=== PATIENT | male | born 1945 | race Caucasian/White ===

== ENCOUNTER → 2016-07-26 | Outpatient (CLI) | payer OTHER ==
[~2016-07-26] MED LIST: ASPIRIN81 M1 PO; AVPAK AZITHROM250 M1 PO; BUMETANIDE2 MG PO; CATAPRES-TTS 10.1 MG PO; CLONIDINE HCL0.1 MG PO; CLONIDINE0.1 MG PO; K-DUR 1010 MEQ PO; K-TAB20 MEQ PO; LANTUS100 U/ML SC; LASIX40 MG PO; LIPITOR40 MG PO; LIPITOR80 MG PO; METOPROLOL SR100 MG PO; Metformin Hydr500 MG PO; OMEPRAZOLE20 M2 PO; PRILOSEC20 M1 PO; TERAZOSIN HCL10 M1 PO; VITAMIN D2000 IU PO; XARE15TA PO; ZESTRIL20 MG PO; ZESTRIL40 MG PO; Zestril,Prinivi40 MG PO
== END | disposition home or self-care (01) ==
LOC: LAB 09:30
PROVIDERS: Internal Medicine
DX: I10 Essential (primary) hypertension (principal)

== ENCOUNTER 2016-08-05 10:17 | Inpatient (IN) | payer OTHER ==
[~2016-08-05] VITALS: Ht 177.8 cm; Wt 110.8 kg
[2016-08-05] VITALS (9 sets, daily range): BP systolic 133–239; BP diastolic 52–94
[2016-08-05] MEDS ORDERED: XARELTO20 M1 PO (10:38)
[2016-08-05] MEDS ORDERED: TRAMADOL HCL50 MG PO (10:42)
[2016-08-05] MEDS ORDERED: SINGULAIR10 M1 PO (10:45)
[2016-08-05 10:47] LABS: HEMATOCRIT 38.8 % (42.0-52.0); HEMOGLOBIN 12.8 g/dl (14.0-18.0); MEAN CELL VOLUME 92.2 fl (80.0-94.0); MEAN CORPUSCULAR HGB 30.4 pg (27.0-31.0); MEAN PLATELET VOLUME 9.8 fl (9.6-12.3); PLATELET COUNT AUTOMATED 145 10*3/uL (130-400); RED BLOOD COUNT 4.21 10*6/uL (4.50-5.90)
[2016-08-05] MEDS ORDERED: LANTUS100 U/ML SC (10:47)
[2016-08-05] MEDS ORDERED: CRESTOR20 M1 PO (10:48)
[2016-08-05] MEDS ORDERED: TRAZODONE50 MG PO (10:51)
[2016-08-05] MEDS ORDERED: MIRALAX17 GM PO (10:51)
[2016-08-05] MEDS ORDERED: KLOR-CON 1010 ME1 PO (10:52)
[2016-08-05] MEDS ORDERED: NASONEX0.05 MG/AC NAS (10:52)
[2016-08-05] MEDS ORDERED: ALLOPURINOL100 MG PO (10:52)
[2016-08-05] MEDS ORDERED: Zaroxolyn,Diul2.5 MG PO (10:53)
[2016-08-05 10:55] LABS: INTERNATIONAL NORM RATIO 1.2 (2.0-3.5); PROTHROMBIN TIME 12.6 SECONDS (9.0-12.4)
[2016-08-05 11:04] LABS: ALBUMIN 3.4 gm/dl (3.1-4.5); BILIRUBIN, TOTAL 1.6 mg/dl (0.2-1.0); POTASSIUM 3.2 mmol/L (3.5-5.1); TOTAL PROTEIN 7.9 gm/dL (6.4-8.2)
[2016-08-05 11:08] LABS: LYMPHOCYTE # 0.2 10*3/uL (1.3-4.4); MONOCYTE # 0.1 10*3/uL (0.1-1.0); NEUTROPHIL # 6.7 10*3/uL (2.3-7.9); NEUTROPHILS 95 % (47-73); PLATELET SUFFICIENCY NORMAL (NORMAL); TOTAL CELLS COUNTED 100 #CELLS
[2016-08-05 11:44] LABS: BILIRUBIN NEGATIVE (NEGATIVE); BLOOD 2+ (NEGATIVE); CLARITY CLEAR (CLEAR); COLOR YELLOW (YELLOW); GLUCOSE 2+ (NEGATIVE); KETONE NEGATIVE (NEGATIVE); LEUKO ESTERASE NEGATIVE (NEGATIVE); NITRITE NEGATIVE (NEGATIVE); PROTEIN 3+ (NEGATIVE); UROBILINOGEN 0.2 E.U./dl (0.2-1.0)
[2016-08-05 11:56] LABS: MUCOUS TRACE; URINE REFLEX COMMENT YES (NO)
[2016-08-06] VITALS: BP 140/66
[2016-08-06 06:09] LABS: BASO % 0.1 % (0.0-1.0); EOS % 0.1 % (1.0-4.0); HEMATOCRIT 36.2 % (42.0-52.0); HEMOGLOBIN 11.9 g/dl (14.0-18.0); LYMPH # 0.8 10*3/uL (1.3-4.4); LYMPH % 11.1 % (27.0-41.0); MEAN CELL VOLUME 92.1 fl (80.0-94.0); MEAN CORPUSCULAR HGB 30.3 pg (27.0-31.0); MEAN CORPUSCULAR HGB CONC 32.9 g/dl (33.0-37.0); MEAN PLATELET VOLUME 10.4 fl (9.6-12.3); MONO # 0.5 10*3/uL (0.1-1.0); MONO % 6.7 % (3.0-9.0); NEUT # 6.1 10*3/uL (2.3-7.9); NEUT % 81.7 % (47.0-73.0); PLATELET COUNT AUTOMATED 158 10*3/uL (130-400); RED BLOOD COUNT 3.93 10*6/uL (4.50-5.90); RED CELL DISTRI WIDTH 13.9 % (0-14.5); WHITE BLOOD COUNT 7.5 10*3/uL (4.8-10.8)
[2016-08-06 06:41] LABS: ALBUMIN 2.8 gm/dl (3.1-4.5); BILIRUBIN, TOTAL 0.9 mg/dl (0.2-1.0); FREE T4 1.18 ng/dl (0.76-1.46); INTERNATIONAL NORM RATIO 1.2 (2.0-3.5); MAGNESIUM 1.4 mg/dL (1.5-2.1); PHOSPHOROUS 2.4 mg/dL (2.5-4.9); POTASSIUM 3.3 mmol/L (3.5-5.1); PROTHROMBIN TIME 12.7 SECONDS (9.0-12.4); TOTAL PROTEIN 6.7 gm/dL (6.4-8.2)
[2016-08-06 06:45] LABS: THYROID STIM HORMONE (HS) 1.16 uIU/ml (0.358-4.75)
[2016-08-06 08:00] VITALS: BP 184/80
[2016-08-06 09:19] LABS: VITAMIN D, 25-HYDROXY 38.1 ng/mL (30-100)
[2016-08-06 09:20] LABS: FOLIC ACID 11.09 ng/mL (>5.38)
[2016-08-06] MEDS ORDERED: LISINOPRIL40 MG PO (09:31)
[2016-08-06 12:00] VITALS: BP 154/68
[2016-08-06 16:00] VITALS: BP 176/84
[2016-08-06] MEDS ORDERED: CLONIDINE0.2 MG PO (16:58)
[2016-08-06 20:00] VITALS: BP 172/78
[2016-08-07] VITALS: BP 150/86
[2016-08-07 08:15] VITALS: BP 166/80
[2016-08-07 12:00] VITALS: BP 134/64
[2016-08-07 16:00] VITALS: BP 120/84
[2016-08-07] MEDS ORDERED: OMEPRAZOLE40 MG PO (16:33)
== END 2016-08-07 17:32 | disposition home or self-care (01) | DRG 305 ==
LOC: ED 10:17 → EDHOLD 13:02 → 4E 13:02
PROVIDERS: Internal Medicine; Nurse Practitioner Family
DX: I16.0 Hypertensive urgency (principal); E11.22 Type 2 diabetes mellitus with diabetic chronic kidney disease; I50.32 Chronic diastolic (congestive) heart failure; I82.621 Acute embolism and thrombosis of deep veins of right upper extremity; I13.0 Hypertensive heart and chronic kidney disease with heart failure and stage 1 through stage 4 chronic kidney disease, or unspecified chronic kidney disease; E11.51 Type 2 diabetes mellitus with diabetic peripheral angiopathy without gangrene; N18.3 Chronic kidney disease, stage 3 (moderate); I44.0 Atrioventricular block, first degree; E78.5 Hyperlipidemia, unspecified; N40.0 Benign prostatic hyperplasia without lower urinary tract symptoms; Z87.891 Personal history of nicotine dependence; Z87.01 Personal history of pneumonia (recurrent); Z82.49 Family history of ischemic heart disease and other diseases of the circulatory system; Z83.6 Family history of other diseases of the respiratory system; Z79.82 Long term (current) use of aspirin; Z79.4 Long term (current) use of insulin; Z79.899 Other long term (current) drug therapy

== ENCOUNTER 2016-08-23 12:00 | Inpatient (IN) | payer OTHER ==
[~2016-08-23] VITALS: Ht 177.8 cm; Wt 117.2 kg
[2016-08-23] VITALS (10 sets, daily range): BP systolic 132–224; BP diastolic 52–106
--- NOTE | ~2016-08-23 | EKG ---
[place], [place] ELECTROCARDIOGRAM REPORT NAME: ALIE CARUSO UNIT #: [id number] ROOM: [facility] DOCTOR: CHAVA RUEDA MD BIRTHDATE: [birth year] DOS: 08/24/2016 TIME: 13:22 p.m. FINDINGS: Normal sinus rhythm at rate 68. Leftward axis. Nonspecific T-wave abnormality. First degree AV block. Abnormal electrocardiogram. CHAVA RUEDA MD CM:EKGRPT:ELECTROCARDIOGRAM REPORT [id number] CHAVA RUEDA MD
--- NOTE | ~2016-08-23 | CON ---
[place], [place] REPORT OF CONSULTATION NAME: ALIE CARUSO UNIT #: [id number] ROOM: 505 DOCTOR: LIS CANORENATO BIRTHDATE: [birth year] DOS: 08/25/2016 GASTROENDOSCOPIC REPORT HISTORY OF PRESENT ILLNESS: A 71-year-old patient who presented with chief complaint of abdominal pain, epigastric distress, pelvic pain, left lower quadrant pain and nausea. The patient was found to have VRE UTI. PAST MEDICAL HISTORY: VRE UTI, diabetes mellitus, congestive heart failure, BPH, hyperlipidemia, hypertension, peripheral vascular disease. PAST SURGICAL HISTORY: Prostate, tonsillectomy, adenoidectomy. SOCIAL HISTORY: Alcohol consumption with toxic levels at the time of admission, smoker. FAMILY HISTORY: Noncontributory. ALLERGIES: No known. MEDICATIONS: List has been reviewed including omeprazole. MEDICATIONS: List has been reviewed. REVIEW OF SYSTEMS: HEENT: Denies double vision or blurred vision. RESPIRATORY: Denies shortness of breath. CARDIOVASCULAR: Denies acute chest pain. DIGESTIVE SYSTEM: Nausea, vomiting. GENITOURINARY: UTI VRE positive. PHYSICAL EXAMINATION: VITAL SIGNS: Stable. HEENT: Head normocephalic, nontraumatic. Mouth buccal mucosa benign. NECK: Supple, no thyromegaly. CHEST: Symmetric anatomy, equal expansion. Decreased air entry, bibasilar, more so on the left base. HEART: Normal sinus rhythm, no gallop, no murmur. ABDOMEN: Protruding, large, not tender. Bowel sounds present. No hepato-organomegaly can be assessed. EXTREMITIES: Trace pedal edema bilaterally, stasis dermatitis of mild degree. NEUROLOGIC: Alert, oriented to time, place, person. Sensory, motor intact. Cranial nerves 2-12 intact. IMPRESSION: Nausea, vomiting, UTI. Nausea could be somewhat reactive secondary to his VRE sepsis of greater than 100,000 population of bacteria. His labs and records have been reviewed. His latest white blood cells 5.6, H and H of 10 and 32. Basic metabolic panel, CBC and CT scan of the abdomen and sonographic have been reviewed. [place], [place] REPORT OF CONSULTATION NAME: ALIE CARUSO UNIT #: [id number] ROOM: 505 DOCTOR: LIS CANO,RENATO BIRTHDATE: [birth year] PLAN AND DISCUSSION: Will have standing by antibiotic therapy. Case discussed with Dr. Garcia workup in progress. RENATO HAYS MD CM:CONSTR:REPORT OF CONSULTATION 1318 08/26/16 0505 interface
[~2016-08-23 12:00] MED LIST changes: +ALLOPURINOL100 MG PO; +CLONIDINE0.2 MG PO; +CRESTOR20 M1 PO; +KLOR-CON 1010 ME1 PO; +LISINOPRIL40 MG PO; +MIRALAX17 GM PO; +NASONEX0.05 MG/AC NAS; +OMEPRAZOLE40 MG PO; +SINGULAIR10 M1 PO; +TRAMADOL HCL50 MG PO; +TRAZODONE50 MG PO; +XARELTO20 M1 PO; +Zaroxolyn,Diul2.5 MG PO
[2016-08-23 13:16] LABS: BASO % 0.2 % (0.0-1.0); HEMATOCRIT 37.4 % (42.0-52.0); HEMOGLOBIN 12.6 g/dl (14.0-18.0); LYMPH # 0.7 10*3/uL (1.3-4.4); LYMPH % 11.9 % (27.0-41.0); MEAN CELL VOLUME 91.4 fl (80.0-94.0); MEAN CORPUSCULAR HGB 30.8 pg (27.0-31.0); MEAN CORPUSCULAR HGB CONC 33.7 g/dl (33.0-37.0); MEAN PLATELET VOLUME 9.7 fl (9.6-12.3); MONO # 0.2 10*3/uL (0.1-1.0); MONO % 3.9 % (3.0-9.0); NEUT # 4.7 10*3/uL (2.3-7.9); NEUT % 83.6 % (47.0-73.0); PLATELET COUNT AUTOMATED 186 10*3/uL (130-400); RED BLOOD COUNT 4.09 10*6/uL (4.50-5.90); RED CELL DISTRI WIDTH 13.2 % (0-14.5); WHITE BLOOD COUNT 5.6 10*3/uL (4.8-10.8)
[2016-08-23 13:34] LABS: ALBUMIN 2.8 gm/dl (3.1-4.5); BILIRUBIN, TOTAL 0.6 mg/dl (0.2-1.0); MAGNESIUM 1.3 mg/dL (1.5-2.1); POTASSIUM 3.7 mmol/L (3.5-5.1); TOTAL PROTEIN 7.2 gm/dL (6.4-8.2)
[2016-08-23 13:36] LABS: TROPONIN I 0.02 ng/ml (<0.045)
[2016-08-23 13:41] LABS: THYROID STIM HORMONE (HS) 1.27 uIU/ml (0.358-4.75)
[2016-08-23 14:51] LABS: BILIRUBIN NEGATIVE (NEGATIVE); BLOOD 2+ (NEGATIVE); CLARITY CLEAR (CLEAR); COLOR YELLOW (YELLOW); GLUCOSE NEGATIVE (NEGATIVE); KETONE NEGATIVE (NEGATIVE); LEUKO ESTERASE TRACE (NEGATIVE); NITRITE NEGATIVE (NEGATIVE); PROTEIN 3+ (NEGATIVE); SPECIFIC GRAVITY 1.015 (1.005-1.030); UROBILINOGEN 0.2 E.U./dl (0.2-1.0)
[2016-08-23 14:59] LABS: BACTERIA 3+; RBC 21-30 rbc/hpf (0-2); URINE AMPHETAMINES < 1000 (1000ng/ml); URINE BARBITURATES < 200 (200ng/ml); URINE COCAINE < 300 (300ng/ml); URINE REFLEX COMMENT YES (NO)
[2016-08-23 15:13] LABS: LA>2 REFLEX 2 HR DRAW NOW
[2016-08-23 15:37] LABS: LA>2 RFLX FOLLOW UP AT 2 HRS 5.4 mmol/L (0.4-2.0)
[2016-08-23 17:30] LABS: LA>2 REFLEX 4 HR DRAW NOW
[2016-08-24] VITALS (7 sets, daily range): BP systolic 130–170; BP diastolic 54–82
[2016-08-24 00:54] LABS: CKMB 1.1 ng/ml (0.5-3.6)
[2016-08-24 00:55] LABS: CKMB 1.2 ng/ml (0.5-3.6)
[2016-08-24 00:59] LABS: TROPONIN I 0.103 ng/ml (<0.045); TROPONIN I 0.107 ng/ml (<0.045)
[2016-08-24 06:15] LABS: BASO % 0.4 % (0.0-1.0); EOS % 0.2 % (1.0-4.0); HEMOGLOBIN 10.7 g/dl (14.0-18.0); LYMPH # 1.1 10*3/uL (1.3-4.4); LYMPH % 19.5 % (27.0-41.0); MEAN CELL VOLUME 91.7 fl (80.0-94.0); MEAN CORPUSCULAR HGB 30.7 pg (27.0-31.0); MEAN CORPUSCULAR HGB CONC 33.4 g/dl (33.0-37.0); MEAN PLATELET VOLUME 9.9 fl (9.6-12.3); MONO # 0.6 10*3/uL (0.1-1.0); MONO % 11.4 % (3.0-9.0); NEUT # 3.8 10*3/uL (2.3-7.9); NEUT % 68.1 % (47.0-73.0); PLATELET COUNT AUTOMATED 148 10*3/uL (130-400); RED BLOOD COUNT 3.49 10*6/uL (4.50-5.90); RED CELL DISTRI WIDTH 13.4 % (0-14.5); WHITE BLOOD COUNT 5.6 10*3/uL (4.8-10.8)
[2016-08-24 06:28] LABS: CKMB 1.1 ng/ml (0.5-3.6)
[2016-08-24 06:36] LABS: TROPONIN I 0.071 ng/ml (<0.045)
[2016-08-24 06:47] LABS: ALBUMIN 2.5 gm/dl (3.1-4.5); POTASSIUM 3.4 mmol/L (3.5-5.1)
[2016-08-24 06:49] LABS: BILIRUBIN, TOTAL 0.7 mg/dl (0.2-1.0); TOTAL PROTEIN 6.2 gm/dL (6.4-8.2)
[2016-08-25 00:19] VITALS: BP 172/88
[2016-08-25 07:38] LABS: ALBUMIN 2.4 gm/dl (3.1-4.5); MAGNESIUM 1.7 mg/dL (1.5-2.1); PHOSPHOROUS 3.4 mg/dL (2.5-4.9); POTASSIUM 3.6 mmol/L (3.5-5.1)
[2016-08-25 08:00] VITALS: BP 158/70
[2016-08-25 12:00] VITALS: BP 161/69
[2016-08-25 16:00] VITALS: BP 152/70
[2016-08-25 20:00] VITALS: BP 175/79
[2016-08-26] VITALS: BP 175/74
[2016-08-26 08:00] VITALS: BP 140/82
[2016-08-26] MEDS ORDERED: AUGMENTIN 875875 MG PO (10:46)
[2016-08-26] MEDS ORDERED: D-1000 185 MG-11 TAB PO (10:46)
[2016-08-26 12:00] VITALS: BP 128/76
== END 2016-08-26 13:28 | disposition home or self-care (01) | DRG 871 ==
LOC: ED 12:00 → EDHOLD 15:20 → 5E 15:20
PROVIDERS: Emergency Medicine; Hospitalist; Internal Medicine
DX: A41.9 Sepsis, unspecified organism (principal); N17.0 Acute kidney failure with tubular necrosis; E43 Unspecified severe protein-calorie malnutrition; I50.33 Acute on chronic diastolic (congestive) heart failure; I13.0 Hypertensive heart and chronic kidney disease with heart failure and stage 1 through stage 4 chronic kidney disease, or unspecified chronic kidney disease; N30.01 Acute cystitis with hematuria; R65.20 Severe sepsis without septic shock; N18.3 Chronic kidney disease, stage 3 (moderate); E78.5 Hyperlipidemia, unspecified; N40.0 Benign prostatic hyperplasia without lower urinary tract symptoms; E11.22 Type 2 diabetes mellitus with diabetic chronic kidney disease; Z86.718 Personal history of other venous thrombosis and embolism; Z68.36 Body mass index [BMI] 36.0-36.9, adult; D64.9 Anemia, unspecified; F10.10 Alcohol abuse, uncomplicated; E87.6 Hypokalemia; E11.65 Type 2 diabetes mellitus with hyperglycemia; E11.51 Type 2 diabetes mellitus with diabetic peripheral angiopathy without gangrene; Z87.01 Personal history of pneumonia (recurrent); Z87.891 Personal history of nicotine dependence; Z84.2 Family history of other diseases of the genitourinary system; Z83.3 Family history of diabetes mellitus; Z82.49 Family history of ischemic heart disease and other diseases of the circulatory system; Z79.899 Other long term (current) drug therapy

== ENCOUNTER → 2016-09-04 | Outpatient (CLI) | payer OTHER ==
[~2016-09-04] MED LIST changes: +AUGMENTIN 875875 MG PO; +D-1000 185 MG-11 TAB PO
[2016-09-04 11:56] LABS: URINE TOTAL PROTEIN CONC 181.7 mg/dL (<11.9)
== END | disposition home or self-care (01) ==
LOC: LAB 10:49
PROVIDERS: Internal Medicine
DX: R80.9 Proteinuria, unspecified (principal)

== ENCOUNTER → 2016-09-27 | Outpatient (CLI) | payer OTHER ==
[2016-09-27 14:57] LABS: HEMOGLOBIN A1c 7.6 % (4.8-5.6)
== END | disposition home or self-care (01) ==
LOC: LAB 13:58
PROVIDERS: Internal Medicine
DX: E11.43 Type 2 diabetes mellitus with diabetic autonomic (poly)neuropathy (principal)

== ENCOUNTER → 2016-09-29 | Outpatient (CLI) | payer OTHER | END | disposition home or self-care (01) | LOC: RAD 13:38 | DX: M25.461 Effusion, right knee (principal) ==

== ENCOUNTER → 2016-10-13 | Outpatient (CLI) | payer OTHER ==
[2016-10-13 13:17] LABS: BASO % 0.4 % (0.0-1.0); EOS # 0.1 10*3/uL (0.0-0.4); EOS % 1.4 % (1.0-4.0); HEMATOCRIT 34.3 % (42.0-52.0); LYMPH # 0.8 10*3/uL (1.3-4.4); LYMPH % 13.6 % (27.0-41.0); MEAN CELL VOLUME 95.8 fl (80.0-94.0); MEAN CORPUSCULAR HGB 30.7 pg (27.0-31.0); MEAN CORPUSCULAR HGB CONC 32.1 g/dl (33.0-37.0); MONO # 0.4 10*3/uL (0.1-1.0); NEUT # 4.4 10*3/uL (2.3-7.9); NEUT % 77.4 % (47.0-73.0); PLATELET COUNT AUTOMATED 169 10*3/uL (130-400); RED BLOOD COUNT 3.58 10*6/uL (4.50-5.90); RED CELL DISTRI WIDTH 14.4 % (0-14.5); WHITE BLOOD COUNT 5.7 10*3/uL (4.8-10.8)
[2016-10-13 13:25] LABS: BILIRUBIN NEGATIVE (NEGATIVE); BLOOD 2+ (NEGATIVE); CLARITY SL CLOUDY (CLEAR); COLOR YELLOW (YELLOW); GLUCOSE NEGATIVE (NEGATIVE); KETONE NEGATIVE (NEGATIVE); LEUKO ESTERASE NEGATIVE (NEGATIVE); NITRITE NEGATIVE (NEGATIVE); PROTEIN 3+ (NEGATIVE)
[2016-10-13 13:28] LABS: URINE TP/CRE RATIO 3.9 (<0.21)
[2016-10-13 13:41] LABS: ALBUMIN 2.8 gm/dl (3.1-4.5); MAGNESIUM 1.7 mg/dL (1.5-2.1); PHOSPHOROUS 3.4 mg/dL (2.5-4.9); POTASSIUM 3.9 mmol/L (3.5-5.1)
[2016-10-13 13:43] LABS: BACTERIA TRACE; EPITHELIAL CELLS 0-2; MUCOUS TRACE; RBC 0-2 rbc/hpf (0-2); URINE REFLEX COMMENT YES (NO)
[2016-10-13 14:25] LABS: FERRITIN 73.9 ng/mL (22.0-322.0); VITAMIN D, 25-HYDROXY 33.2 ng/mL (30-100)
== END | disposition home or self-care (01) ==
LOC: LAB 12:37
PROVIDERS: Internal Medicine Nephrology
DX: N18.3 Chronic kidney disease, stage 3 (moderate) (principal); N25.81 Secondary hyperparathyroidism of renal origin; E83.42 Hypomagnesemia; D63.1 Anemia in chronic kidney disease; Z79.899 Other long term (current) drug therapy

== ENCOUNTER → 2016-10-15 | Outpatient (CLI) | payer OTHER ==
[2016-10-15 12:17] LABS: URINE TOTAL PROTEIN CONC 248.5 mg/dL (<11.9)
[2016-10-15 12:20] LABS: PATIENT HEIGHT 70.5 Inches
== END | disposition home or self-care (01) ==
LOC: LAB 11:16
PROVIDERS: Internal Medicine Nephrology
DX: N18.3 Chronic kidney disease, stage 3 (moderate) (principal); E83.42 Hypomagnesemia; D63.1 Anemia in chronic kidney disease; Z79.899 Other long term (current) drug therapy

== ENCOUNTER 2016-11-09 15:09 | Inpatient (IN) | payer OTHER ==
[~2016-11-09] VITALS: Ht 177.8 cm; Wt 121.1 kg
[2016-11-09 15:30] VITALS: BP 172/92
[2016-11-09 17:16] LABS: BASO % 0.1 % (0.0-1.0); EOS % 0.1 % (1.0-4.0); HEMOGLOBIN 12.1 g/dl (14.0-18.0); LYMPH # 0.5 10*3/uL (1.3-4.4); LYMPH % 8.1 % (27.0-41.0); MEAN CELL VOLUME 96.1 fl (80.0-94.0); MEAN CORPUSCULAR HGB 31.4 pg (27.0-31.0); MEAN CORPUSCULAR HGB CONC 32.7 g/dl (33.0-37.0); MEAN PLATELET VOLUME 11.2 fl (9.6-12.3); MONO # 0.5 10*3/uL (0.1-1.0); MONO % 6.7 % (3.0-9.0); NEUT # 5.7 10*3/uL (2.3-7.9); NEUT % 84.7 % (47.0-73.0); PLATELET COUNT AUTOMATED 123 10*3/uL (130-400); RED BLOOD COUNT 3.85 10*6/uL (4.50-5.90); RED CELL DISTRI WIDTH 13.9 % (0-14.5); WHITE BLOOD COUNT 6.7 10*3/uL (4.8-10.8)
[2016-11-09 17:33] LABS: ALBUMIN 2.7 gm/dl (3.1-4.5); BILIRUBIN, TOTAL 1.1 mg/dl (0.2-1.0); FREE T4 1.17 ng/dl (0.76-1.46); POTASSIUM 3.7 mmol/L (3.5-5.1); TOTAL PROTEIN 6.5 gm/dL (6.4-8.2)
[2016-11-09 17:37] LABS: TROPONIN I 0.072 ng/ml (<0.045)
[2016-11-09] MEDS ORDERED: Lasix80 MG PO (17:38)
[2016-11-09 17:49] LABS: THYROID STIM HORMONE (HS) 1.06 uIU/ml (0.358-4.75)
[2016-11-09 20:00] VITALS: BP 170/80
[2016-11-10] VITALS: BP 170/82
[2016-11-10 06:46] LABS: PHOSPHOROUS 2.3 mg/dL (2.5-4.9)
[2016-11-10 06:52] LABS: HEMOGLOBIN A1c 6.5 % (4.8-5.6)
[2016-11-10 07:47] LABS: VITAMIN D, 25-HYDROXY 35.9 ng/mL (30-100)
[2016-11-10 07:48] LABS: FOLIC ACID 7.8 ng/mL (>5.38)
[2016-11-10 08:00] VITALS: BP 166/82; BP 184/82
[2016-11-10 16:00] VITALS: BP 152/72
[2016-11-11] VITALS: BP 115/86
[2016-11-11 07:37] LABS: PHOSPHOROUS 3.4 mg/dL (2.5-4.9); POTASSIUM 3.6 mmol/L (3.5-5.1)
[2016-11-11 08:00] VITALS: BP 160/82
[2016-11-11 12:00] VITALS: BP 156/80
[2016-11-11 16:26] VITALS: BP 140/90
[2016-11-12] VITALS: BP 140/66
[2016-11-12 08:00] VITALS: BP 166/94
[2016-11-12 16:00] VITALS: BP 140/86
[2016-11-13] VITALS: BP 140/90
[2016-11-13 08:00] VITALS: BP 160/80
[2016-11-13] MEDS ORDERED: BUMETANIDE2 MG PO (09:25)
== END 2016-11-13 10:05 | disposition home or self-care (01) | DRG 291 ==
LOC: 5E 15:09
PROVIDERS: Internal Medicine
DX: I13.0 Hypertensive heart and chronic kidney disease with heart failure and stage 1 through stage 4 chronic kidney disease, or unspecified chronic kidney disease (principal); I50.33 Acute on chronic diastolic (congestive) heart failure; E43 Unspecified severe protein-calorie malnutrition; E11.42 Type 2 diabetes mellitus with diabetic polyneuropathy; E11.22 Type 2 diabetes mellitus with diabetic chronic kidney disease; D69.6 Thrombocytopenia, unspecified; E11.43 Type 2 diabetes mellitus with diabetic autonomic (poly)neuropathy; E11.51 Type 2 diabetes mellitus with diabetic peripheral angiopathy without gangrene; K31.84 Gastroparesis; N40.0 Benign prostatic hyperplasia without lower urinary tract symptoms; N18.3 Chronic kidney disease, stage 3 (moderate); Z86.718 Personal history of other venous thrombosis and embolism; K21.9 Gastro-esophageal reflux disease without esophagitis; E78.5 Hyperlipidemia, unspecified; Z87.442 Personal history of urinary calculi; Z87.891 Personal history of nicotine dependence; Z79.4 Long term (current) use of insulin; E55.9 Vitamin D deficiency, unspecified; F10.10 Alcohol abuse, uncomplicated; E66.09 Other obesity due to excess calories; Z68.37 Body mass index [BMI] 37.0-37.9, adult; M1A.9XX0 Chronic gout, unspecified, without tophus (tophi); G47.00 Insomnia, unspecified; D53.9 Nutritional anemia, unspecified; D72.825 Bandemia; E83.39 Other disorders of phosphorus metabolism; E80.6 Other disorders of bilirubin metabolism

== ENCOUNTER → 2017-02-16 | Outpatient (CLI) | payer OTHER ==
[~2017-02-16] MED LIST changes: +Lasix80 MG PO
[2017-02-16 10:01] LABS: ALBUMIN 2.4 gm/dl (3.1-4.5); CREATININE 2.28 mg/dL (0.70-1.30); MAGNESIUM 1.7 mg/dL (1.5-2.1); PHOSPHOROUS 2.7 mg/dL (2.5-4.9); POTASSIUM 3.1 mmol/L (3.5-5.1)
[2017-02-16 10:10] LABS: BASO % 0.3 % (0.0-1.0); EOS # 0.1 10*3/uL (0.0-0.4); EOS % 1.5 % (1.0-4.0); HEMOGLOBIN 12.7 g/dl (14.0-18.0); LYMPH # 1.1 10*3/uL (1.3-4.4); LYMPH % 18.5 % (27.0-41.0); MEAN CORPUSCULAR HGB 31.8 pg (27.0-31.0); MEAN CORPUSCULAR HGB CONC 33.4 g/dl (33.0-37.0); MEAN PLATELET VOLUME 10.3 fl (9.6-12.3); MONO # 0.5 10*3/uL (0.1-1.0); MONO % 7.8 % (3.0-9.0); NEUT # 4.4 10*3/uL (2.3-7.9); NEUT % 71.6 % (47.0-73.0); PLATELET COUNT AUTOMATED 158 10*3/uL (130-400); RED CELL DISTRI WIDTH 13.3 % (0-14.5); WHITE BLOOD COUNT 6.2 10*3/uL (4.8-10.8)
[2017-02-16 10:57] LABS: FERRITIN 187.9 ng/mL (22.0-322.0); PTH INTACT 51.7 pg/mL (14.0-72.0); VITAMIN D, 25-HYDROXY 33.8 ng/mL (30-100)
[2017-02-16 14:40] LABS: BILIRUBIN NEGATIVE (NEGATIVE); BLOOD TRACE-INTACT (NEGATIVE); CLARITY SL CLOUDY (CLEAR); COLOR YELLOW (YELLOW); GLUCOSE NEGATIVE (NEGATIVE); KETONE NEGATIVE (NEGATIVE); LEUKO ESTERASE NEGATIVE (NEGATIVE); NITRITE NEGATIVE (NEGATIVE)
[2017-02-16 14:50] LABS: URINE CREATININE RANDOM 92.3 mg/dL
[2017-02-16 14:55] LABS: BACTERIA 4+
== END | disposition home or self-care (01) ==
LOC: LAB 09:18
PROVIDERS: Internal Medicine Nephrology
DX: N18.3 Chronic kidney disease, stage 3 (moderate) (principal); D63.1 Anemia in chronic kidney disease; N25.81 Secondary hyperparathyroidism of renal origin; E83.42 Hypomagnesemia; Z79.899 Other long term (current) drug therapy

== ENCOUNTER 2017-02-21 10:37 | Inpatient (IN) | payer OTHER ==
[~2017-02-21] VITALS: Ht 177.8 cm; Wt 121.1 kg
--- NOTE | ~2017-02-21 | PR ---
[place], [place] PROGRESS NOTE NAME: ALIE CARUSO [facility] #: [id number] UNIT #: [id number] ROOM: 427 DOCTOR: ELVA JENSEN MD BIRTHDATE: [birth year] DOS: 02/24/2017 SUBJECTIVE: He was seen by Dr. Keita yesterday and the day before. He apparently had come in because of increasing shortness of breath and swelling in the legs. He has essential hypertension and has had diastolic heart failure previously. PHYSICAL EXAMINATION: GENERAL: His breathing appeared to be better. He is not in any distress, very comfortable. Complexion is fine. VITAL SIGNS: Pulse is 66. Blood pressure is 130/52. NECK: JVP appears to be normal. LUNGS: He has moderately diminished breath sounds with lot of crackles in both lungs. EXTREMITIES: He has 2+ edema in the lower extremities and has pressure stockings on. He had a right thoracentesis done today and chest x-ray had shown no pneumothorax and a small right pleural effusion. BUN is 24, creatinine 2.98, potassium 3.6. An echocardiogram demonstrated normal LV systolic function. IMPRESSION: 1. This patient has diastolic heart failure that seemed to be better. 2. Significant renal insufficiency is present and diuretics have to be used cautiously for fear of making this worse. ELVA JENSEN MD CM:PNTRANS [phone] ELVA JENSEN MD 02/24/17 2337 interface
--- NOTE | ~2017-02-21 | PR ---
[place], [place] [facility]GRESS [id number] UNIT #: [id number] ROOM: 427 DOCTOR: CARLOZ ARGUETA MD BIRTHDATE: [birth year] DOS: 02/28/2017 SUBJECTIVE: He has been noted comfortable at this time, sitting on the chair. Denies symptoms of acute shortness of breath, coughing, chest pain or hemoptysis. OBJECTIVE: VITAL SIGNS: Recorded shows a normal temperature, respiratory rate 20, heart rate 61, blood pressure 138/59. Pulse oxygen saturation on room air 94% saturation. HEENT: Examination shows no acute change. NECK: Supple. CARDIOVASCULAR: S1, S2 audible. LUNGS: Mild decreased breath sounds in the left lower lung. ABDOMEN: Soft, nontender. LABORATORY DATA: CMP, 02/28/2017, BUN 34, creatinine 3.23. Glucose 122. Albumin is 1.8. CBC: Hemoglobin 9.5, hematocrit 29.7, platelet count normal and WBC count was normal. Urine for Legionella antigen and streptococcal antigen was noted all negative. Culture of the pleural fluid was noted no bacterial growth. IMPRESSION: 1. The patient with transudative recurrent pleural fluid, lymphadenopathy in the left hilar area, significance unknown. 2. The patient with superimposed chronic kidney disease which has been noted essentially stable. PLAN OF MANAGEMENT: No changes in the plan of treatment at this time, continue the patient on current therapy, plan of care as previously in progress. Discharge planning per primary care physician. Outpatient assessment was suggested post-discharge for further assessment of the abnormal CT scan of the chest findings. [place], [place] PROGRESS NOTE NAME: ALIE CARUSO UNIT #: [id number] ROOM: [facility] DOCTOR: CAROLZ ARGUETA MD BIRTHDATE: [birth year] CARLOZ KIDD MD CM:PNTRANS [phone] CARLOZ SANDHU MD 02/28/17 2242 interface
--- NOTE | ~2017-02-21 | PR ---
[place], [place] PROGRESS NOTE NAME: ALIE CARUSO [facility] #: [id number] UNIT #: [id number] ROOM: 427 DOCTOR: BERNABE SANDHU MD,CARLOZ BIRTHDATE: [birth year] DOS: 02/25/2017 SUBJECTIVE: He had been noted quite comfortable at this time. Thoracentesis done yesterday about 1200 mL. Pleural fluids were removed. The patient has been noted improvement in the respiratory status. After that, he denies any symptoms of chest pain at this time. Coughing has been noted not resolved completely as per patient. OBJECTIVE: VITAL SIGNS: For the patient which were recorded were normal temperature, respiratory rate 18, heart rate 66, blood pressure 138/59-112/76. The pulse oxygen saturation noted as 92%. HEENT: Shows no acute change. NECK: Supple. CARDIOVASCULAR: S1, S2 is audible. LUNGS: The patient was noted without any wheezing or crackles. ABDOMEN: Soft, nontender. EXTREMITIES: Shows no edema. LABORATORY DATA: Workup, connective tissue disorder and others was available. All the workup were tested. Labs were noted negative. The CBC was noted with hemoglobin of 10, hematocrit 30.6, WBC count normal, platelet count was normal. Analysis of the pleural fluid from yesterday, the left pleural space was noted. WBCs of 181 with a various differential including 39% macrophages, 55% neutrophils. Glucose noted 97, total protein of 2.3, cholesterol less than 50, LDH of 118. Triglycerides were normal, albumin 1.8. All noted consistent with findings of transudative effusion. IMPRESSION: 1. Recurrent transudative effusion was noted most likely related to underlying cardiac abnormalities or current acute kidney disease with acute kidney injury would be considered most likely reason of fluid reaccumulation. Creatinine has been noted gradually increased and today was noted as 3.04. 2. Lymph node abnormality. The patient noted left hemithorax, which will be assessed further as an outpatient. 3. Chronic obesity. PLAN OF TREATMENT: No changes from the pulmonary standpoint. Monitor results of the culture and the cytology of the pleural fluid. Continue the close monitoring of the acute kidney injury and management per Nephrology services. Supportive care, repeat plan of management and care plan. Usual treatment. Addition of treatment changes will be made for the patient based on the progression of the illness. [place], [place] PROGRESS NOTE NAME: ALIE CARUSO UNIT #: [id number] ROOM: 427 DOCTOR: CARLOZ ARGUETA MD BIRTHDATE: [birth year] CARLOZ KIDD MD CM:SAHNICE [id number] [id number] CARLOZ SANDHU MD 02/26/17 0020 interface
--- NOTE | ~2017-02-21 | PR ---
[place], [place] PROGRESS NOTE NAME: ALIE CARUSO UNIT #: [id number] ROOM: 427 DOCTOR: EVELIA NUNEZ MD BIRTHDATE: [birth year] DOS: 02/23/2017 24-hour events. I am covering on behalf of Dr. Li. SUBJECTIVE: The patient is positive 100 mL for the last 24 hours. Still complains of significant cough. His ejection fraction was reported to be normal. Dr. Li is to repeat the echocardiogram. Denies any chest discomfort. Does have dyspnea on exertion and productive cough, also has abdominal distention. OBJECTIVE: VITAL SIGNS: Blood pressure is 150/70. He is in sinus rhythm. HEENT: Elevated JVD. LUNGS: Diminished air entry. HEART: Sounds are regular. ABDOMEN: Distended, positive bowel sounds. EXTREMITIES: About 2+ edema. NEUROLOGIC: Stable. LABORATORY DATA: Sodium 138, potassium 3.6, GFR is significantly low at 23, creatinine is 2.7. IMPRESSION: Exacerbation of diastolic heart failure, chronic renal failure, left-sided pleural effusion with multifocal pneumonia, leukocytosis, hypokalemia, hyperlipidemia. RECOMMENDATIONS: Continue the present care. Monitor the renal function very closely. The patient should have very strict I's and O's. Continue with hydralazine, Bumex, Lopressor and clonidine. Consideration should to be given to hold the lisinopril at this point as the creatinine is going up, but continue the hydralazine for unloading along with the Bumex to diminish the preload also with strict I's and O's. Continue antibiotics and we will follow up. [place], [place] PROGRESS NOTE NAME: ALIE CARUSO UNIT #: [id number] ROOM: 427 DOCTOR: EVELIA NUNEZ MD BIRTHDATE: [birth year] EVELIA NUNEZ MD CM:PNTRANS [id number] EVELIA NUNEZ MD 02/23/17 2355 interface
--- NOTE | ~2017-02-21 | PR ---
[place], [place] PROGRESS NOTE NAME: ALIE CARUSO UNIT #: [id number] ROOM: 427 DOCTOR: KYMBERLY CLARK MD BIRTHDATE: [birth year] DOS: SUBJECTIVE: The patient was seen and examined. He appears well. States he is feeling better. No shortness of breath, nausea or vomiting. He is sitting in a chair on room air. PHYSICAL EXAMINATION: VITAL SIGNS: Temperature 98.5, pulse 65, respiratory rate 20, blood pressure 130/56. GENERAL: He is awake and alert, in no acute distress. HEENT: Shows no JVD. LUNGS: Had normal work of breathing. HEART: Normal S1, S2. ABDOMEN: Soft, nontender. EXTREMITIES: Have 1+ edema. SKIN: Showed no rash. LABORATORY DATA: Hemoglobin 9.6, white count is 7.2, platelets 171. Sodium 139, potassium 4.1, CO2 29, BUN 33, creatinine 3.15, calcium 7.6, albumin of 1.8. Blood cultures showed no growth to date. ASSESSMENT AND PLAN: 1. Stage 4 chronic kidney disease. The patient has fluctuating creatinine levels, however, stable today. Diuretics and his CHUY inhibitor, continue. Continue to follow trends while in the hospital. 2. Hypertension. Continue current medications. 3. Anemia. Consideration can be made for erythropoietin stimulating agents at some point. 4. Pleural effusion. He is status post thoracentesis and being followed by pulmonary. 5. History of diabetes. The patient appears to have nephrotic syndrome. Continue supportive care. Again, I did note the patient is on Xarelto. Consideration should be made to discontinue this medication with his fairly advanced renal dysfunction and change to another anticoagulant of choice such as Eliquis or Coumadin. [place], [place] PROGRESS NOTE NAME: ALIE CARUSO UNIT #: [id number] ROOM: 427 DOCTOR: KYMBERLY CLARK MD BIRTHDATE: [birth year] KYMBERLY CLARK MD CM:PNTRANS [id number] KYMBERLY CLARK MD 02/27/17 1728 interface
--- NOTE | ~2017-02-21 | PR ---
[place], [place] PROGRESS NOTE NAME: ALIE CARUSO UNIT #: [id number] ROOM: 427 DOCTOR: KYMBERLY CLARK MD BIRTHDATE: [birth year] DOS: 02/26/2017 SUBJECTIVE: The patient was seen and examined. He is awake and alert. He is on room air, sitting in a chair. Family was visiting. He states he is feeling a little bit better. Denied nausea, vomiting, chest pain or shortness of breath. PHYSICAL EXAMINATION: VITAL SIGNS: Temperature 98.2, pulse 59, respiratory rate 18, blood pressure 151/73. HEENT: Shows no JVD. LUNGS: Diminished breath sounds. No wheeze. HEART: Normal S1, S2. No rub, thrill or gallop. ABDOMEN: Soft, nontender. There is no organomegaly. EXTREMITIES: Have 1-2+ edema. SKIN: Showed no rash. LABORATORY DATA: Hemoglobin 9.7, white count of 8.2, platelets of 171. Sodium 138, potassium 3.8, CO2 of 30, BUN 31, creatinine 3.2, glucose 117, calcium 8.2, albumin 1.8. ASSESSMENT AND PLAN: 1. Stage 4 chronic kidney disease. The patient has had slow rise in his creatinine levels over the past few days. Overall, however, fairly stable for the most part. He remains on diuretics and an CHUY inhibitor. We will continue to follow his creatinine trends while in the hospital. 2. Hypertension. Continue current medications. His CHUY inhibitor can continue, however, if his creatinine continues to rise, this may need to be held for a short period of time. 3. Anemia. The patient has a fairly stable hemoglobin. Consideration can be made to give erythropoietin stimulating agent at some point. 4. Pleural effusion. He is status post thoracentesis. 5. History of diabetes. It appears that the patient has nephrotic syndrome. 6. I also did note the patient was on Xarelto. Would not recommend this medication with his current renal situation. Would consider switching to Eliquis. [place], [place] PROGRESS NOTE NAME: ALIE CARUSO UNIT #: [id number] ROOM: 427 DOCTOR: KYMBERLY CLARK MD BIRTHDATE: [birth year] KYMBERLY CLARK MD CM:PNTRANS [id number] KYMBERLY CLARK MD 02/26/17 1423 interface
--- NOTE | ~2017-02-21 | EKG ---
[place], [place] ELECTROCARDIOGRAM REPORT NAME: ALIE CARUSO UNIT #: [id number] ROOM: 427 DOCTOR: NGHIA MALLORY MD BIRTHDATE: [birth year] DOS: 02/21/2017 EKG REPORT TIME: 12:23:08. RATE AND RHYTHM: Normal sinus rhythm at 90 beats per minute. DC interval 192 milliseconds, QRS duration 83 milliseconds, corrected QT interval is 491 milliseconds, QRS axis is 14. IMPRESSION: 1. Normal sinus rhythm. 2. Nonspecific T-wave abnormalities, lateral leads. 3. Basically it is abnormal EKG. NGHIA MALLORY MD CM:EKGRPT:ELECTROCARDIOGRAM REPORT 1129 1153 NGHIA MALLORY MD
--- NOTE | ~2017-02-21 | PR ---
[place], [place] PROGRESS NOTE [id number] UN[facility] #: [id number] ROOM: 427 DOCTOR: EVELIA NUNEZ MD BIRTHDATE: [birth year] DOS: 02/25/2017 SUBJECTIVE: The patient was seen and evaluated, awake, alert, responsive, does have shortness of breath, has shown improvement. No chest discomfort. The patient was seen by Dr. Li who was covering me yesterday. OBJECTIVE: VITAL SIGNS: Blood pressure is 157/60. HEENT: Elevated JVD. LUNGS: Diminished breath sounds. No wheezing. HEART: Both heart sounds are regular. EXTREMITIES: Leg edema, slightly improving both 1-2+. NEUROLOGIC: Stable. LABORATORY DATA: Sodium 137, potassium 3.7, BUN 29, creatinine 3, hemoglobin 10, hematocrit 30.6. IMPRESSION: Exacerbation of diastolic heart failure, chronic renal failure, pleural effusion. RECOMMENDATIONS: Continue diuretics as ordered. Monitor the renal function very closely. Creatinine is up on p.o. Bumex 2 mg daily. Nephrology is following. The patient is a diabetic with probable glomerular sclerosis. Continue the metoprolol and hydralazine as ordered and atorvastatin. We will follow up. EVELIA NUNEZ MD CM:PNTRANS [phone] EVELIA NUNEZ MD 02/26/17 0355 interface
--- NOTE | ~2017-02-21 | CON ---
[place], [place] REPORT OF CONSULTATION NAME: ALIE CARUSO [facility] #: [id number] UNIT #: [id number] ROOM: 427 DOCTOR: BERNABE SANDHU MDCARLOZ BIRTHDATE: [birth year] DOS: 02/22/2017 CONSULTATION REQUESTED BY: Dr. Devan Garcia. REASON FOR CONSULTATION: To assess the patient for current respiratory symptoms and pleural effusion. HISTORY OF PRESENT ILLNESS: A 72-year-old white male who has been admitted after seen by Dr. De Souza. The patient noted to have severely uncontrolled hypertension. The patient's blood pressure systolic noted more than 200. He has been hospitalized for further medical management. The patient admitted to having symptoms of shortness breath, which has been ongoing for the past couple of days and noted gradually worsening. He has been noted with coughing with cough that has been noted productive sputum, sometime, but other time noted nonproductive as well. He denies any symptoms of chest pain or anginal pain. The patient denies symptoms of hemoptysis. He denies symptoms of wheezing. REVIEW OF SYSTEMS: CONSTITUTIONAL: He was noted with progressive fatigue and tiredness. Denies symptoms of fever or chills. EYES: Denies any burning, redness, or tenderness. ENT: Denies any epistaxis. CARDIOVASCULAR: Intermittent edema of lower extremity has been reported by the patient. Denies symptoms of palpitations. Denies any anginal pain. GASTROINTESTINAL: Dysphagia, nausea, vomiting, diarrhea, abdominal pain, hematemesis, melena, or hematochezia. GENITOURINARY: Denies dysuria, suprapubic pain, or hematuria. The patient has a known history of chronic kidney disease stage III, which has been monitored by the Nephrology services. SKIN: Denies any lesions, rashes or ulcers. CENTRAL NERVOUS SYSTEM: No dizziness, headache, diplopia, syncopal episodes. MUSCULOSKELETAL: Denies any symptoms of any acute joint pain, redness, or tenderness. Remaining systems were reviewed with the patient, they were noted all negative. PAST MEDICAL HISTORY: 1. History of chronic kidney disease stage IV. 2. History of congestive heart failure, diastolic dysfunction reported. 3. History reported for COPD. 4. Deep venous thrombosis. 5. History of esophageal ulceration in the past. 6. Essential hypertension. 7. First-degree AV block. 8. Gastroparesis related to longstanding diabetes mellitus. 9. Type 2 diabetes mellitus. 10. Gastroesophageal reflux. 11. History of gout. 12. Hypercoagulable status with patient noted, but the details were unknown. 13. History of peripheral vascular disease. [place], [place] REPORT OF CONSULTATION NAME: ALIE CARUSO UNIT #: [id number] ROOM: 427 DOCTOR: CARLOZ ARGUETA MD BIRTHDATE: [birth year] 14. History of seasonal allergic rhinitis. 15. Vitamin D deficiency. PAST SURGICAL HISTORY: 1. Prostate biopsy. 2. Tonsillectomy. 3. Colonoscopy and EGD. SOCIAL HISTORY: The patient lives at home. She is . Does not have any children. He has worked in the [employer] and [employer] for 36 years. He has been noted with tobacco use as a teenager 1 to 1-1/2 pack of cigarettes per day for 31 years. The tobacco cessation was done in 1993. History of alcohol use in the form of vodka 4 glasses daily was noted. FAMILY HISTORY: Father at 88 years old, complications of pneumonia, mother for this patient with history of coronary artery disease, age was not known. One of the brother and sister has been also noted , from complications of acute myocardial infarction. HOME MEDICATIONS: Noted use of vitamin D, Bumex, lisinopril, Xarelto, clonidine, metoprolol tartrate, Lantus insulin, trazodone, allopurinol, terazosin, omeprazole, Singulair, Crestor, Nasonex, aspirin, potassium chloride, and other p.r.n. medications administration. DRUG ALLERGIES: No known drug allergies. PHYSICAL EXAMINATION: GENERAL: This is a 72-year-old -[place] male patient who has been currently sitting on the side of the bed without any distress at the time of the assessment. VITAL SIGNS: Height of 5 feet 10 inches, weight 267 pounds and BMI 38.3 recorded by the nursing staff. Normal temperature was recorded, respiratory rate recorded between 20-18, heart rate of 100-69, blood pressure 122/74 noted this morning, the high blood pressure in the hospital noted 180/100. Pulse oxygen saturation of the patient recorded on room air 92% saturation, on 2 liters 97% saturation. HEENT: Chronic obesity. Head was atraumatic. Eyes nonicterus. Severe reduced posterior pharyngeal space. CARDIOVASCULAR: S1, S2 audible. LUNGS: The patient was noted with decreased breaths in the lower portion of the lungs and generalized reduction noted. There were no wheezing or crackles heard. ABDOMEN: Soft, obese, nontender. EXTREMITIES: Shows 1-2+ pitting edema. LABORATORY DATA: Urine culture, which were done as an outpatient for this patient on 02/16/[address] De Souza was noted with heavy growth of gram-positive cocci for the patient isolated with the urine cultures as an outpatient on 02/16/2017, organisms isolated with Enterococcus faecalis, which are noted penicillin sensitive species. The BUN and creatinine of the patient on [place], [place] REPORT OF CONSULTATION NAME: ALIE CARUSO UNIT #: [id number] ROOM: [facility] DOCTOR[facility] BIR[facility]: [birth year] 02/16/2017, outpatient noted BUN 15, creatinine 2.28. The CMP of the patient that was done yesterday shows BUN 18, creatinine 2.29, glucose 235, potassium 3.4. ProBNP was noted elevated at 16,442. CBC of 02/21/2017; WBC count 12.6, hemoglobin 12.9, hematocrit 38.8, platelet count 189,000. Lactic acid 1.5 noted yesterday. CK-MB, troponin of patient on admission CPK 374. CK-MB was normal. Troponin minimally elevated at 0.89. PT/PTT yesterday was noted as normal. Hemoglobin A1c level noted as 6.6 yesterday as well. CBC this morning, normal WBC count and remaining CBC normal, except chronic anemia. BMP this morning, BUN 20, creatinine 2.46. Glucose 228. The repeat urine culture of the patient was still growing heavy growth of gram-positive cocci. The chest x-ray of the patient two-view, which was done in the Emergency Room, was personally reviewed from fax images shows cardiomegaly with evidence of pleural fluid with area of atelectasis in the lower lungs was suspected. Fluid appeared to be larger on the left than the right side. CT scan of the thorax, which was completed without contrast on 02/21/2017, was reviewed shows evidence of moderated-size left pleural fluid noted with area of compression atelectasis or infiltration. Multiple nodular opacities was noted in the lungs bilaterally falling the bronchovascular bundles of different sizes. Review of the past study was also done. There was a CT scan, which was done for this patient on 06/25/2016 did track down the pleural fluid were noted at that time as well, mostly on the left side process, but the nodular densities were not present on the CT scan of the chest. The CT scan was done without contrast for this patient, which does limit the mediastinal structures, however, lymphadenopathy was suspected in the left hilar area for this patient. A very small right pleural fluid was seen. IMPRESSION: 1. The patient who has been currently admitted to the hospital with increased respiratory symptoms of shortness breath, currently noted with chronic pleural fluid on the left side and current nodular density with lymphadenopathy, possible suggestion of malignancy would be considered. This will be followed by additional causes of the current pulmonary nodule pleural fluid as connective tissue disorder, vasculitis, fungal infections and certainly acute bacterial pneumonia, remains in consideration. History of chronic nicotine use for this patient was noted until 1993 with a past diagnosis of COPD. The patient has also known past history of allergic rhinitis. 2. Progressive acute kidney injury the patient related to current acute abnormal process going in the thorax would be considered with intravascular volume depletion or acute tubular necrosis. 3. Urinary tract infection was also suspected for this patient with recurrent enterococcus infection with isolation of the infection, penicillin sensitive species. 4. Chronic obesity. 5. Clinical suspicion of obstructive sleep apnea disorder as well. 6. History of deep venous thrombosis and hypercoagulable status is also described for this patient, which has been treated with the Xarelto. PLAN OF TREATMENT: The sampling of the left pleural fluid will be necessary for the patient for further reassessment. Empirical treatment for the acute infection. The patient has been started on the Zyvox for the enterococcus infection in the urine as well. Monitor platelets closely with that. [place], [place] REPORT OF CONSULTATION NAME: ALIE CARUSO UNIT #: [id number] ROOM: [facility] DOCTOR: CARLOZ ARGUETA MD BIRTHDATE: [birth year] Nephrology services consultation has been already obtained for the assessment of the acute kidney injury, chronic kidney disease stage IV as well. A workup with the patient will be ordered for the vasculitis as well as connective tissue disorders and others with preliminary testing. Watch for the alcohol withdrawal because of history of chronic alcohol dependence as well. Supportive care therapy, plan of management and other care plan. Additional treatment changes will be done based on the progression of the illness. Also, obtain the sputum for Gram stain and culture as well. Thank you for allowing me to participate in the care of this patient. CARLOZ KIDD MD CM:CONSTR:REPORT OF CONSULTATION 1213 02/23/17 0158 interface
--- NOTE | ~2017-02-21 | PROC NOTE ---
[place], [place] PROCEDURE NOTE NAME: ALIE CARUSO UNIT #: [id number] ROOM: 427 DOCTOR: BERNABE SANDHU MD,CARLOZ BIRTHDATE: [birth year] DOS: 02/24/2017 PROCEDURE: Left-sided thoracentesis. PREOPERATIVE DIAGNOSIS: Left pleural fluid of unclear etiology. POSTOPERATIVE DIAGNOSIS: Removal of 1200 mL of pleural fluid from the left pleural space without any difficulty with ultrasound guidance. COMPLICATIONS: None. PROCEDURE DESCRIPTION: Informed consent obtained for the patient. The patient was placed in sitting position. The area was marked for thoracentesis, left posterior space prior to thoracentesis. After that the skin was cleaned with chlorhexidine solution, 1% lidocaine was administered in the skin and intercostal space. During administration of local anesthetic, the left pleural space was entered. A small amount of clear yellow fluid was aspirated. After that small incision given in the skin. [place] thoracentesis catheter was introduced through the incision into the left pleural space without any difficulty. A 1200 mL of pleural fluid was aspirated patient without difficulty into the vacuum bottles. The specimens was taken, sent to the lab where the pH was also sent to the laboratory as well on ice. Chest x-ray was done after the completion of the thoracentesis was then reviewed as portable chest x-ray. Chest x-ray post-thoracentesis completion was noted with complete reexpansion of the lungs without any visible area of pneumothorax. The patient was personally reviewed. The radiologist's report was pending at this time. CARLOZ KIDD MD CM:PROCNOTE:PROCEDURE NOTE 1030 [id number] CARLOZ SANDHU MD
--- NOTE | ~2017-02-21 | PR ---
[place], [place] PROGRESS NOTE [facility] [id number] UNIT #: [id number] ROOM: 427 DOCTOR: MAU PENNY MD BIRTHDATE: [birth year] DOS: SUBJECTIVE: The patient has been admitted to hospital with ____ hypertension, congestive heart failure and with difficulty in breathing due to pleural effusion. The patient is feeling much better today and he had about 1500 mL of fluid removed from his pleural cavity yesterday, which helped him to breathe much better and he is conscious, alert and oriented and sitting in the chair. OBJECTIVE: VITAL SIGNS: His blood pressure is 132/54, pulse 69, respirations 18, temperature 98.2. NECK: Veins are not distended. HEART: Regular. LUNGS: ____ crepitation. ABDOMEN: Soft. Liver and spleen not palpable. EXTREMITIES: The patient has 2+ edema of leg. The patient has some constipation and cough for which I have ordered Robitussin-DM and milk of magnesia. His fluid from the pleural cavity showed moderate white blood cells. No microorganism. No bacterial growth. His CBC today showed hypochromic anemia with hemoglobin 9.7, hematocrit 30, other values are fairly normal. Comprehensive metabolic profile showed glucose 117, BUN 31, creatinine 3.21, GFR 19, indicated the patient has chronic renal disease and the patient is being followed by topographical drafter for that. MAU PENNY MD CM:PNTRANS 1222 [id number] MAU PENNY MD 02/26/17 1316 interface
--- NOTE | ~2017-02-21 | PR ---
[place], [place] PROGRESS NOTE NAME: ALIE CARUSO [facility] #: [id number] UNIT #: [id number] ROOM: 427 DOCTOR: BERNABE SANDHU MD,CARLOZ BIRTHDATE: [birth year] DOS: 02/27/2017 SUBJECTIVE: He has been noted comfortable sitting on the chair. The patient denies symptoms of chest pain or hemoptysis. Shortness of breath continued to resolve. He was still noted with mild edema of the lower extremity. The patient has been managed by the print room worker for acute kidney injury. OBJECTIVE: VITAL SIGNS: Which were recorded for the patient shows the temperature was recorded as normal. The respiratory rate of the patient recorded as 18 this morning, heart rate 61, blood pressure 120/59. Intake for the patient was noted as 1620/1550 mL. Pulse oxygen saturation on room air was 96% saturation. HEENT: Chronic obesity. NECK: Supple, short and obese. CARDIOVASCULAR: S1, S2 audible. LUNGS: The patient noted moderate decreased breath sounds in the lungs bilaterally. There were no crackles. ABDOMEN: Soft and obese. EXTREMITIES: Mild edema. LABORATORY DATA: The patient's CMP today, BUN 32, creatinine 3.15. CBC: Mild anemia, otherwise normal. IMPRESSION: Stable respiratory status with acute kidney injury superimposed on chronic kidney disease. Noted partial improvement in kidney function yesterday. Left-sided thoracentesis. Pleural fluid removal. Transudative effusion as well as lymphadenopathy noted in the left chest and will require further assessment. PLAN OF MANAGEMENT: No changes in the plan for this patient. Continue current therapy as previously in progress. Continue to monitor kidney function. Respiratory symptoms will be continued to monitored. CARLOZ KIDD MD CM:PNTRANS 1342 0455 CARLOZ SANDHU MD 02/28/17 0453 interface
--- NOTE | ~2017-02-21 | PR ---
[place], [place] PROGRESS NOTE NAME: ALIE CARUSO [facility] #: [id number] UNIT #: [id number] ROOM: 427 DOCTOR: MAU PENNY MD BIRTHDATE: [birth year] DOS: SUBJECTIVE: The patient has been admitted to hospital with his pneumonia and with ASHD, hypertension, congestive heart failure and diabetes mellitus. The patient is gradually feeling better. He denies any chest pain, no difficulty in breathing, no nausea, no vomiting. LABORATORY DATA: His CBC today showed hypochromic anemia with hemoglobin 9.6, hematocrit 29.9 and his comprehensive metabolic profile showed glucose 168, BUN 33, creatinine 3.15. GFR 20 and also having calcium 7.6 which is low and low protein and albumin also. OBJECTIVE: VITAL SIGNS: His blood pressure today 130/56, pulse 65, respirations 20, temperature is 98.5. HEART: Regular. CHEST: Having few rhonchi. No crepitation. ABDOMEN: Soft, having some edema of leg. The patient is gradually improving. MAU PENNY MD CM:PNTRANS [id number] MAU PENNY MD 02/27/17 1611 interface
--- NOTE | ~2017-02-21 | CON ---
[place], [place] REPORT OF CONSULTATION NAME: ALIE CARUSO UNIT #: [id number] ROOM: 427 DOCTOR: ELANA ACE MD BIRTHDATE: [birth year] DOS: 02/22/2017 HISTORY OF PRESENT ILLNESS: The patient is a 72-year-old gentleman presently admitted to [facility] under care of Dr. Delbert Garcia for acute over chronic diastolic type congestive heart failure and left pleural effusion with suspicion for multifocal pneumonia with sepsis. The patient also has diabetic nephropathy and chronic kidney disease and some worsening of kidney function and being followed by Dr. De Souza, the cigarette examiner. The patient with severe protein calorie malnutrition and advanced adult failure to thrive. Multiple admissions to [facility], about 5 times within the last 1 year since last January 2016. Uncontrolled type 2 diabetes mellitus. The patient with poor insight into medical problems and diabetic gastroparesis with complains of stomach pains and nausea, which is recurrent and chronic. The patient with advanced COPD and history of nicotine smoke dependence. I had a detailed discussion with the patient regarding patient being maximized on medical treatment and being followed by multiple specialists for his problems including Cardiology, Pulmonary, Nephrology and his primary care physician. The patient thinks that his condition can be fixed by adjusting his medications. Persistent shortness of breath, stomach pain, nausea, generalized weakness and adult failure to thrive. REVIEW OF SYSTEMS: LUNGS: Increasing shortness of breath. GASTROINTESTINAL: Chronic nausea and vomiting. CARDIOVASCULAR: No chest pains or palpitations. FAMILY HISTORY: Noncontributory. SOCIAL HISTORY: History of nicotine smoke dependent. Denies any alcohol or drug abuse, but he has been reported to drink 4 glasses of vodka daily and he is a former smoker for more than 31 years, 1 to 1-1/2 pack of cigarettes a day. He stopped in 1993. MEDICATIONS: The patient is presently on IV Bumex, Xarelto, allopurinol, aspirin, omeprazole, clonidine, metoprolol, terazosin, hydralazine, potassium, Lipitor, Singulair, lisinopril, trazodone, linezolid, Zofran, Travatan. ALLERGIES: No known drug allergies. PHYSICAL EXAMINATION: GENERAL: Alert, oriented x 3, poor historian, obese, in no visible distress. VITAL SIGNS: Blood pressure 129/70, heart rate of 63 beats per minute, [place], [place] REPORT OF CONSULTATION NAME: ALIE CARUSO UNIT #: [id number] ROOM: 427 DOCTOR: ELANA ACE MD BIRTHDATE: [birth year] breathing 20 times per minute, temperature 98 degrees Fahrenheit. HEENT AND NECK: Extraocular movements are intact. Sclerae are anicteric. Oral mucosa is moist and clean. No obvious facial weakness. Neck is supple without any lymphadenopathy. No thyromegaly. No JVD. No carotid arterial bruits. LUNGS: Show decreased breath sounds at lung bases and lungs show expiratory wheezing all over, scattered. CARDIOVASCULAR SYSTEM: Heart rate is regular in rate and rhythm. S1 and S2 normally audible. No significant murmur or any other abnormal cardiac sounds. ABDOMEN: Soft, nontender. No obvious organomegaly. Bowel sounds are present. No obvious herniation. EXTREMITIES: The patient with 1-2+ leg and pedal edema bilaterally. CENTRAL NERVOUS SYSTEM: Alert and oriented x 3. Cranial nerves II-XII are intact. Speech is normal. The patient is able to move all extremities. Normal muscle strength. Deep tendon reflexes are equal on both sides. Plantars were downgoing. IMPRESSION: 1. The patient with generalized weakness, adult failure to thrive and 5 admissions during last 1 year, now presents with diastolic type congestive heart failure and left-sided pleural effusion with acute over chronic kidney disease and diabetic nephropathy. 2. Urinary tract infection with vancomycin-resistant Enterococcus. 3. Uncontrolled diabetes mellitus. 4. Exacerbation of chronic obstructive pulmonary disease and acute over chronic respiratory failure. 5. The patient is maximized on treatment for congestive heart failure and his kidney function has slightly worsened with diuresis with IV Bumex. 6. Generalized adult failure to thrive and chronic long-term uncontrolled type 2 diabetes mellitus, with poor compliance with treatment. 7. I had detailed discussion with the patient regarding code status and his other options to treatment including staying home with hospice and avoiding recurrent admissions to the hospital for similar issues including congestive heart failure and kidney failure. The patient has been of an opinion that his medications have not been adjusted enough and that his heart failure and all his medical issues can be controlled with medication adjustment and better treatment. I had a detailed discussion with the patient regarding that his medication and treatment has been maximized not only by Dr. Garcia, but also consultants like firer diesel locomotive, cigarette examiner and tractor drill operator and the treatment has been unsuccessful in stabilizing his condition. The patient completely understands that he has an option to decide on staying on comfort care only and palliative and hospice care can help him with this. 8. Advanced severe protein calorie malnutrition related to his multiple medical issues and patient has a poor long-term prognosis despite of maximal medical treatment. I will suggest that the subject should be comfort care only should be approached with the patient with caution on different occasions and then he may realize that he has been adequately treated medically and that he does have options of refusing acute care at the hospital and he does have other options of being just kept comfortable. 9. Poor compliance with treatment, uncontrolled diabetes for long-term, which has resulted in diabetic nephropathy and other issues and diabetic [place], [place] REPORT OF CONSULTATION NAME: ALIE CARUSO UNIT #: [id number] ROOM: 427 DOCTOR: ELANA ACE MD BIRTHDATE: [birth year] gastroparesis. 10. I recommend that present acute care to be continued until the patient decides otherwise and all the consultants and primary care physician to bring up the issue of him being maximized on medical treatment at this time and to discuss treatment options with him including his option to opt for hospice care. Dr. Patrick Garcia, thank you for asking me to see this patient. I will follow along with you on as needed basis. ELANA ACE MD CM:CONSTR:REPORT OF CONSULTATION 16 02/22/17 2322 interface
--- NOTE | ~2017-02-21 | PR ---
[place], [place] PROGRESS NOTE NAME: ALIE CARUSO UNIT #: [id number] ROOM: 427 DOCTOR: BERNABE SANDHU MD,CARLOZ BIRTHDATE: [birth year] DOS: 02/26/2017 SUBJECTIVE: The patient has been noted comfortable at this time, resting comfortably on his bed. ____ noted symptoms of acute shortness of breath, chest pain. OBJECTIVE: VITAL SIGNS: Normal temperature, respiratory rate 18, heart rate 69, blood pressure 161/73 this morning recorded, pulse oxygen saturation on room air 93% saturation recorded. HEENT: No acute change. NECK: Supple. CARDIOVASCULAR: S1, S2 is audible. LUNGS: Noted decreased breath sounds in the lower portion of the lungs bilaterally. ABDOMEN: Soft, obese. EXTREMITIES: Mild edema. LABORATORY DATA: Mild anemia, otherwise normal. BMP of the patient, BUN 31, creatinine 3.1. IMPRESSION: Progressive and gradual increase in acute kidney injury of the patient noted history of chronic kidney disease, left pleural fluid transudative, status post thoracentesis with lymphadenopathy in the left mediastinum as well. PLAN AND MANAGEMENT: No changes in the plan of therapy at this time. Continuation of the current plan of therapy from the pulmonary point. Continue to monitor and manage the acute kidney injury superimposed chronic kidney disease per Nephrology services. CARLOZ KIDD MD CM:PNTRANS 1114 42 CARLOZ SANDHU MD 02/26/171940 interface
--- NOTE | ~2017-02-21 | PR ---
[place], [place] PROGRESS NOTE NAME: ALIE CARUSO UNIT #: [id number] ROOM: 427 DOCTOR: BERNABE SANDHU MD,CARLOZ BIRTHDATE: [birth year] DOS: 02/24/2017 SUBJECTIVE: He has been noted comfortable at this time. Remains off Xarelto. The patient was planned for thoracentesis to be done today. He has not been noted any symptoms of chest pain, coughing or any sputum expectoration. OBJECTIVE: VITAL SIGNS: Recorded and showed the temperature noted as normal. The respiratory rate recorded as as 20. Heart rate 66, blood pressure 130/52. The pulse oxygen saturation recorded on room air 95% saturation. Other 92% saturation. HEENT: Chronic obesity. NECK: Supple. CARDIOVASCULAR: S1, S2 audible. LUNGS: The patient noted decreased breath sounds in the left lung base. There is no wheezing or crackles. ABDOMEN: Soft, nontender. LABORATORY DATA: CMP: BUN 24, creatinine 2.98, CO2 33. CBC this morning anemia noted mild, otherwise, normal WBC and platelet count. Anti-Kary-A antibody was noted negative. IMPRESSION: Recurrent left pleural fluid at this time. The etiology is unclear. The previous pleural fluid, which was removed from the left pleural space in 06/2016 was noted as a transudative effusion. Culture of the sputum noted as normal milton. IMPRESSION: 1. Nodular density in the lungs were noted with increased and recurrence of the left pleural fluid previously noted transudative effusion in 06/2016. 2. Progressive acute kidney injury and chronic kidney disease as well. 3. Metabolic alkalosis, most likely related to diuretic therapy. 4. Possibility of malignancy left thorax. The patient has been considered to require further assessment in future. PLAN OF TREATMENT: The ultrasound of the chest was performed. There was significant enough fluid noted in the left pleural space which would be amenable for safe thoracentesis. Thoracentesis will be done today. The patient was kept off the anticoagulation, Xarelto in the last 24 hours. No changes in the major treatment at this time. Continue the patient's current therapy as in progress. Thoracentesis would be done today. Any changes and modification treatment necessary after thoracentesis would be ordered accordingly. [place], [place] PROGRESS NOTE NAME: ALIE CARUSO UNIT #: [id number] ROOM: [facility] DOCTOR: CARLOZ ARGUETA MD BIRTHDATE: [birth year] CARLOZ KIDD MD CM:PNSORAIDA [id number] CARLOZ SANDHU MD 02/25/17 0028 interface
--- NOTE | ~2017-02-21 | PR ---
[place], [place] PROGRESS NOTE NAME: ALIE CARUSO [facility] #: [id number] UNIT #: [id number] ROOM: 427 DOCTOR: BERNABE SANDHU MD,CARLOZ BIRTHDATE: [birth year] DOS: 02/23/2017 SUBJECTIVE: He has been noted comfortable at this time. The patient was still noted to have symptoms of shortness of breath. The shortness of breath has been noted without any worsening, partially decreased from yesterday. The cough has been noted intermittent without any sputum expectoration. Denies symptoms of hemoptysis. OBJECTIVE: VITAL SIGNS: Low-grade fever noted as 99.4 degree Fahrenheit to normal temperature, respiratory rate 20, heart rate 73, blood pressure 152/74-160/72. Intake for the patient 1200 and output 1100 mL. Pulse oxygen saturation on room air 93% saturation. HEENT: Chronic obesity. NECK: Supple. CARDIOVASCULAR: S1, S2 is audible. LUNGS: Noted without any wheeze or crackles at the present time. The breaths are noted decreased in the left lung base. ABDOMEN: Soft and obese. LABORATORY DATA: CMP of the patient that were done 02/23/2017 shows BUN 22, creatinine 2.77, glucose 63. Albumin 1.9. CBC: WBC count was noted normal, hemoglobin 10.3, hematocrit 31.8 and platelet count 172,000. Culture of the sputum for this patient was noted as normal milton; preliminary findings culture results were pending. Echocardiogram was completed yesterday, which has been assessed by Dr. Li and reported as findings of normal left ventricular ejection fraction without any major abnormality described. LVH was reported. IMPRESSION: The patient who has been currently noted with acute respiratory symptoms, shortness of breath, left-sided pleural fluid, progressive acute kidney injury and possible malignancy on the left side cannot be completely excluded. The patient was also suspected with possibility of acute pneumonia, which has been treated. PLAN OF MANAGEMENT: Discontinuation of Xarelto for this patient for today. Thoracentesis assessment with ultrasound tomorrow morning. In the meantime, continue patient's current therapy, plan and management and care. The patient is already being assessed and managed by the Nephrology services for acute kidney injury with history of chronic kidney disease. Creatinine was noted gradually to increase. Oxygen supplementation to maintain a saturation of 92% or greater. Other supportive therapy, plan of management and care. [place], [place] PROGRESS NOTE NAME: ALIE CARUSO UNIT #: [id number] ROOM: 427 DOCTOR: BERNABE SANDHU MD,CARLOZ BIRTHDATE: [birth year] CARLOZ KIDD MD CM:SHANICE [phone] CARLOZ SANDHU MD 02/24/17 0140 interface
--- NOTE | ~2017-02-21 | CON ---
[place], [place] REPORT OF CONSULTATION NAME: [facility]IE [id number] UNIT #: [id number] ROOM: 427 DOCTOR: MAYRA CANOEVELIA BIRTHDATE: [birth year] DOS: 02/22/2017 I am seeing this patient on behalf of Dr. Li. The patient with a known history of diastolic heart failure, hypertension, diabetes mellitus. The patient was having significant shortness of breath for quite sometime, recently got worse and came to the Emergency Room. He was sent to the hospital as a direct admission by Dr. De Souza, the company laundry worker. Blood pressure was severely elevated in 200s-230s, also patient had a thoracentesis on 06/28/2016, which was basically normal at that time. Right now, he is given 1 dose of IV Bumex and he is breathing somewhat better. He denies any chest discomfort. He had a stress test done by Dr. Li a year ago and was reported normal. PAST MEDICAL HISTORY: Significant for COPD, ____, DVT, hypertension, diastolic heart failure, last ejection fraction of 55%, morbid obesity, type 2 diabetes. SURGICAL HISTORY: Prostate surgery, tonsillectomy, adenoidectomy, colonoscopy. SOCIAL HISTORY: Alcohol abuse, 4 glasses of vodka daily, former smoker. Denies any drug abuse. FAMILY HISTORY: Positive for coronary artery disease. ALLERGIES: None. HOME MEDICATIONS: He is on Bumex 2 mg p.o. b.i.d., clonidine, insulin, lisinopril, metoprolol, omeprazole, rivaroxaban. REVIEW OF SYSTEMS: CONSTITUTIONAL: No fever, no chills. HEENT: No visual disturbances or hearing problems. CARDIOVASCULAR: As described in HPI. RESPIRATORY: As per HPI. ABDOMEN: Distention is present. EXTREMITIES: Swelling is present. ENDOCRINE: Intact. PHYSICAL EXAMINATION: VITAL SIGNS: Blood pressure is 180/100, he is in sinus rhythm to sinus tachycardia. HEENT: Elevated JVD. LUNGS: Diminished air entry bilaterally. Few bilateral rales. HEART: Sounds are regular with an S4. ABDOMEN: Obese. EXTREMITIES: 2+ edema. NEUROLOGIC: Stable. LABORATORY DATA: Sodium 140, potassium 3.4, creatinine is 2.2. CPK-MB and troponin is negative. Troponin is 0.089. White count of 12.6, hemoglobin and hematocrit within normal limits. Chest x-ray showed pleural effusion with atelectasis, large left pleural effusion. [place], [place] REPORT OF CONSULTATION NAME: ALIE CARUSO UNIT #: [id number] ROOM: 427 DOCTOR: EVELIA NUNEZ MD BIRTHDATE: [birth year] IMPRESSION: Acute diastolic heart failure, pleural effusion of the left, significantly elevated BNP secondary to diastolic heart failure, renal insufficiency, lymphopenia, hypokalemia, severe hypertension. RECOMMENDATIONS: Continue beta blockers, CHUY inhibitors, lipid lowering agents. Monitor the creatinine very closely because the patient is on lisinopril, strict I's and O's change to IV diuretics. We will review the echocardiogram, probably 1500 mL fluid restriction. Nephrology consultation and I will follow up with you. EVELIA NUNEZ MD CM:CONSTR:REPORT OF CONSULTATION 7 02/22/17901 interface
[2017-02-21 10:50] VITALS: BP 162/97
--- NOTE | 2017-02-21 10:50 | NUR ---
A 72, admitted to , under the services of NGHIA Ford MD with a diagnosis of PNEUMONIA, HTN, SOB. Chief complaint is DIRECT ADMIT. Patient arrived via ambulatory from [place]. Monitor applied. Initial assessment completed. Vital signs taken and recorded. NGHIA FORD MD notified of admission to the unit. Orders received. See assessment for past medical history, medications and allergies. Patient and/or family oriented to unit. [facility] visitation policy reviewed. Clothing/patient valuable form completed. MANAV SMITH
--- NOTE | 2017-02-21 11:28 | NUR ---
SPOKE TO DR MALLORY FOR ADMIT ORDERS. PLEASE SEE NEW ORDERS.
[2017-02-21] MEDS ORDERED: Lac-Hydrin 12%340 GM T (11:37)
[2017-02-21] MEDS ORDERED: METOPROLOL TAR100 M1 PO (11:39)
[2017-02-21] MEDS ORDERED: FLONASE ALLERG9.9 ML NAS (11:40)
[2017-02-21] MEDS ORDERED: GENERLAC10 GM/15 M PO (11:43)
[2017-02-21] MEDS ORDERED: BUMETANIDE2 MG PO (11:44)
--- NOTE | 2017-02-21 11:47 | NUR ---
MED REC UPDATED BY LIST FAXED FROM CHRIS AT [facility]CTORS OFFICE.
[2017-02-21 12:00] VITALS: BP 187/82
[2017-02-21 12:25] LABS: HEMATOCRIT 38.8 % (42.0-52.0); HEMOGLOBIN 12.9 g/dl (14.0-18.0); MEAN CELL VOLUME 95.8 fl (80.0-94.0); MEAN CORPUSCULAR HGB 31.9 pg (27.0-31.0); MEAN CORPUSCULAR HGB CONC 33.2 g/dl (33.0-37.0); MEAN PLATELET VOLUME 10.2 fl (9.6-12.3); PLATELET COUNT AUTOMATED 189 10*3/uL (130-400); RED BLOOD COUNT 4.05 10*6/uL (4.50-5.90); RED CELL DISTRI WIDTH 13.6 % (0-14.5); WHITE BLOOD COUNT 12.6 10*3/uL (4.8-10.8)
[2017-02-21 12:30] VITALS: BP 168/80
[2017-02-21 12:33] LABS: CKMB 1.1 ng/ml (0.5-3.6)
[2017-02-21 12:34] LABS: ALBUMIN 2.4 gm/dl (3.1-4.5); CREATININE 2.29 mg/dL (0.70-1.30); POTASSIUM 3.4 mmol/L (3.5-5.1); TOTAL PROTEIN 6.9 gm/dL (6.4-8.2); TROPONIN I 0.097 ng/ml (<0.045)
--- NOTE | 2017-02-21 12:37 | NUR ---
DR. TELLES NOTIFIED OF PATIENT'S CRITICAL TROPONIN LEVEL. NO NEW ORDERS RECIEVED.
[2017-02-21 12:55] LABS: PLATELET SUFFICIENCY NORMAL (NORMAL); TOTAL CELLS COUNTED 100 #CELLS
--- NOTE | 2017-02-21 14:51 | NUR ---
OFFICE STAFF WAS NOTIFIED OF DR. PEARSON CONSULT. RESPONSE OF NOTIFICATION WAS OK I WILL PASS THIS ALONG TO DR PEARSON FOR YOU. MANAV SMITH
[2017-02-21 15:37] LABS: CKMB 1.2 ng/ml (0.5-3.6)
[2017-02-21 15:39] LABS: TROPONIN I 0.089 ng/ml (<0.045)
--- NOTE | 2017-02-21 15:39 | NUR ---
TROP 0.089 DR TELLES NOTIFIED.
[2017-02-21 16:00] VITALS: BP 180/100
--- NOTE | 2017-02-21 16:24 | NUR ---
SPOKE TO DR PEARSON. NO NEW ORDERS RECEIVED.
--- NOTE | 2017-02-21 16:58 | NUR ---
SPOKE TO DR TELLES REGARDING BP OF 80/100. OK TO START HIS LISINOPRIL NOW SINCE HE HASN'T HAD TODAY. AND TO RECHECK IN ONE HOUR. IF IT DOES NOT COME DOWN LET DR PEARSON KNOW. WILL CONT TO MONITOR.
[2017-02-21 17:12] LABS: BILIRUBIN NEGATIVE (NEGATIVE); BLOOD 1+ (NEGATIVE); CLARITY CLEAR (CLEAR); COLOR YELLOW (YELLOW); GLUCOSE 1+ (NEGATIVE); KETONE NEGATIVE (NEGATIVE); LEUKO ESTERASE NEGATIVE (NEGATIVE); NITRITE NEGATIVE (NEGATIVE); PH 6.5 (5.0-9.0); UROBILINOGEN 0.2 E.U./dl (0.2-1.0)
[2017-02-21 17:18] LABS: BACTERIA 3+
[2017-02-21 17:21] LABS: EPITHELIAL CELLS 31-40; RBC 41-50 rbc/hpf (0-2)
--- NOTE | 2017-02-21 17:51 | NUR ---
DR TELLES NOTIFIED OF KUB RESULTS. NO NEW ORDERS.
--- NOTE | 2017-02-21 18:00 | NUR ---
PHYSICIAN WAS NOTIFIED OF DR. BERNABE RODRIGUEZ. RESPONSE OF NOTIFICATION WAS OK . MANAV SMITH
--- NOTE | 2017-02-21 18:07 | NUR ---
BP RECHECK 190/90 MANUAL. CALL PLACED TO DR PEARSON. AWAITING RETURN PHONE CALL.
--- NOTE | 2017-02-21 18:23 | NUR ---
SPOKE TO DR PEARSON REGARDING BP., NEW ORDER TO INCREASE CLONIDINE TO 0.2MG AND TO ADD HYDRALAZINE 25MG TID AND START NOW.
[2017-02-21 18:34] LABS: ACT PARTIAL THROMBO TIME 25.4 SECONDS (20.8-31.5)
[2017-02-21 18:40] LABS: CKMB 1.6 ng/ml (0.5-3.6)
[2017-02-21 18:44] LABS: TROPONIN I 0.118 ng/ml (<0.045)
[2017-02-21 18:46] LABS: VITAMIN D, 25-HYDROXY 31.8 ng/mL (30-100)
--- NOTE | 2017-02-21 18:49 | NUR ---
CRITICAL TROPONIN CALLED TO DR. TELLES.
[2017-02-21 18:53] LABS: THYROID STIM HORMONE (HS) 0.336 uIU/ml (0.358-4.75)
--- NOTE | 2017-02-21 19:34 | NUR ---
PHYSICIAN WAS NOTIFIED OF DR. JENSNE CONSULT. RESPONSE OF NOTIFICATION WAS OK DR NUNEZ WILL SEE HIM IN THE MORNING. MANAV SMITH
[2017-02-21 20:03] VITALS: BP 164/76
--- NOTE | 2017-02-21 22:00 | NUR ---
MEDICATED WITH DESYREL PER PRN ORDER FOR C/O INSOMNIA.
[2017-02-22] VITALS: BP 106/53
[2017-02-22 06:15] LABS: BASO % 0.2 % (0.0-1.0); EOS # 0.1 10*3/uL (0.0-0.4); EOS % 1.2 % (1.0-4.0); LYMPH # 0.9 10*3/uL (1.3-4.4); LYMPH % 9.8 % (27.0-41.0); MEAN CELL VOLUME 96.6 fl (80.0-94.0); MEAN CORPUSCULAR HGB 31.5 pg (27.0-31.0); MEAN CORPUSCULAR HGB CONC 32.6 g/dl (33.0-37.0); MEAN PLATELET VOLUME 10.1 fl (9.6-12.3); MONO # 0.7 10*3/uL (0.1-1.0); MONO % 7.3 % (3.0-9.0); NEUT # 7.6 10*3/uL (2.3-7.9); NEUT % 80.9 % (47.0-73.0); PLATELET COUNT AUTOMATED 161 10*3/uL (130-400); RED BLOOD COUNT 3.24 10*6/uL (4.50-5.90); RED CELL DISTRI WIDTH 13.6 % (0-14.5); WHITE BLOOD COUNT 9.4 10*3/uL (4.8-10.8)
[2017-02-22 06:17] LABS: HEMATOCRIT 31.3 % (42.0-52.0); HEMOGLOBIN 10.2 g/dl (14.0-18.0)
[2017-02-22 06:41] LABS: ALBUMIN 1.9 gm/dl (3.1-4.5); CREATININE 2.46 mg/dL (0.70-1.30); POTASSIUM 3.5 mmol/L (3.5-5.1); TOTAL PROTEIN 5.2 gm/dL (6.4-8.2)
--- NOTE | 2017-02-22 07:57 | NUR ---
IN BED RESTING QUIETLY. AWAKENS TO VOICE AND ORIENTED X3, NO S/S OF DISTRESS. DR COLEMAN ON FLOOR AND WILL SEE PT THIS AM. SEE ASSESS. WILL CONT TO MONITOR. CALL LIGHT IN REACH.
[2017-02-22 08:00] VITALS: BP 122/74
--- NOTE | 2017-02-22 08:05 | NUR ---
PER DR COLEMAN CHANGE PO BUMEX TO IV.
--- NOTE | 2017-02-22 08:15 | NUR ---
Proof Sorter in to talk to patient. Patient states lives at HOME with HIS GRANDDAUGHTER. There are 15 steps in the home. Physician: DR MALLORY [facility]: [facility] Home health services: NONE Patient's level of ADLs: INDEPENDENT Patient has working utilities: YES DME: [facility] Follow-up physician's appointment after d/c: PREFERS TO MAKE HIS OWN APPT Does patient want to access PORTAL?: Discharge plan HOME. KEYLA SEGAL
--- NOTE | 2017-02-22 11:44 | NUR ---
PT. INSTRUCTED ON FLUTTER DEVICE, RETURNED DEMONSTRATION WITHOUT ISSUE, INSTRUCTED TO USE Q2HRS
--- NOTE | 2017-02-22 11:55 | NUR ---
DR MALLORY MESSAGED THAT PALLIATIVE CARE NURSE FEELS PT IS APPROPRIATE FOR PALLIATIVE CARE AT HOME IF HE WANTS TO ORDER IT.
[2017-02-22 12:00] VITALS: BP 152/72
--- NOTE | 2017-02-22 12:50 | NUR ---
OFFICE STAFF WAS NOTIFIED OF DR. AP HERNANDEZ CONSULT. RESPONSE OF NOTIFICATION WAS OK THANK YOU. FACE SHEET, ORDER AND H&P FAXED.. MANAV SMITH
[2017-02-22 16:00] VITALS: BP 129/70
--- NOTE | 2017-02-22 16:51 | NUR ---
ERIN NEVER DOCUMENTED I&O OR NOON VITALS. I FOUND HER PAPERS IN THE GARBAGE AND DOCUMENTED WHAT SHE HAD WRITTEN DOWN.
[2017-02-22 20:00] VITALS: BP 147/68
--- NOTE | 2017-02-22 21:00 | NUR ---
PATIENT REFUSED BGM.
[2017-02-23] VITALS: BP 160/72
[2017-02-23 06:51] LABS: BASO % 0.2 % (0.0-1.0); EOS # 0.1 10*3/uL (0.0-0.4); EOS % 1.4 % (1.0-4.0); HEMATOCRIT 31.8 % (42.0-52.0); HEMOGLOBIN 10.3 g/dl (14.0-18.0); LYMPH # 0.9 10*3/uL (1.3-4.4); LYMPH % 8.6 % (27.0-41.0); MEAN CORPUSCULAR HGB 31.4 pg (27.0-31.0); MEAN CORPUSCULAR HGB CONC 32.4 g/dl (33.0-37.0); MEAN PLATELET VOLUME 10.2 fl (9.6-12.3); MONO # 0.8 10*3/uL (0.1-1.0); MONO % 8.1 % (3.0-9.0); NEUT # 8.3 10*3/uL (2.3-7.9); NEUT % 81.4 % (47.0-73.0); PLATELET COUNT AUTOMATED 172 10*3/uL (130-400); RED BLOOD COUNT 3.28 10*6/uL (4.50-5.90); RED CELL DISTRI WIDTH 13.7 % (0-14.5); WHITE BLOOD COUNT 10.2 10*3/uL (4.8-10.8)
[2017-02-23 07:05] LABS: RHEUMATOID ARTHRITIS FACTOR 10.2 IU/mL (0.0-13.9)
[2017-02-23 07:45] LABS: ALBUMIN 1.9 gm/dl (3.1-4.5); CREATININE 2.77 mg/dL (0.70-1.30); POTASSIUM 3.6 mmol/L (3.5-5.1); TOTAL PROTEIN 5.7 gm/dL (6.4-8.2)
[2017-02-23 08:00] VITALS: BP 152/74
[2017-02-23 10:04] LABS: IMMUNOGLOBULIN IgE 002170 23 IU/mL (0-100)
[2017-02-23 12:00] VITALS: BP 150/67
--- NOTE | 2017-02-23 13:50 | NUR ---
DR. TELLES NOTIFIED OF PATIENT'S URINE BEING POSITIVE FOR VRE.
[2017-02-23 16:00] VITALS: BP 131/61
[2017-02-23 16:11] LABS: ALDOLASE 002030 7.8 U/L (3.3-10.3); ANGIOTENSIN-CONVERTING ENZYME 5 U/L (14-82)
[2017-02-23 17:06] LABS: ATYPICAL PANCA <1:20 titer (Neg:<1:20); CYTOPLASMIC (C-ANCA) <1:20 titer (Neg:<1:20); PERINUCLEAR (P-ANCA) <1:20 titer (Neg:<1:20)
[2017-02-23 20:00] VITALS: BP 134/64
[2017-02-24] VITALS: BP 160/64
[2017-02-24 00:03] LABS: IGG SUBCLASS 1 488 mg/dL (248-810); IGG SUBCLASS 2 273 mg/dL (130-555); IGG SUBCLASS 3 254 mg/dL (15-102); IGG SUBCLASS 4 105 mg/dL (2-96)
[2017-02-24 05:55] LABS: BASO % 0.3 % (0.0-1.0); EOS # 0.1 10*3/uL (0.0-0.4); EOS % 1.3 % (1.0-4.0); HEMATOCRIT 31.6 % (42.0-52.0); HEMOGLOBIN 10.2 g/dl (14.0-18.0); LYMPH # 1.1 10*3/uL (1.3-4.4); LYMPH % 12.2 % (27.0-41.0); MEAN CORPUSCULAR HGB CONC 32.3 g/dl (33.0-37.0); MEAN PLATELET VOLUME 10.1 fl (9.6-12.3); MONO # 0.8 10*3/uL (0.1-1.0); MONO % 8.6 % (3.0-9.0); NEUT % 77.4 % (47.0-73.0); PLATELET COUNT AUTOMATED 182 10*3/uL (130-400); RED BLOOD COUNT 3.29 10*6/uL (4.50-5.90); RED CELL DISTRI WIDTH 13.6 % (0-14.5); WHITE BLOOD COUNT 9.1 10*3/uL (4.8-10.8)
[2017-02-24 06:23] LABS: ALBUMIN 1.8 gm/dl (3.1-4.5); CREATININE 2.98 mg/dL (0.70-1.30); POTASSIUM 3.6 mmol/L (3.5-5.1); TOTAL PROTEIN 5.4 gm/dL (6.4-8.2)
[2017-02-24 08:00] VITALS: BP 130/52
--- NOTE | 2017-02-24 09:30 | NUR ---
DR. KIDD PREFORMED THORACENTESIS AT BEDSIDE. TO LEFT LUNG. DRESSING APPLIED OVER SITE PER DR. KIDD. PT TOLERATED PROCECURE FAIR. COUGH NOTED POST THORACENTESIS/PAIN TO LEFT SIDE, DR. KIDD AWARE. FLUID COLLECTED AND SENT TO LAB FOR TESTING. FLUID CLEAR YELLOW APPROX. 1200CC
[2017-02-24 10:21] LABS: BODY FLUID WBC 181 /uL
--- NOTE | 2017-02-24 10:31 | NUR ---
SPOKE TO DR. NUNEZ. HE IS OKAY WITH DECREASING BUMEX PER PRIMARY TEAM. HE STATED DR. JENSEN WILL SEE THE PATIENT TODAY.
[2017-02-24 11:21] LABS: BF LYMPHOCYTES 6 %; BF MACROPHAGES 39 %; BF NEUTROPHILS 55 %
[2017-02-24 12:00] VITALS: BP 158/68
--- NOTE | 2017-02-24 15:15 | NUR ---
ASSUMED CARE OF PT AT THIS TIME, RESPS EASY AND NONLABORED WITH NO S/S OF DISTRESS CALL LIGHT WITH IN REACH
[2017-02-24 16:00] VITALS: BP 144/57
[2017-02-24 20:00] VITALS: BP 108/74
[2017-02-25] VITALS: BP 112/76
[2017-02-25 07:28] LABS: BASO % 0.1 % (0.0-1.0); EOS # 0.1 10*3/uL (0.0-0.4); HEMATOCRIT 30.6 % (42.0-52.0); LYMPH # 0.9 10*3/uL (1.3-4.4); LYMPH % 10.9 % (27.0-41.0); MEAN CELL VOLUME 96.2 fl (80.0-94.0); MEAN CORPUSCULAR HGB 31.4 pg (27.0-31.0); MEAN CORPUSCULAR HGB CONC 32.7 g/dl (33.0-37.0); MEAN PLATELET VOLUME 9.5 fl (9.6-12.3); MONO # 0.6 10*3/uL (0.1-1.0); NEUT # 6.7 10*3/uL (2.3-7.9); NEUT % 80.6 % (47.0-73.0); PLATELET COUNT AUTOMATED 170 10*3/uL (130-400); RED BLOOD COUNT 3.18 10*6/uL (4.50-5.90); RED CELL DISTRI WIDTH 13.4 % (0-14.5); WHITE BLOOD COUNT 8.3 10*3/uL (4.8-10.8)
[2017-02-25 07:59] LABS: ALBUMIN 1.7 gm/dl (3.1-4.5); CREATININE 3.04 mg/dL (0.70-1.30); POTASSIUM 3.7 mmol/L (3.5-5.1); TOTAL PROTEIN 5.6 gm/dL (6.4-8.2)
[2017-02-25 08:00] VITALS: BP 138/59
[2017-02-25 11:31] VITALS: BP 157/50
[2017-02-25 16:00] VITALS: BP 122/49
[2017-02-26] VITALS: BP 132/54
[2017-02-26 06:22] LABS: BASO % 0.2 % (0.0-1.0); EOS # 0.1 10*3/uL (0.0-0.4); EOS % 1.6 % (1.0-4.0); HEMOGLOBIN 9.7 g/dl (14.0-18.0); LYMPH # 0.9 10*3/uL (1.3-4.4); LYMPH % 10.8 % (27.0-41.0); MEAN CELL VOLUME 94.6 fl (80.0-94.0); MEAN CORPUSCULAR HGB 30.6 pg (27.0-31.0); MEAN CORPUSCULAR HGB CONC 32.3 g/dl (33.0-37.0); MEAN PLATELET VOLUME 9.6 fl (9.6-12.3); MONO # 0.6 10*3/uL (0.1-1.0); MONO % 6.7 % (3.0-9.0); NEUT # 6.6 10*3/uL (2.3-7.9); NEUT % 80.3 % (47.0-73.0); PLATELET COUNT AUTOMATED 171 10*3/uL (130-400); RED BLOOD COUNT 3.17 10*6/uL (4.50-5.90); RED CELL DISTRI WIDTH 13.3 % (0-14.5); WHITE BLOOD COUNT 8.2 10*3/uL (4.8-10.8)
[2017-02-26 06:51] LABS: ALBUMIN 1.8 gm/dl (3.1-4.5); CREATININE 3.21 mg/dL (0.70-1.30); POTASSIUM 3.8 mmol/L (3.5-5.1); TOTAL PROTEIN 5.6 gm/dL (6.4-8.2)
[2017-02-26 08:00] VITALS: BP 161/73
[2017-02-26 16:00] VITALS: BP 156/59
[2017-02-26 20:00] VITALS: BP 110/47; BP 151/59
--- NOTE | 2017-02-26 22:00 | NUR ---
PATIENT MEDICATED WITH RESTORIL FOR C/O SLEEPLESSNESS. WILL MONITOR
[2017-02-27] VITALS: BP 134/52
--- NOTE | 2017-02-27 00:40 | NUR ---
PATIENT RESTING IN BED WITH NO S/S OF DISTRESS. RESPS EASY AND REGULAR. BED IN LOWEST POSITION, CALL LIGHT IN REACH
--- NOTE | 2017-02-27 03:37 | NUR ---
24 HR chart check completed.
[2017-02-27 04:00] VITALS: BP 132/55
[2017-02-27 06:03] LABS: BASO % 0.1 % (0.0-1.0); EOS # 0.1 10*3/uL (0.0-0.4); EOS % 1.9 % (1.0-4.0); HEMATOCRIT 29.2 % (42.0-52.0); HEMOGLOBIN 9.6 g/dl (14.0-18.0); LYMPH # 0.7 10*3/uL (1.3-4.4); LYMPH % 9.5 % (27.0-41.0); MEAN CELL VOLUME 96.4 fl (80.0-94.0); MEAN CORPUSCULAR HGB 31.7 pg (27.0-31.0); MEAN CORPUSCULAR HGB CONC 32.9 g/dl (33.0-37.0); MEAN PLATELET VOLUME 9.7 fl (9.6-12.3); MONO # 0.4 10*3/uL (0.1-1.0); MONO % 5.9 % (3.0-9.0); NEUT # 5.9 10*3/uL (2.3-7.9); NEUT % 81.9 % (47.0-73.0); PLATELET COUNT AUTOMATED 171 10*3/uL (130-400); RED BLOOD COUNT 3.03 10*6/uL (4.50-5.90); RED CELL DISTRI WIDTH 13.4 % (0-14.5); WHITE BLOOD COUNT 7.2 10*3/uL (4.8-10.8)
[2017-02-27 06:25] LABS: ALBUMIN 1.8 gm/dl (3.1-4.5); CREATININE 3.15 mg/dL (0.70-1.30); POTASSIUM 4.1 mmol/L (3.5-5.1); TOTAL PROTEIN 5.4 gm/dL (6.4-8.2)
[2017-02-27 08:00] VITALS: BP 130/56
[2017-02-27 12:00] VITALS: BP 120/59
[2017-02-27 16:00] VITALS: BP 146/59
--- NOTE | 2017-02-27 19:40 | NUR ---
PATIENT SITTING IN CHAIR AT BEDSIDE. NO NEEDS MADE. WATCHING TV. BED IN LOWEST POSITION, CALL LIGHT IN REACH
[2017-02-27 20:00] VITALS: BP 133/52
--- NOTE | 2017-02-27 21:50 | NUR ---
MEDICATED WITH PRN RESTORIL FOR ANXIOUSNESS
[2017-02-28] VITALS: BP 136/50
--- NOTE | 2017-02-28 01:36 | NUR ---
PATIENT RESTING IN BED WITH NO S/S OF DISTRESS. BED IN LOWEST POSITION, CALL LIGHT IN REACH
[2017-02-28 04:00] VITALS: BP 137/54
[2017-02-28 06:24] LABS: BASO % 0.3 % (0.0-1.0); EOS # 0.2 10*3/uL (0.0-0.4); EOS % 2.5 % (1.0-4.0); HEMATOCRIT 29.7 % (42.0-52.0); HEMOGLOBIN 9.5 g/dl (14.0-18.0); LYMPH # 0.9 10*3/uL (1.3-4.4); LYMPH % 13.3 % (27.0-41.0); MEAN CELL VOLUME 96.1 fl (80.0-94.0); MEAN CORPUSCULAR HGB 30.7 pg (27.0-31.0); MEAN PLATELET VOLUME 9.8 fl (9.6-12.3); MONO # 0.4 10*3/uL (0.1-1.0); MONO % 6.2 % (3.0-9.0); NEUT % 77.4 % (47.0-73.0); PLATELET COUNT AUTOMATED 165 10*3/uL (130-400); RED BLOOD COUNT 3.09 10*6/uL (4.50-5.90); RED CELL DISTRI WIDTH 13.2 % (0-14.5); WHITE BLOOD COUNT 6.5 10*3/uL (4.8-10.8)
[2017-02-28 06:48] LABS: ALBUMIN 1.8 gm/dl (3.1-4.5); CREATININE 3.23 mg/dL (0.70-1.30); TOTAL PROTEIN 5.7 gm/dL (6.4-8.2)
[2017-02-28 08:00] VITALS: BP 138/59
[2017-02-28 12:00] VITALS: BP 132/56
[2017-02-28] MEDS ORDERED: XARE15TA PO (14:54)
[2017-02-28] MEDS ORDERED: METOPROLOL TAR100 M1 PO (14:54)
[2017-02-28] MEDS ORDERED: APRESOLINE25 MG PO (14:54)
[2017-02-28] MEDS ORDERED: BUMETANIDE2 MG PO (14:54)
[2017-02-28] MEDS ORDERED: CLONIDINE HCL0.2 MG PO (14:54)
[2017-02-28 16:00] VITALS: BP 134/57
--- NOTE | 2017-02-28 17:21 | NUR ---
Discharge instructions reviewed with patient. Patient receptive and verbalizes understanding. Follow-up care understood. Written instructions given to patient. 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 iv d/c. dressing applied BONI REINOSO
--- NOTE | 2017-02-28 18:21 | NUR ---
PT LEFT FLOOR AT 1810 WITH FAMILY FOR DISCHARGE
== END 2017-02-28 18:10 | disposition home or self-care (01) | DRG 871 ==
LOC: 4E 10:37
PROVIDERS: Internal Medicine Critical Care Medicine; Internal Medicine Hospice and Palliative Medicine; ADMIT Internal Medicine
PROC: 0W9B3ZX Drainage of Left Pleural Cavity, Percutaneous Approach, Diagnostic (ICD-10-PCS; principal; 2017-02-24)
DX: A41.9 Sepsis, unspecified organism (principal); J18.9 Pneumonia, unspecified organism; J96.20 Acute and chronic respiratory failure, unspecified whether with hypoxia or hypercapnia; E43 Unspecified severe protein-calorie malnutrition; I50.33 Acute on chronic diastolic (congestive) heart failure; E87.3 Alkalosis; E11.22 Type 2 diabetes mellitus with diabetic chronic kidney disease; D68.59 Other primary thrombophilia; J90 Pleural effusion, not elsewhere classified; I82.621 Acute embolism and thrombosis of deep veins of right upper extremity; I13.0 Hypertensive heart and chronic kidney disease with heart failure and stage 1 through stage 4 chronic kidney disease, or unspecified chronic kidney disease; N18.4 Chronic kidney disease, stage 4 (severe); N39.0 Urinary tract infection, site not specified; J44.0 Chronic obstructive pulmonary disease with (acute) lower respiratory infection; N17.9 Acute kidney failure, unspecified; J44.1 Chronic obstructive pulmonary disease with (acute) exacerbation; K31.84 Gastroparesis; E11.43 Type 2 diabetes mellitus with diabetic autonomic (poly)neuropathy; E11.51 Type 2 diabetes mellitus with diabetic peripheral angiopathy without gangrene; E11.65 Type 2 diabetes mellitus with hyperglycemia; E66.01 Morbid (severe) obesity due to excess calories; R79.89 Other specified abnormal findings of blood chemistry; B95.2 Enterococcus as the cause of diseases classified elsewhere; D72.810 Lymphocytopenia; E87.6 Hypokalemia; R59.1 Generalized enlarged lymph nodes; N40.0 Benign prostatic hyperplasia without lower urinary tract symptoms; R91.8 Other nonspecific abnormal finding of lung field; E78.5 Hyperlipidemia, unspecified; E55.9 Vitamin D deficiency, unspecified; R62.7 Adult failure to thrive; K21.9 Gastro-esophageal reflux disease without esophagitis; M1A.9XX0 Chronic gout, unspecified, without tophus (tophi); G47.00 Insomnia, unspecified; D53.9 Nutritional anemia, unspecified; J30.2 Other seasonal allergic rhinitis; Z79.4 Long term (current) use of insulin; Z68.38 Body mass index [BMI] 38.0-38.9, adult; Z79.82 Long term (current) use of aspirin; Z79.899 Other long term (current) drug therapy; Z87.891 Personal history of nicotine dependence; Z83.6 Family history of other diseases of the respiratory system; Z82.49 Family history of ischemic heart disease and other diseases of the circulatory system; Z16.21 Resistance to vancomycin

== ENCOUNTER → 2017-03-22 | Outpatient (CLI) | payer OTHER ==
[~2017-03-22] MED LIST changes: +APRESOLINE25 MG PO; +CLONIDINE HCL0.2 MG PO; +FLONASE ALLERG9.9 ML NAS; +GENERLAC10 GM/15 M PO; +Lac-Hydrin 12%340 GM T; +METOPROLOL TAR100 M1 PO
[2017-03-22 15:10] LABS: CREATININE 2.56 mg/dL (0.70-1.30); POTASSIUM 3.7 mmol/L (3.5-5.1)
== END | disposition home or self-care (01) ==
LOC: LAB 14:11
PROVIDERS: Internal Medicine
DX: J90 Pleural effusion, not elsewhere classified (principal); I51.7 Cardiomegaly; R60.0 Localized edema; I10 Essential (primary) hypertension; E11.9 Type 2 diabetes mellitus without complications; Z87.891 Personal history of nicotine dependence

== ENCOUNTER → 2017-03-28 | Outpatient (CLI) | payer OTHER ==
[2017-03-28 11:11] LABS: CREATININE 2.14 mg/dL (0.70-1.30); POTASSIUM 3.9 mmol/L (3.5-5.1)
== END | disposition home or self-care (01) ==
LOC: LAB 10:28
PROVIDERS: Internal Medicine
DX: R60.0 Localized edema (principal)

== ENCOUNTER 2017-04-24 03:05 | Inpatient (IN) | payer OTHER ==
[~2017-04-24] VITALS: Ht 179 cm; Wt 119.4 kg
[2017-04-24] VITALS (10 sets, daily range): BP systolic 168–221; BP diastolic 71–110
--- NOTE | ~2017-04-24 | CON ---
[place], [place] REPORT OF CONSULTATION NAME: ALIE CARUSO UNIT #: [id number] ROOM: 507 DOCTOR: ALIE KRUEGER MD BIRTHDATE: [birth year] DOS: 04/25/2017 REASON FOR CONSULTATION: CHF. CLINICAL HISTORY: The patient is a 72-year-old patient, known to Dr. Li who is out of town hence cardiology was asked to see the patient. The patient is a 72-year-old gentleman with history of hypertension, chronic kidney disease, diabetes, COPD, and was admitted for "shakes" and he is found to have accelerated hypertension and was treated with hydralazine. He also had some shortness of breath as well as vomiting, which is the main reason he came to the Emergency Room. He presented to the hospital and he is anticipating transfer to the [facility] in [place]. Currently, he denies any chest pain. His breathing is much better. Edema is better. Nausea is also much better, but still having some abdominal pain in the mid abdomen he describes it as burning pain, but no chest pain, no palpitations, no dizziness, no syncope, no hemoptysis. No hematuria or dysuria. No headaches. No neurologic symptoms. At the time of examination, he was still complaining of occasional burning pain in the mid to lower abdomen intermittently. REVIEW OF SYSTEMS: Review of the 8 systems were negative except his mild shortness of breath and mid abdominal burning pain. PAST MEDICAL HISTORY: 1. Hypertension. 2. Chronic kidney disease. 3. COPD. 4. Non-morbid obesity. 5. Anemia. 6. Type 2 diabetes. 7. Chronic diastolic heart failure 8. History of right upper extremity DVT. 9. Gastroparesis. PAST SURGICAL HISTORY: History of prostate biopsy, tonsillectomy and colonoscopy. SOCIAL HISTORY: The patient does use alcohol mostly vodka, does not use illicit drugs. Remote tobacco use, quit in 1993. FAMILY HISTORY: Noncontributory. Father at age of 88 from pneumonia. Mother from myocardial infarction at age unknown. ALLERGIES: No known drug allergies. HOME MEDICATIONS: Reviewed. PHYSICAL EXAMINATION: VITAL SIGNS: Blood pressure 135/63, pulse 61, respiration was 18, weight 119 kilos, BMI 37. GENERAL: Alert, comfortable, in no acute distress. [place], [place] REPORT OF CONSULTATION NAME: ALIE CARUSO UNIT #: [id number] ROOM: 507 DOCTOR: ALIE KRUEGER MD BIRTHDATE: [birth year] HEENT: Pupils are round and equal. Tongue was moist and pharynx was clear. NECK: Supple. No distended neck veins. No carotid bruit. The patient had a central line in the right side of the neck. CHEST: Symmetrical, nontender. LUNGS: Few scattered rhonchi, but good air entry bilaterally except slightly diminished at the right base. HEART: Regular rhythm. No S3. Grade 1/6 systolic murmur. No palpable thrills. ABDOMEN: Benign, nontender. Bowel sounds are normal. EXTREMITIES: Showed trace to 1+ edema bilaterally. Distal pulses are fair. SKIN: Warm and dry. No cyanosis, no clubbing. NEUROLOGIC: The patient is alert, oriented. No focal neurologic deficit. REVIEW OF THE DIAGNOSTIC TESTS: EKG, rhythm strips, medications, and imaging studies reviewed. EKG showed normal sinus rhythm with no acute ST-T changes. Pertinent labs include hemoglobin 9.5 and creatinine 2.6, potassium 3.2. IMPRESSION: 1. Rsdvh-oj-ctijusy diastolic heart failure. 2. Accelerated hypertension, currently stable. 3. Anemia. 4. Chronic kidney disease. 5. Right upper extremity deep venous thrombosis. 6. Chronic obstructive pulmonary disease. 7. Diabetes type 2. RECOMMENDATIONS: 1. Continue his Lasix 80 mg b.i.d. 2. I will discontinue his IV fluids. 3. Continue his Xarelto for right upper extremity DVT. 4. If not done, I would recommend a 2D echo for LV function and valvular function. 5. I will turn his case to his primary supervisor intelligence analyst, Dr. Ferrer when he is in town. 6. The patient is anticipating transfer to [facility] in [place]. 7. There is no family at bedside at the time of examination. [place], [place] REPORT OF CONSULTATION NAME: ALIE CARUSO UNIT #: [id number] ROOM: 507 DOCTOR: ALIE KRUEGER MD BIRTHDATE: [birth year] ALIE KRUEGER MD CM:CONSTR:REPORT OF CONSULTATION 1657 04/25/17 2119 interface
--- NOTE | ~2017-04-24 | EKG ---
[place], [place] ELECTROCARDIOGRAM REPORT NAME: ALIE CARUSO UNIT #: [id number] ROOM: 507 DOCTOR: PATI CANO,ALIE BIRTHDATE: [birth year] DOS: 04/24/2017 TIME: 0333 hours. IMPRESSION: 1. Sinus rhythm. 2. Nonspecific ST-T changes. 3. Slightly prolonged QTc. 4. Baseline artifacts. ALIE KRUEGER MD CM:EKGRPT:ELECTROCARDIOGRAM REPORT 1040 1104 ALIE KRUEGER MD
--- NOTE | ~2017-04-24 | PR ---
[place], [place] PROGRESS NOTE NAME: ALIE CARUSO UNIT #: [id number] ROOM: 507 DOCTOR: ALIE KRUEGER MD BIRTHDATE: [birth year] DOS: 04/26/2017 Cardiology Progress Note REASON FOR VISIT: CHF and nonsustained V-tach. HISTORY OF PRESENT ILLNESS: The patient is feeling better. No shortness of breath or palpitation. No dizziness. His edema is better and he is anticipating transfer to [facility]. No PND, no orthopnea. REVIEW OF SYSTEMS: Review of the 8 systems negative except as mentioned above. RHYTHM STRIPS: The patient is in sinus rhythm with one episode of nonsustained V-tach, asymptomatic. PHYSICAL EXAMINATION: VITAL SIGNS: Blood pressure 155/79, pulse 57, respiratory rate 18. GENERAL: Alert, comfortable, in no acute distress. HEAD AND NECK: Neck is supple. No distended neck veins. No carotid bruit. CHEST: Symmetrical, nontender. LUNGS: Clear to auscultation bilaterally. HEART: Regular rhythm, no S3. Grade 1/6 systolic murmur. ABDOMEN: Benign, nontender. Bowel sounds normal. EXTREMITIES: Showed 1+ edema. Distal pulses are fair. SKIN: Warm and dry. No cyanosis, no clubbing. NEUROLOGIC: The patient is alert, oriented. No focal neurologic deficit. RECTAL: Deferred. DIAGNOSTIC TESTS: Review of the diagnostic test, his labs reviewed. Pertinent labs include hemoglobin 9.2, creatinine 3.0. Potassium 3.3. IMPRESSION: 1. Nonsustained ventricular tachycardia, asymptomatic. 2. Acute on chronic diastolic heart failure. 3. Chronic kidney disease. 4. Anemia. 5. Abdominal pain, currently stable. RECOMMENDATIONS: 1. Check magnesium levels and supplement the potassium. 2. He cannot tolerate any more beta blockers due to sinus bradycardia. 3. He is anticipating discharge to [facility], [facility]. 4. Continue his oral anticoagulation for his right upper extremity DVT. 5. There is no family at bedside at the time of my examination. 6. His 2D echo from January 2017 showed normal LV function. [place], [place] PROGRESS NOTE NAME: ALIE CARUSO UNIT #: [id number] ROOM: 507 DOCTOR: ALIE KRUEGER MD BIRTHDATE: [birth year] ALIE KRUEGER MD CM:PNTRANS [phone] ALIE KRUEGER MD 04/27/17 0312 interface
--- NOTE | ~2017-04-24 | EKG ---
[place], [place] ELECTROCARDIOGRAM REPORT NAME: ALIE CARUSO UNIT #: [id number] ROOM: 507 DOCTOR: PATI CANO,ALIE BIRTHDATE: [birth year] DOS: 04/25/2017 TIME: 2026. IMPRESSION: 1. Sinus rhythm. 2. Frequent ventricular ectopy. 3. Anterior ST-T changes. ALIE KRUEGER MD CM:EKGRPT:ELECTROCARDIOGRAM REPORT 1213 1229 ALIE KRUEGER MD
[2017-04-24 03:51] LABS: BASO % 0.3 % (0.0-1.0); EOS % 0.1 % (1.0-4.0); HEMATOCRIT 37.2 % (42.0-52.0); HEMOGLOBIN 11.7 g/dl (14.0-18.0); LYMPH # 0.6 10*3/uL (1.3-4.4); LYMPH % 7.5 % (27.0-41.0); MEAN CELL VOLUME 92.1 fl (80.0-94.0); MEAN CORPUSCULAR HGB CONC 31.5 g/dl (33.0-37.0); MEAN PLATELET VOLUME 10.8 fl (9.6-12.3); MONO # 0.2 10*3/uL (0.1-1.0); NEUT % 88.8 % (47.0-73.0); PLATELET COUNT AUTOMATED 209 10*3/uL (130-400); RED BLOOD COUNT 4.04 10*6/uL (4.50-5.90); RED CELL DISTRI WIDTH 13.1 % (0-14.5); WHITE BLOOD COUNT 7.9 10*3/uL (4.8-10.8)
[2017-04-24 04:01] LABS: INTERNATIONAL NORM RATIO 1.1 (2.0-3.5)
[2017-04-24 04:15] LABS: ALBUMIN 2.5 gm/dl (3.1-4.5); CREATININE 2.24 mg/dL (0.70-1.30); POTASSIUM 3.8 mmol/L (3.5-5.1); TOTAL PROTEIN 7.6 gm/dL (6.4-8.2)
[2017-04-24 04:18] LABS: TROPONIN I 0.044 ng/ml (<0.045)
[2017-04-24] MEDS ORDERED: VITAMIN D22000 UNIT PO (18:32)
[2017-04-25] VITALS: BP 138/64
[2017-04-25 04:00] VITALS: BP 157/75
[2017-04-25 06:43] LABS: BASO % 0.3 % (0.0-1.0); EOS % 0.4 % (1.0-4.0); LYMPH # 0.9 10*3/uL (1.3-4.4); LYMPH % 10.9 % (27.0-41.0); MEAN CELL VOLUME 93.4 fl (80.0-94.0); MEAN CORPUSCULAR HGB 29.7 pg (27.0-31.0); MEAN CORPUSCULAR HGB CONC 31.8 g/dl (33.0-37.0); MEAN PLATELET VOLUME 10.6 fl (9.6-12.3); MONO # 0.6 10*3/uL (0.1-1.0); MONO % 8.2 % (3.0-9.0); NEUT # 6.2 10*3/uL (2.3-7.9); NEUT % 79.8 % (47.0-73.0); PLATELET COUNT AUTOMATED 208 10*3/uL (130-400); RED CELL DISTRI WIDTH 13.3 % (0-14.5); WHITE BLOOD COUNT 7.8 10*3/uL (4.8-10.8)
[2017-04-25 06:55] LABS: CREATININE 2.63 mg/dL (0.70-1.30); POTASSIUM 3.2 mmol/L (3.5-5.1)
[2017-04-25 06:57] LABS: TOTAL PROTEIN 5.7 gm/dL (6.4-8.2)
[2017-04-25 07:00] LABS: HEMATOCRIT 29.9 % (42.0-52.0); HEMOGLOBIN 9.5 g/dl (14.0-18.0)
[2017-04-25 08:00] VITALS: BP 135/63
[2017-04-25 12:00] VITALS: BP 165/79
[2017-04-25 16:00] VITALS: BP 154/66
[2017-04-25 20:00] VITALS: BP 140/63
[2017-04-26] VITALS: BP 138/64
[2017-04-26 06:09] LABS: BASO % 0.6 % (0.0-1.0); EOS # 0.2 10*3/uL (0.0-0.4); EOS % 3.1 % (1.0-4.0); HEMATOCRIT 29.3 % (42.0-52.0); HEMOGLOBIN 9.2 g/dl (14.0-18.0); LYMPH # 1.4 10*3/uL (1.3-4.4); LYMPH % 20.9 % (27.0-41.0); MEAN CELL VOLUME 93.9 fl (80.0-94.0); MEAN CORPUSCULAR HGB 29.5 pg (27.0-31.0); MEAN CORPUSCULAR HGB CONC 31.4 g/dl (33.0-37.0); MEAN PLATELET VOLUME 10.3 fl (9.6-12.3); MONO # 0.6 10*3/uL (0.1-1.0); MONO % 8.9 % (3.0-9.0); NEUT # 4.5 10*3/uL (2.3-7.9); NEUT % 66.4 % (47.0-73.0); PLATELET COUNT AUTOMATED 197 10*3/uL (130-400); RED BLOOD COUNT 3.12 10*6/uL (4.50-5.90); RED CELL DISTRI WIDTH 13.5 % (0-14.5); WHITE BLOOD COUNT 6.7 10*3/uL (4.8-10.8)
[2017-04-26 06:38] LABS: CREATININE 3.05 mg/dL (0.70-1.30); POTASSIUM 3.3 mmol/L (3.5-5.1)
[2017-04-26 08:00] VITALS: BP 155/79
[2017-04-26 12:00] VITALS: BP 161/74
[2017-04-26 16:00] VITALS: BP 151/65
[2017-04-26] MEDS ORDERED: ZOFRAN4 MG PO (16:15)
== END 2017-04-26 16:34 | disposition home or self-care (01) | DRG 291 ==
LOC: ED 03:05 → EDHOLD 04:33 → 5E 04:33
PROVIDERS: Internal Medicine; Student in an Organized Health Care Education/Training Program
PROC: 02HV33Z Insertion of Infusion Device into Superior Vena Cava, Percutaneous Approach (ICD-10-PCS; principal; 2017-04-25)
PROC: B548ZZA Ultrasonography of Superior Vena Cava, Guidance (ICD-10-PCS; 2017-04-25)
DX: I13.0 Hypertensive heart and chronic kidney disease with heart failure and stage 1 through stage 4 chronic kidney disease, or unspecified chronic kidney disease (principal); I50.33 Acute on chronic diastolic (congestive) heart failure; J96.91 Respiratory failure, unspecified with hypoxia; I47.2 Ventricular tachycardia; E87.2 Acidosis; N18.4 Chronic kidney disease, stage 4 (severe); I82.621 Acute embolism and thrombosis of deep veins of right upper extremity; K31.84 Gastroparesis; E11.51 Type 2 diabetes mellitus with diabetic peripheral angiopathy without gangrene; E11.22 Type 2 diabetes mellitus with diabetic chronic kidney disease; E66.01 Morbid (severe) obesity due to excess calories; E11.43 Type 2 diabetes mellitus with diabetic autonomic (poly)neuropathy; I16.1 Hypertensive emergency; N40.0 Benign prostatic hyperplasia without lower urinary tract symptoms; I44.0 Atrioventricular block, first degree; A08.4 Viral intestinal infection, unspecified; E11.69 Type 2 diabetes mellitus with other specified complication; E11.65 Type 2 diabetes mellitus with hyperglycemia; E78.5 Hyperlipidemia, unspecified; E55.9 Vitamin D deficiency, unspecified; D64.9 Anemia, unspecified; F10.10 Alcohol abuse, uncomplicated; K21.9 Gastro-esophageal reflux disease without esophagitis; M1A.9XX0 Chronic gout, unspecified, without tophus (tophi); G47.00 Insomnia, unspecified; J44.9 Chronic obstructive pulmonary disease, unspecified; R91.8 Other nonspecific abnormal finding of lung field; Z79.82 Long term (current) use of aspirin; Z82.49 Family history of ischemic heart disease and other diseases of the circulatory system; Z79.4 Long term (current) use of insulin; Z83.3 Family history of diabetes mellitus; Z83.6 Family history of other diseases of the respiratory system; Z79.899 Other long term (current) drug therapy; Z68.28 Body mass index [BMI] 28.0-28.9, adult

== ENCOUNTER → 2017-06-20 | Outpatient (CLI) | payer OTHER ==
[~2017-06-20] MED LIST changes: +VITAMIN D22000 UNIT PO; +ZOFRAN4 MG PO
[2017-06-20 13:10] LABS: BILIRUBIN NEGATIVE (NEGATIVE); BLOOD 3+ (NEGATIVE); CLARITY TURBID (CLEAR); COLOR YELLOW (YELLOW); GLUCOSE NEGATIVE (NEGATIVE); KETONE NEGATIVE (NEGATIVE); LEUKO ESTERASE 3+ (NEGATIVE); NITRITE NEGATIVE (NEGATIVE); SPECIFIC GRAVITY 1.025 (1.005-1.030); UROBILINOGEN 0.2 E.U./dl (0.2-1.0)
[2017-06-20 13:15] LABS: BASO % 0.4 % (0.0-1.0); EOS # 0.1 10*3/uL (0.0-0.4); EOS % 1.2 % (1.0-4.0); HEMATOCRIT 32.9 % (42.0-52.0); HEMOGLOBIN 10.4 g/dl (14.0-18.0); LYMPH % 18.5 % (27.0-41.0); MEAN CELL VOLUME 89.6 fl (80.0-94.0); MEAN CORPUSCULAR HGB 28.3 pg (27.0-31.0); MEAN CORPUSCULAR HGB CONC 31.6 g/dl (33.0-37.0); MEAN PLATELET VOLUME 10.6 fl (9.6-12.3); MONO # 0.4 10*3/uL (0.1-1.0); MONO % 6.8 % (3.0-9.0); NEUT # 3.7 10*3/uL (2.3-7.9); NEUT % 72.9 % (47.0-73.0); PLATELET COUNT AUTOMATED 157 10*3/uL (130-400); RED BLOOD COUNT 3.67 10*6/uL (4.50-5.90); RED CELL DISTRI WIDTH 13.8 % (0-14.5); WHITE BLOOD COUNT 5.1 10*3/uL (4.8-10.8)
[2017-06-20 13:28] LABS: ALBUMIN 2.5 gm/dl (3.1-4.5); CREATININE 2.49 mg/dL (0.70-1.30); PHOSPHOROUS 3.6 mg/dL (2.5-4.9)
[2017-06-20 13:42] LABS: BACTERIA 4+; WBC TNTC wbc/hpf (0-5)
[2017-06-20 13:46] LABS: FERRITIN 85.9 ng/mL (22.0-322.0); VITAMIN D, 25-HYDROXY 27.6 ng/mL (30-100)
[2017-06-20 13:47] LABS: PTH INTACT 99.4 pg/mL (14.0-72.0)
== END | disposition home or self-care (01) ==
LOC: LAB 12:29
PROVIDERS: Internal Medicine Nephrology
DX: N18.3 Chronic kidney disease, stage 3 (moderate) (principal); D63.1 Anemia in chronic kidney disease; N25.81 Secondary hyperparathyroidism of renal origin; E83.42 Hypomagnesemia

== ENCOUNTER → 2017-06-30 | Outpatient (CLI) | payer OTHER ==
[2017-06-30 13:30] LABS: BASO % 0.4 % (0.0-1.0); EOS # 0.1 10*3/uL (0.0-0.4); EOS % 0.9 % (1.0-4.0); HEMATOCRIT 35.3 % (42.0-52.0); HEMOGLOBIN 11.1 g/dl (14.0-18.0); LYMPH % 17.6 % (27.0-41.0); MEAN CELL VOLUME 90.5 fl (80.0-94.0); MEAN CORPUSCULAR HGB 28.5 pg (27.0-31.0); MEAN CORPUSCULAR HGB CONC 31.4 g/dl (33.0-37.0); MEAN PLATELET VOLUME 11.5 fl (9.6-12.3); MONO # 0.4 10*3/uL (0.1-1.0); MONO % 7.8 % (3.0-9.0); NEUT % 73.1 % (47.0-73.0); PLATELET COUNT AUTOMATED 164 10*3/uL (130-400); WHITE BLOOD COUNT 5.4 10*3/uL (4.8-10.8)
[2017-06-30 13:47] LABS: ALBUMIN 2.7 gm/dl (3.1-4.5); CREATININE 2.62 mg/dL (0.70-1.30); POTASSIUM 3.4 mmol/L (3.5-5.1); TOTAL PROTEIN 6.9 gm/dL (6.4-8.2)
== END | disposition home or self-care (01) ==
LOC: LAB 12:31
PROVIDERS: Internal Medicine
DX: R06.02 Shortness of breath (principal)

== ENCOUNTER → 2017-07-07 | Outpatient (CLI) | payer OTHER | END | disposition home or self-care (01) | LOC: RAD 10:26 | DX: J90 Pleural effusion, not elsewhere classified (principal); I10 Essential (primary) hypertension; E11.9 Type 2 diabetes mellitus without complications; Z87.891 Personal history of nicotine dependence ==

== ENCOUNTER → 2017-09-05 | Outpatient (CLI) | payer OTHER ==
[~2017-09-05] MED LIST changes: +ATARAX,VISTARIL50 MG PO; +COREG25 MG PO; +COUMADIN0.5 MG PO; +COUMADIN2.5 M1 PO; +COUMADIN5 M2 PO; +LANTUS SOL100 UNIT/1 SQ; +MELATONIN3 MG PO; +TORSEMIDE20 MG PO
[2017-09-05 13:38] LABS: CREATININE 3.66 mg/dL (0.70-1.30); POTASSIUM 3.8 mmol/L (3.5-5.1)
== END | disposition home or self-care (01) ==
LOC: LAB 12:32
PROVIDERS: Internal Medicine
DX: N18.3 Chronic kidney disease, stage 3 (moderate) (principal)

== ENCOUNTER → 2017-10-19 | Outpatient (CLI) | payer OTHER ==
[2017-10-19 13:39] LABS: BILIRUBIN NEGATIVE (NEGATIVE); BLOOD TRACE-LYSED (NEGATIVE); CLARITY CLOUDY (CLEAR); COLOR YELLOW (YELLOW); GLUCOSE TRACE (NEGATIVE); KETONE NEGATIVE (NEGATIVE); LEUKO ESTERASE NEGATIVE (NEGATIVE); NITRITE NEGATIVE (NEGATIVE); UROBILINOGEN 0.2 E.U./dl (0.2-1.0)
[2017-10-19 13:41] LABS: BASO % 0.4 % (0.0-1.0); EOS % 0.8 % (1.0-4.0); HEMATOCRIT 39.4 % (42.0-52.0); HEMOGLOBIN 12.4 g/dl (14.0-18.0); LYMPH % 19.2 % (27.0-41.0); MEAN CELL VOLUME 91.2 fl (80.0-94.0); MEAN CORPUSCULAR HGB 28.7 pg (27.0-31.0); MEAN CORPUSCULAR HGB CONC 31.5 g/dl (33.0-37.0); MEAN PLATELET VOLUME 10.9 fl (9.6-12.3); MONO # 0.3 10*3/uL (0.1-1.0); MONO % 6.9 % (3.0-9.0); NEUT # 3.6 10*3/uL (2.3-7.9); NEUT % 72.5 % (47.0-73.0); PLATELET COUNT AUTOMATED 170 10*3/uL (130-400); RED BLOOD COUNT 4.32 10*6/uL (4.50-5.90); RED CELL DISTRI WIDTH 14.8 % (0-14.5); WHITE BLOOD COUNT 4.9 10*3/uL (4.8-10.8)
[2017-10-19 13:48] LABS: URINE CREATININE RANDOM 88.7 mg/dL
[2017-10-19 14:05] LABS: BACTERIA 3+
[2017-10-19 14:06] LABS: ALBUMIN 2.6 gm/dl (3.1-4.5); CREATININE 3.14 mg/dL (0.70-1.30); PHOSPHOROUS 3.9 mg/dL (2.5-4.9); POTASSIUM 3.9 mmol/L (3.5-5.1)
== END | disposition home or self-care (01) ==
LOC: LAB 12:40
PROVIDERS: Internal Medicine Nephrology
DX: N25.81 Secondary hyperparathyroidism of renal origin (principal); E83.42 Hypomagnesemia; N18.3 Chronic kidney disease, stage 3 (moderate); D63.1 Anemia in chronic kidney disease; Z79.899 Other long term (current) drug therapy

== ENCOUNTER → 2017-10-20 | Outpatient (CLI) | payer OTHER ==
[2017-10-20 13:52] LABS: FERRITIN 71.9 ng/mL (22.0-322.0); PTH INTACT 144.6 pg/mL (14.0-72.0); VITAMIN D, 25-HYDROXY 25.7 ng/mL (30-100)
== END | disposition home or self-care (01) ==
LOC: LAB 10:51
PROVIDERS: Internal Medicine Nephrology
DX: N18.3 Chronic kidney disease, stage 3 (moderate) (principal); D63.1 Anemia in chronic kidney disease; E83.42 Hypomagnesemia; N25.81 Secondary hyperparathyroidism of renal origin; Z79.899 Other long term (current) drug therapy

== ENCOUNTER → 2018-02-17 | Outpatient (CLI) | payer OTHER ==
[~2018-02-17] MED LIST changes: +BP MEDICATION PO; +DIABETES MED; +SENNO8.6 MG PO; +VITAMIN D-32000 UNIT PO
[2018-02-17 11:49] LABS: BILIRUBIN NEGATIVE (NEGATIVE); BLOOD TRACE-INTACT (NEGATIVE); CLARITY SL CLOUDY (CLEAR); COLOR YELLOW (YELLOW); GLUCOSE NEGATIVE (NEGATIVE); KETONE NEGATIVE (NEGATIVE); LEUKO ESTERASE 1+ (NEGATIVE); NITRITE NEGATIVE (NEGATIVE); UROBILINOGEN 0.2 E.U./dl (0.2-1.0)
[2018-02-17 11:58] LABS: URINE CREATININE RANDOM 86.4 mg/dL
[2018-02-17 12:13] LABS: BASO % 0.4 % (0.0-1.0); EOS % 0.2 % (1.0-4.0); HEMATOCRIT 43.4 % (42.0-52.0); HEMOGLOBIN 13.5 g/dl (14.0-18.0); LYMPH % 21.3 % (27.0-41.0); MEAN CELL VOLUME 95.6 fl (80.0-94.0); MEAN CORPUSCULAR HGB 29.7 pg (27.0-31.0); MEAN CORPUSCULAR HGB CONC 31.1 g/dl (33.0-37.0); MEAN PLATELET VOLUME 11.1 fl (9.6-12.3); MONO # 0.6 10*3/uL (0.1-1.0); MONO % 12.2 % (3.0-9.0); NEUT % 65.9 % (47.0-73.0); PLATELET COUNT AUTOMATED 156 10*3/uL (130-400); RED BLOOD COUNT 4.54 10*6/uL (4.50-5.90); RED CELL DISTRI WIDTH 13.6 % (0-14.5); WHITE BLOOD COUNT 4.5 10*3/uL (4.8-10.8)
[2018-02-17 12:14] LABS: ALBUMIN 2.4 gm/dl (3.1-4.5); CREATININE 2.87 mg/dL (0.70-1.30); PHOSPHOROUS 3.3 mg/dL (2.5-4.9); POTASSIUM 3.7 mmol/L (3.5-5.1)
[2018-02-17 12:19] LABS: BACTERIA 3+; WBC TNTC wbc/hpf (0-5)
[2018-02-17 12:37] LABS: FERRITIN 32.5 ng/mL (22.0-322.0); PTH INTACT 146.1 pg/mL (18.5-88.0); VITAMIN D, 25-HYDROXY 37.8 ng/mL (30-100)
== END | disposition home or self-care (01) ==
LOC: LAB 10:48
PROVIDERS: Internal Medicine Nephrology
DX: N18.3 Chronic kidney disease, stage 3 (moderate) (principal); D63.1 Anemia in chronic kidney disease; N25.81 Secondary hyperparathyroidism of renal origin; E83.42 Hypomagnesemia; Z79.899 Other long term (current) drug therapy

== ENCOUNTER 2018-03-23 04:16 | Inpatient (IN) | payer OTHER ==
[~2018-03-23] VITALS: Ht 177.8 cm; Wt 108.4 kg
--- NOTE | ~2018-03-23 | PR ---
[place], [place] PROGRESS NOTE NAME: ALIE CARUSO UNIT #: [id number] ROOM: [facility] DOCTOR: KYMBERLY CLARK MD BIRTHDATE: [birth year] DOS: 03/26/2018 NEPHROLOGY FOLLOWUP NOTE SUBJECTIVE: The patient was seen and examined. He remains in the ICU. He does appear to be better and states he feels better today. He was sitting in a chair. His urine output has picked up and seems to have cleared up as well. He denies shortness of breath. PHYSICAL EXAMINATION: VITAL SIGNS: Temperature 98.2, pulse 62, respiratory rate 25, blood pressure 145/60. HEENT: Shows no JVD. LUNGS: Diminished breath sounds with no wheeze. HEART: S1, S2. No rub, thrill or gallop. ABDOMEN: Soft, nontender. EXTREMITIES: Had trace to 1+ edema. SKIN: Showed no rash. LABORATORY DATA: Hemoglobin 10.6, white count of 5.0, platelets 119. Sodium 142, potassium 3.8, CO2 of 33, BUN 35, creatinine 4.8, glucose 101, calcium 7.7. ASSESSMENT AND PLAN: 1. Acute on chronic kidney disease with a baseline creatinine that had been somewhere in the range of 3 with fluctuations. The patient's acute kidney injury is likely related to a prerenal/acute tubular necrosis like picture. Renal function has stabilized and he is making more urine. Continue ongoing supportive care. Continue diuretics. Replace electrolytes as needed. I did not see any urgent need for dialysis at this time. We will continue to monitor very carefully. 2. Dyspnea with pulmonary edema and congestive heart failure. Continue diuretics. Supportive care. He has clinically improved. 3. Diabetes mellitus with diabetic nephropathy, nephrotic range proteinuria. Continue insulin. 4. Hypertension. Continue medications. He does appear to be still on his CHUY inhibitor. If his creatinine does not improve tomorrow, this should be held. Since, he has a stable creatinine today, we can continue it for now. 5. Anemia. Transfuse as needed. [place], [place] PROGRESS NOTE NAME: ALIE CARUSO UNIT #: [id number] ROOM: [facility] DOCTOR: KYMBERLY CLARK MD BIRTHDATE: [birth year] KYMBERLY CLARK MD CM:PNTRANS [phone] KYMBERLY CLARK MD 03/26/185 interface
--- NOTE | ~2018-03-23 | CON ---
[place], [place] REPORT OF CONSULTATION NAME: ALIE CARUSO UNIT #: [id number] ROOM: [facility] DOCTOR: KYMBERLY CLARK MD BIRTHDATE: [birth year] DOS: 03/25/2018 NEPHROLOGY CONSULTATION REASON FOR CONSULTATION: The patient known to you/acute on chronic kidney disease. HISTORY OF PRESENT ILLNESS: The patient is a 73-year-old male. He is known to our service. He follows with my partner, Dr. De Souza in the office. He has known stage 4 chronic kidney disease with nephrotic range proteinuria, felt likely related to diabetes. His creatinine levels have fluctuated, but his baseline has been somewhere in the range of 3. He has a history of hypertension, anemia, secondary hyperparathyroidism as well, CHF. He last saw Dr. De Souza about a month ago. It seems he presented to the hospital with shortness of breath. It seems he came in on gi. We were consulted yesterday due to large rise in his creatinine. When he first presented, his creatinine was 2.87. He did undergo a CT scan without contrast, which showed enlarged prostate and questionable bladder outlet obstruction as well as findings concerning for volume overload with pleural effusions and anasarca. The patient unfortunately was transferred to the ICU due to no improvement. He had not been making much urine. Goldsmith catheter was placed yesterday after I suggested. He still remained with poor urine output, now actually has hematuria. He was on a heparin drip. He appeared comfortable when I saw him on nasal cannula. He did not have any chest pain, palpitations, abdominal pain or vomiting, but did complain of nausea and dry heaves and increasing edema and fatigue. He was started that seems on some antibiotics as well as IV diuretics, but has had a poor response. His creatinine today was noted to be 4.85. The patient has had negative blood cultures since admission. Urine culture also was negative. I did note a renal ultrasound was performed yesterday, which showed no hydronephrosis. ALLERGIES: No known drug allergies. HOME MEDICATIONS: Included Lipitor, Coreg, vitamin D, insulin, lisinopril, melatonin, Singulair, Prilosec, Senokot, MiraLax, terazosin, Coumadin, torsemide. PAST MEDICAL AND SURGICAL HISTORY: 1. Known chronic kidney disease as stated above. 2. Longstanding diabetes mellitus with history of nephropathy and nephrotic range proteinuria. 3. CHF. 4. BPH. 5. COPD. 6. DVT. 7. GERD. 8. Gout. 9. Hyperlipidemia. 10. History of lung nodules. 11. Anemia of chronic disease. [place], [place] REPORT OF CONSULTATION NAME: ALIE CARUSO UNIT #: [id number] ROOM: [facility] DOCTOR: KYMBERLY CLARK MD BIRTHDATE: [birth year] 12. Seasonal allergies. 13. History of pleural effusion. 14. History of urinary tract infection. 15. Vitamin D deficiency. 16. Secondary hyperparathyroidism. 17. Prostate biopsy. 18. Tonsillectomy and adenoidectomy. 19. Colonoscopy. 20. Thoracentesis. FAMILY HISTORY: No reports of chronic kidney disease, otherwise noncontributory. SOCIAL HISTORY: He has a history of tobacco abuse, but quit in 1993. He does drink alcohol fairly regularly with a few beverages per day. REVIEW OF SYSTEMS: As per HPI, otherwise, a 10-point review of systems was reviewed and was negative. PHYSICAL EXAMINATION: VITAL SIGNS: Temperature 97.6, pulse 77, respiratory rate 22, systolic blood pressures were in the 90s-130s. GENERAL: He is pleasant, lying in bed, in no acute distress. HEENT: Shows no JVD. Sclerae are anicteric. Mucous membranes appeared somewhat dry. Pharynx is clear. NECK: Supple. Trachea is midline. No neck lymphadenopathy or thyromegaly. LUNGS: Diminished breath sounds with no wheezes. No tactile fremitus. He is not using accessory muscles of respiration. HEART: S1, S2. No rub, thrill or gallop. ABDOMEN: Soft, nontender. I cannot appreciate organomegaly. There is no rigidity, rebound or guarding. There is no CVA tenderness. EXTREMITIES: Had 1-2+ edema. There is no lower extremity lymphadenopathy. Distal pulses are 2+. SKIN: Showed no overt rash. There was no petechia or purpura. Skin temperature is warm. NEUROLOGIC: He is awake, alert and following commands. Moves all 4 extremities. Cranial nerves are intact. DIAGNOSTIC DATA: Chest x-ray was personally reviewed. My interpretation was bilateral effusions with bilateral pulmonary edema. Hemoglobin 11.2, white count of 5.8, platelets 124. BUN 31, creatinine 4.85, sodium 144, potassium 4.0, CO2 of 33, calcium 7.8 and albumin 2.0. IMPRESSION: 1. Acute on chronic kidney disease. The patient has baseline creatinine somewhere in the range of 3 with fluctuations at times. The etiology of his acute kidney injury is not clear, but likely related to a prerenal/acute tubular necrosis like picture. I am not clear if there is an element of cardiorenal syndrome. It is not clear what the patient's recent ejection fraction has been. Certainly, this is a possibility for a low flow state if he has a drop in his [place], [place] REPORT OF CONSULTATION NAME: ALIE CARUSO UNIT #: [id number] ROOM: [facility] DOCTOR: EDUARDO CANO,KYMBERLY Cao BIRTHDATE: [birth year] ejection fraction and cardiac output. 2. Dyspnea, likely due to pulmonary edema/congestive heart disease. 3. Diabetes mellitus with diabetic nephropathy and nephrotic range proteinuria. 4. Anemia of chronic disease. 5. Mild thrombocytopenia. 6. History of hypertension with transient hypotension. PLAN: 1. The patient's rising creatinine is concerning. He is not making much urine. He may require dialysis. Would continue Bumex for now. Avoid hypotension. 2. Dose meds for current creatinine clearance. 3. I did note he appears to have gross hematuria. This likely is traumatic following the Goldsmith placement and being on anticoagulation. Continue to monitor closely. If this does not improve, he may need continuous bladder irrigation and Urology consultation. If no Urology is available and he has continued gross hematuria, he may need to be transferred. 4. Continue ongoing supportive care. Thank you for this consultation. We will follow with you. KYMBERLY CLARK MD CM:CONSTR:REPORT OF CONSULTATION 1324 03/26/18 0356 interface
--- NOTE | ~2018-03-23 | EKG ---
[place], [place] ELECTROCARDIOGRAM REPORT NAME: ALIE CARUSO UNIT #: [id number] ROOM: [facility] DOCTOR: JOANNA DRAFT REPORT BIRTHDATE: [birth year] [facility] Test Date: 2018-03-24 Test Time: 13:00:04 Pat Name: ALIE CARUSO Department: Room: [place] [address] Gender: M Yarn Dyer: : 1945 Requested By: BARI GARCIA Order Number: [id number] Reading MD: Measurements Intervals [place] Rate: 64 P: 15 WY: 219 QRS: 19 QRSD: 88 T: 134 QT: 495 QTc: 511 Interpretive Statements Sinus rhythm Borderline prolonged [place] interval Nonspecific T abnrm, anterolateral leads Prolonged QT interval Baseline wander in lead(s) I,aVR,aVL,V3 Compared to ECG 12/12/2017 10:10:41 Atrial premature complex(es) no longer present T-wave abnormality no longer present CM:EKGRPT:ELECTROCARDIOGRAM REPORT 1300 1002 BARI PEREZ DRAFT REPORT BARI GARCIA DO
--- NOTE | ~2018-03-23 | PR ---
[place], [place] PROGRESS NOTE [id number] UNIT #: [id number] ROOM: 407 DOCTOR: MAU PENNY MD BIRTHDATE: [birth year] DOS: SUBJECTIVE: The patient has been admitted to the hospital with acute congestive heart failure with difficulty in breathing, coronary heart disease, pneumonia, subtherapeutic INR, chronic kidney disease, hypercalcemia, hypoalbuminemia, elevated CO2 level, gastroparesis, hypokalemia and volume overload, respiratory failure and hematuria. The patient is feeling good. He has Goldsmith catheter in and the urine is coming out very clear. There is no blood in that and the diuresis is good. He says he is feeling much better than before. His breathing is much better than yesterday. Swelling of her legs is improving. There is no chest pain. OBJECTIVE: HEART: Regular. LUNGS: Still showing some basal crepitation. ABDOMEN: Soft. Liver, spleen not palpable. No tenderness. With 1+ edema of the legs. VITAL SIGNS: Blood pressure 155/52, pulse 65, respirations 20, temperature 98.4. LABORATORY DATA: Protime is 48.8. INR is 4.5, so it is quite high. CBC showed white count 5000, hemoglobin 11.4, hematocrit 37.9. Basic metabolic profile showed glucose 285, BUN 50, creatinine 3.59, GFR 17 indicating renal failure, chloride 97, CO2 of 35 which is high, calcium 7.38. ASSESSMENT AND PLAN: We will hold Coumadin for the time being. There is some improvement, but is still in not very good shape. MAU PENNY MD CM:PNTRANS 1713 0532 MAU PENNY MD 04/02/18 0532 interface
--- NOTE | ~2018-03-23 | PR ---
[place], [place] PROGRESS NOTE [id number] UNIT #: [id number] ROOM: 407 DOCTOR: MAU PENNY MD BIRTHDATE: [birth year] DOS: SUBJECTIVE: The patient has been admitted to hospital with acute congestive heart failure with difficulty in breathing, coronary heart disease and pneumonia, supratherapeutic INR level, chronic kidney disease, hypercalcemia, hyperalbuminemia, elevated CO2 level and gastroparesis and hypokalemia. The patient is feeling somewhat better today. He is breathing better. His swelling of leg is better. He is diuresing quite fairly good. His protime today is 36.8, which is better than before. OBJECTIVE: VITAL SIGNS: His blood pressure is 184/82, this was one time before ____ 140/84. We will recheck his blood pressure, pulse is 62, respirations 18, temperature 98. HEART: Irregular. CHEST: Showing slight basal crepitation. ABDOMEN: Soft. Liver and spleen not palpable. No area of tenderness, no mass palpable. EXTREMITIES: No edema of leg. MAU PENNY MD CM:PNTRANS 1301 1535 MAU PENNY MD 04/02/18 1535 interface
--- NOTE | ~2018-03-23 | PR ---
[place], [place] PROGRESS NOTE NAME: ALIE CARUSO UNIT #: [id number] ROOM: 407 DOCTOR: JOSE J TAVAREZ DO BIRTHDATE: [birth year] DOS: 04/02/2018 SUBJECTIVE: The patient offers no complaints today. He is anxious to have his Goldsmith catheter removed. He feels his edema and his dyspnea have all improved. PHYSICAL EXAMINATION: VITAL SIGNS: Blood pressure is 190/80, pulse 64, respiration 19 and temperature was 98.1 degrees. GENERAL: A well-appearing female, awake, alert and oriented x 3. HEAD AND NECK: No JVD is appreciated. LUNGS: Slightly diminished at the left base greater than the right. HEART: Regular, without an S3 or rub. No JVD is appreciated. ABDOMEN: Soft, positive bowel sounds. EXTREMITIES: No clubbing or cyanosis. There is +3 edema noted. LABORATORY DATA: From today, none. ASSESSMENTS: 1. Chronic kidney disease. ____ chemistries from today, but renal function has been satisfactory on the previous days labs. He remains volume overloaded prior to his pleural effusion/volume overload. He is being diuresed and has maintained on bicarbonate drip. He is approximately 3 liters negative from yesterday point. 2. Hypertension. Blood pressure is under fair control. RECOMMENDATIONS: Continue him on his current Bumex drip. We will follow intake and output as well as renal function and electrolytes closely. We will reorder chemistry panels for tomorrow. JOSE J TAVAREZ DO CM:PNTRANS 23 50 JOSE J TAVAREZ DO 04/02/18 225 interface
[2018-03-23 08:17] VITALS: BP 157/69
[2018-03-23 12:00] VITALS: BP 174/68
[2018-03-23 16:00] VITALS: BP 120/46
[2018-03-23 20:00] VITALS: BP 120/54
[2018-03-24] VITALS: BP 111/50
[2018-03-24 04:06] LABS: BASO % 0.4 % (0.0-1.0); EOS % 0.2 % (1.0-4.0); LYMPH % 18.1 % (27.0-41.0); MEAN CORPUSCULAR HGB 29.4 pg (27.0-31.0); MEAN CORPUSCULAR HGB CONC 29.8 g/dl (33.0-37.0); MEAN PLATELET VOLUME 10.9 fl (9.6-12.3); MONO # 0.5 10*3/uL (0.1-1.0); MONO % 8.8 % (3.0-9.0); NEUT # 3.9 10*3/uL (2.3-7.9); NEUT % 72.3 % (47.0-73.0); PLATELET COUNT AUTOMATED 133 10*3/uL (130-400); RED BLOOD COUNT 3.67 10*6/uL (4.50-5.90); RED CELL DISTRI WIDTH 13.8 % (0-14.5); WHITE BLOOD COUNT 5.4 10*3/uL (4.8-10.8)
[2018-03-24 04:11] LABS: HEMATOCRIT 36.2 % (42.0-52.0); HEMOGLOBIN 10.8 g/dl (14.0-18.0); MEAN CELL VOLUME 98.6 fl (80.0-94.0)
[2018-03-24 04:20] LABS: INTERNATIONAL NORM RATIO 1.3 (2.0-3.5)
[2018-03-24 04:30] LABS: CREATININE 3.79 mg/dL (0.70-1.30); POTASSIUM 3.7 mmol/L (3.5-5.1)
[2018-03-24 08:49] VITALS: BP 96/62
[2018-03-24 11:52] LABS: ABG BASE EXCESS 3.6 mmol/L (-2.0-2.0); ABG HCO3 31.7 mmol/l (22-26); ARTERIAL BLOOD GAS PCO2 68.3 mmHg (35-45); ARTERIAL BLOOD GAS PH 7.286 (7.35-7.45)
[2018-03-24 12:00] VITALS: BP 127/58
[2018-03-24 13:14] LABS: BASO % 0.4 % (0.0-1.0); HEMATOCRIT 41.1 % (42.0-52.0); HEMOGLOBIN 12.1 g/dl (14.0-18.0); LYMPH # 0.9 10*3/uL (1.3-4.4); LYMPH % 17.7 % (27.0-41.0); MEAN CELL VOLUME 99.8 fl (80.0-94.0); MEAN CORPUSCULAR HGB 29.4 pg (27.0-31.0); MEAN CORPUSCULAR HGB CONC 29.4 g/dl (33.0-37.0); MEAN PLATELET VOLUME 11.2 fl (9.6-12.3); MONO # 0.4 10*3/uL (0.1-1.0); MONO % 7.7 % (3.0-9.0); NEUT # 3.6 10*3/uL (2.3-7.9); PLATELET COUNT AUTOMATED 138 10*3/uL (130-400); RED BLOOD COUNT 4.12 10*6/uL (4.50-5.90); RED CELL DISTRI WIDTH 13.9 % (0-14.5); WHITE BLOOD COUNT 4.9 10*3/uL (4.8-10.8)
[2018-03-24 13:34] LABS: CREATININE 4.23 mg/dL (0.70-1.30); PHOSPHOROUS 5.7 mg/dL (2.5-4.9); POTASSIUM 3.8 mmol/L (3.5-5.1); TOTAL PROTEIN 5.9 gm/dL (6.4-8.2)
[2018-03-24 13:35] LABS: TROPONIN I 0.03 ng/ml (<0.045)
[2018-03-24 15:10] LABS: BILIRUBIN NEGATIVE (NEGATIVE); BLOOD TRACE-LYSED (NEGATIVE); CLARITY CLOUDY (CLEAR); COLOR YELLOW (YELLOW); GLUCOSE NEGATIVE (NEGATIVE); KETONE NEGATIVE (NEGATIVE); LEUKO ESTERASE TRACE (NEGATIVE); NITRITE NEGATIVE (NEGATIVE); PH 5.5 (5.0-9.0); SPECIFIC GRAVITY >= 1.030 (1.005-1.030); UROBILINOGEN 0.2 E.U./dl (0.2-1.0)
[2018-03-24 15:16] LABS: BACTERIA 4+
[2018-03-24 16:00] VITALS: BP 120/51
[2018-03-24 20:00] VITALS: BP 137/63
[2018-03-25] VITALS: BP 130/70
[2018-03-25 04:00] VITALS: BP 144/65
[2018-03-25 05:46] LABS: ACT PARTIAL THROMBO TIME 70.3 SECONDS (20.8-31.5); INTERNATIONAL NORM RATIO 1.2 (2.0-3.5)
[2018-03-25 05:50] LABS: BASO % 0.3 % (0.0-1.0); EOS % 0.2 % (1.0-4.0); HEMATOCRIT 38.7 % (42.0-52.0); HEMOGLOBIN 11.2 g/dl (14.0-18.0); LYMPH # 0.9 10*3/uL (1.3-4.4); LYMPH % 14.6 % (27.0-41.0); MEAN CELL VOLUME 100.3 fl (80.0-94.0); MEAN CORPUSCULAR HGB CONC 28.9 g/dl (33.0-37.0); MEAN PLATELET VOLUME 11.6 fl (9.6-12.3); MONO # 0.4 10*3/uL (0.1-1.0); MONO % 7.2 % (3.0-9.0); NEUT # 4.5 10*3/uL (2.3-7.9); NEUT % 77.5 % (47.0-73.0); PLATELET COUNT AUTOMATED 124 10*3/uL (130-400); RED BLOOD COUNT 3.86 10*6/uL (4.50-5.90); RED CELL DISTRI WIDTH 13.8 % (0-14.5); WHITE BLOOD COUNT 5.8 10*3/uL (4.8-10.8)
[2018-03-25 05:51] LABS: CREATININE 4.85 mg/dL (0.70-1.30); TOTAL PROTEIN 5.8 gm/dL (6.4-8.2)
[2018-03-25 08:00] VITALS: BP 93/60
[2018-03-25 12:00] VITALS: BP 101/56
[2018-03-25 16:00] VITALS: BP 148/68
[2018-03-25 20:00] VITALS: BP 147/69
[2018-03-26] VITALS: BP 157/65
[2018-03-26 04:00] VITALS: BP 143/63
[2018-03-26 05:39] LABS: CREATININE 4.8 mg/dL (0.70-1.30); POTASSIUM 3.8 mmol/L (3.5-5.1)
[2018-03-26 05:41] LABS: ACT PARTIAL THROMBO TIME 24.6 SECONDS (20.8-31.5); INTERNATIONAL NORM RATIO 1.4 (2.0-3.5)
[2018-03-26 05:42] LABS: BASO % 0.2 % (0.0-1.0); HEMATOCRIT 34.9 % (42.0-52.0); HEMOGLOBIN 10.6 g/dl (14.0-18.0); LYMPH # 0.9 10*3/uL (1.3-4.4); LYMPH % 18.5 % (27.0-41.0); MEAN CELL VOLUME 97.8 fl (80.0-94.0); MEAN CORPUSCULAR HGB 29.7 pg (27.0-31.0); MEAN CORPUSCULAR HGB CONC 30.4 g/dl (33.0-37.0); MEAN PLATELET VOLUME 11.4 fl (9.6-12.3); MONO # 0.6 10*3/uL (0.1-1.0); MONO % 11.8 % (3.0-9.0); NEUT # 3.5 10*3/uL (2.3-7.9); NEUT % 69.3 % (47.0-73.0); PLATELET COUNT AUTOMATED 119 10*3/uL (130-400); RED BLOOD COUNT 3.57 10*6/uL (4.50-5.90); RED CELL DISTRI WIDTH 13.6 % (0-14.5)
[2018-03-26 08:00] VITALS: BP 145/60
[2018-03-26 12:00] VITALS: BP 137/55
[2018-03-26 16:00] VITALS: BP 151/82
[2018-03-26 20:00] VITALS: BP 150/66
[2018-03-27] VITALS: BP 158/68
[2018-03-27 07:20] LABS: INTERNATIONAL NORM RATIO 1.7 (2.0-3.5)
[2018-03-27 08:00] VITALS: BP 164/78
[2018-03-27 12:00] VITALS: BP 137/53
[2018-03-27 16:00] VITALS: BP 150/60
[2018-03-27 20:00] VITALS: BP 158/59
[2018-03-28] VITALS: BP 138/49
[2018-03-28 06:25] LABS: BASO % 0.2 % (0.0-1.0); EOS % 0.7 % (1.0-4.0); HEMATOCRIT 36.3 % (42.0-52.0); HEMOGLOBIN 11.1 g/dl (14.0-18.0); LYMPH # 0.8 10*3/uL (1.3-4.4); LYMPH % 17.9 % (27.0-41.0); MEAN CELL VOLUME 95.5 fl (80.0-94.0); MEAN CORPUSCULAR HGB 29.2 pg (27.0-31.0); MEAN CORPUSCULAR HGB CONC 30.6 g/dl (33.0-37.0); MEAN PLATELET VOLUME 11.4 fl (9.6-12.3); MONO # 0.5 10*3/uL (0.1-1.0); MONO % 11.7 % (3.0-9.0); NEUT % 69.3 % (47.0-73.0); PLATELET COUNT AUTOMATED 129 10*3/uL (130-400); RED CELL DISTRI WIDTH 13.5 % (0-14.5); WHITE BLOOD COUNT 4.4 10*3/uL (4.8-10.8)
[2018-03-28 06:35] LABS: ALBUMIN 1.9 gm/dl (3.1-4.5); POTASSIUM 3.5 mmol/L (3.5-5.1)
[2018-03-28 06:37] LABS: CREATININE 3.67 mg/dL (0.70-1.30); PHOSPHOROUS 4.8 mg/dL (2.5-4.9); TOTAL PROTEIN 5.9 gm/dL (6.4-8.2)
[2018-03-28 06:41] LABS: INTERNATIONAL NORM RATIO 1.9 (2.0-3.5)
[2018-03-28 08:00] VITALS: BP 140/76
[2018-03-28 12:00] VITALS: BP 132/68
[2018-03-28 16:00] VITALS: BP 136/56
[2018-03-28 20:00] VITALS: BP 128/54
[2018-03-29] VITALS: BP 141/51
[2018-03-29 06:33] LABS: BASO % 0.4 % (0.0-1.0); EOS % 0.8 % (1.0-4.0); HEMATOCRIT 34.3 % (42.0-52.0); HEMOGLOBIN 10.5 g/dl (14.0-18.0); LYMPH # 0.8 10*3/uL (1.3-4.4); LYMPH % 17.7 % (27.0-41.0); MEAN CELL VOLUME 95.8 fl (80.0-94.0); MEAN CORPUSCULAR HGB 29.3 pg (27.0-31.0); MEAN CORPUSCULAR HGB CONC 30.6 g/dl (33.0-37.0); MEAN PLATELET VOLUME 11.3 fl (9.6-12.3); MONO # 0.6 10*3/uL (0.1-1.0); NEUT # 3.3 10*3/uL (2.3-7.9); NEUT % 68.9 % (47.0-73.0); PLATELET COUNT AUTOMATED 121 10*3/uL (130-400); RED BLOOD COUNT 3.58 10*6/uL (4.50-5.90); RED CELL DISTRI WIDTH 13.6 % (0-14.5); WHITE BLOOD COUNT 4.7 10*3/uL (4.8-10.8)
[2018-03-29 06:47] LABS: CREATININE 3.65 mg/dL (0.70-1.30); POTASSIUM 3.6 mmol/L (3.5-5.1)
[2018-03-29 06:58] LABS: INTERNATIONAL NORM RATIO 2.5 (2.0-3.5)
[2018-03-29 08:30] VITALS: BP 124/60
[2018-03-29 12:00] VITALS: BP 156/58
[2018-03-29 16:00] VITALS: BP 159/58
[2018-03-29 20:00] VITALS: BP 138/50
[2018-03-30] VITALS: BP 130/65
[2018-03-30 06:40] LABS: BASO % 0.2 % (0.0-1.0); HEMATOCRIT 37.4 % (42.0-52.0); HEMOGLOBIN 11.3 g/dl (14.0-18.0); LYMPH # 0.4 10*3/uL (1.3-4.4); LYMPH % 7.9 % (27.0-41.0); MEAN CELL VOLUME 95.7 fl (80.0-94.0); MEAN CORPUSCULAR HGB 28.9 pg (27.0-31.0); MEAN CORPUSCULAR HGB CONC 30.2 g/dl (33.0-37.0); MEAN PLATELET VOLUME 11.4 fl (9.6-12.3); MONO # 0.1 10*3/uL (0.1-1.0); MONO % 2.5 % (3.0-9.0); NEUT # 4.3 10*3/uL (2.3-7.9); NEUT % 89.2 % (47.0-73.0); PLATELET COUNT AUTOMATED 130 10*3/uL (130-400); RED BLOOD COUNT 3.91 10*6/uL (4.50-5.90); RED CELL DISTRI WIDTH 13.4 % (0-14.5); WHITE BLOOD COUNT 4.8 10*3/uL (4.8-10.8)
[2018-03-30 07:07] LABS: ALBUMIN 1.9 gm/dl (3.1-4.5); CREATININE 3.68 mg/dL (0.70-1.30); POTASSIUM 3.9 mmol/L (3.5-5.1); TOTAL PROTEIN 6.3 gm/dL (6.4-8.2); URIC ACID 10.4 mg/dL (3.5-7.2)
[2018-03-30 07:10] LABS: INTERNATIONAL NORM RATIO 2.8 (2.0-3.5)
[2018-03-30 12:00] VITALS: BP 149/58
[2018-03-30 16:00] VITALS: BP 169/70
[2018-03-30 20:00] VITALS: BP 162/64
[2018-03-31] VITALS: BP 164/66
[2018-03-31 06:42] LABS: HEMATOCRIT 38.5 % (42.0-52.0); HEMOGLOBIN 11.6 g/dl (14.0-18.0); LYMPH # 0.3 10*3/uL (1.3-4.4); LYMPH % 7.3 % (27.0-41.0); MEAN CELL VOLUME 95.3 fl (80.0-94.0); MEAN CORPUSCULAR HGB 28.7 pg (27.0-31.0); MEAN CORPUSCULAR HGB CONC 30.1 g/dl (33.0-37.0); MONO # 0.2 10*3/uL (0.1-1.0); MONO % 3.2 % (3.0-9.0); NEUT # 4.2 10*3/uL (2.3-7.9); NEUT % 89.3 % (47.0-73.0); PLATELET COUNT AUTOMATED 132 10*3/uL (130-400); RED BLOOD COUNT 4.04 10*6/uL (4.50-5.90); RED CELL DISTRI WIDTH 13.2 % (0-14.5); WHITE BLOOD COUNT 4.7 10*3/uL (4.8-10.8)
[2018-03-31 06:45] LABS: INTERNATIONAL NORM RATIO 3.9 (2.0-3.5)
[2018-03-31 07:00] LABS: POTASSIUM 4.3 mmol/L (3.5-5.1)
[2018-03-31 07:14] LABS: CREATININE 3.59 mg/dL (0.70-1.30); TOTAL PROTEIN 6.4 gm/dL (6.4-8.2)
[2018-03-31 12:00] VITALS: BP 118/56
[2018-03-31 16:00] VITALS: BP 168/64
[2018-03-31 20:00] VITALS: BP 160/70
[2018-04-01] VITALS: BP 158/80
[2018-04-01 06:29] LABS: BASO % 0.2 % (0.0-1.0); HEMATOCRIT 37.9 % (42.0-52.0); HEMOGLOBIN 11.4 g/dl (14.0-18.0); LYMPH # 0.3 10*3/uL (1.3-4.4); LYMPH % 6.2 % (27.0-41.0); MEAN CELL VOLUME 95.7 fl (80.0-94.0); MEAN CORPUSCULAR HGB 28.8 pg (27.0-31.0); MEAN CORPUSCULAR HGB CONC 30.1 g/dl (33.0-37.0); MEAN PLATELET VOLUME 11.5 fl (9.6-12.3); MONO # 0.2 10*3/uL (0.1-1.0); MONO % 3.6 % (3.0-9.0); NEUT # 4.5 10*3/uL (2.3-7.9); NEUT % 89.6 % (47.0-73.0); PLATELET COUNT AUTOMATED 143 10*3/uL (130-400); RED BLOOD COUNT 3.96 10*6/uL (4.50-5.90); RED CELL DISTRI WIDTH 13.2 % (0-14.5)
[2018-04-01 06:42] LABS: CREATININE 3.59 mg/dL (0.70-1.30); POTASSIUM 3.8 mmol/L (3.5-5.1)
[2018-04-01 06:49] LABS: INTERNATIONAL NORM RATIO 4.5 (2.0-3.5)
[2018-04-01 08:00] VITALS: BP 170/82
[2018-04-01 11:43] VITALS: BP 153/55
[2018-04-01 16:00] VITALS: BP 155/52
[2018-04-01 20:00] VITALS: BP 160/74
[2018-04-02] VITALS: BP 140/84
[2018-04-02 06:23] LABS: INTERNATIONAL NORM RATIO 3.4 (2.0-3.5)
[2018-04-02 08:00] VITALS: BP 184/82
[2018-04-02 12:00] VITALS: BP 176/80
[2018-04-02 16:00] VITALS: BP 190/80; BP 201/82
[2018-04-02 20:00] VITALS: BP 189/77
[2018-04-03] VITALS: BP 189/63
[2018-04-03 05:57] LABS: ALBUMIN 2.1 gm/dl (3.1-4.5); CREATININE 3.42 mg/dL (0.70-1.30); PHOSPHOROUS 3.6 mg/dL (2.5-4.9); POTASSIUM 3.5 mmol/L (3.5-5.1)
[2018-04-03 06:09] LABS: HEMOGLOBIN 12.6 g/dl (14.0-18.0); LYMPH # 0.4 10*3/uL (1.3-4.4); LYMPH % 6.1 % (27.0-41.0); MEAN CELL VOLUME 92.8 fl (80.0-94.0); MEAN CORPUSCULAR HGB 29.2 pg (27.0-31.0); MEAN CORPUSCULAR HGB CONC 31.5 g/dl (33.0-37.0); MEAN PLATELET VOLUME 11.7 fl (9.6-12.3); MONO # 0.3 10*3/uL (0.1-1.0); NEUT # 5.1 10*3/uL (2.3-7.9); NEUT % 88.7 % (47.0-73.0); PLATELET COUNT AUTOMATED 140 10*3/uL (130-400); RED BLOOD COUNT 4.31 10*6/uL (4.50-5.90); RED CELL DISTRI WIDTH 12.9 % (0-14.5); WHITE BLOOD COUNT 5.8 10*3/uL (4.8-10.8)
[2018-04-03 06:14] LABS: INTERNATIONAL NORM RATIO 2.4 (2.0-3.5)
[2018-04-03 08:00] VITALS: BP 182/80
[2018-04-03 12:00] VITALS: BP 182/78
[2018-04-03 16:00] VITALS: BP 174/71
[2018-04-03 20:00] VITALS: BP 152/88
[2018-04-04] VITALS: BP 162/66
[2018-04-04 06:40] LABS: BASO % 0.2 % (0.0-1.0); HEMATOCRIT 41.2 % (42.0-52.0); HEMOGLOBIN 13.1 g/dl (14.0-18.0); LYMPH # 0.7 10*3/uL (1.3-4.4); LYMPH % 11.6 % (27.0-41.0); MEAN CELL VOLUME 91.4 fl (80.0-94.0); MEAN CORPUSCULAR HGB CONC 31.8 g/dl (33.0-37.0); MEAN PLATELET VOLUME 11.8 fl (9.6-12.3); MONO # 0.6 10*3/uL (0.1-1.0); MONO % 8.9 % (3.0-9.0); PLATELET COUNT AUTOMATED 137 10*3/uL (130-400); RED BLOOD COUNT 4.51 10*6/uL (4.50-5.90); RED CELL DISTRI WIDTH 12.9 % (0-14.5); WHITE BLOOD COUNT 6.3 10*3/uL (4.8-10.8)
[2018-04-04 06:51] LABS: INTERNATIONAL NORM RATIO 2.8 (2.0-3.5)
[2018-04-04 07:18] LABS: ALBUMIN 2.3 gm/dl (3.1-4.5); CREATININE 3.67 mg/dL (0.70-1.30); POTASSIUM 3.1 mmol/L (3.5-5.1); TOTAL PROTEIN 6.2 gm/dL (6.4-8.2)
[2018-04-04 08:24] VITALS: BP 156/82
[2018-04-04 12:00] VITALS: BP 134/60
[2018-04-04 16:00] VITALS: BP 181/69
[2018-04-04 20:00] VITALS: BP 176/68
[2018-04-05] VITALS: BP 125/56
[2018-04-05 06:41] LABS: INTERNATIONAL NORM RATIO 3.4 (2.0-3.5)
[2018-04-05 07:11] LABS: POTASSIUM 3.1 mmol/L (3.5-5.1)
[2018-04-05 07:33] LABS: CREATININE 3.72 mg/dL (0.70-1.30)
[2018-04-05 08:00] VITALS: BP 160/80
[2018-04-05 10:41] VITALS: BP 130/60
[2018-04-05 12:00] VITALS: BP 128/57
== END 2018-04-05 15:00 | disposition home health service (06) | DRG 177 ==
LOC: ED 04:16 → 4E 07:37 → ICCU 07:37 → 4E 07:48 → ICCU 03-24 11:44 → 4E 03-27 06:25
PROVIDERS: Family Medicine; Internal Medicine; Internal Medicine Nephrology; Student in an Organized Health Care Education/Training Program
DX: J15.6 Pneumonia due to other Gram-negative bacteria (principal); I50.33 Acute on chronic diastolic (congestive) heart failure; J96.90 Respiratory failure, unspecified, unspecified whether with hypoxia or hypercapnia; I13.0 Hypertensive heart and chronic kidney disease with heart failure and stage 1 through stage 4 chronic kidney disease, or unspecified chronic kidney disease; N18.4 Chronic kidney disease, stage 4 (severe); J44.0 Chronic obstructive pulmonary disease with (acute) lower respiratory infection; R18.8 Other ascites; N25.81 Secondary hyperparathyroidism of renal origin; N17.9 Acute kidney failure, unspecified; I50.9 Heart failure, unspecified; E83.51 Hypocalcemia; K31.84 Gastroparesis; K21.9 Gastro-esophageal reflux disease without esophagitis; E11.22 Type 2 diabetes mellitus with diabetic chronic kidney disease; E78.5 Hyperlipidemia, unspecified; M10.9 Gout, unspecified; E66.01 Morbid (severe) obesity due to excess calories; I25.10 Atherosclerotic heart disease of native coronary artery without angina pectoris; R79.1 Abnormal coagulation profile; R79.81 Abnormal blood-gas level; E11.21 Type 2 diabetes mellitus with diabetic nephropathy; T50.2X5A Adverse effect of carbonic-anhydrase inhibitors, benzothiadiazides and other diuretics, initial encounter; K59.00 Constipation, unspecified; D63.8 Anemia in other chronic diseases classified elsewhere; Y92.238 Other place in hospital as the place of occurrence of the external cause; R31.9 Hematuria, unspecified; N40.0 Benign prostatic hyperplasia without lower urinary tract symptoms; E11.51 Type 2 diabetes mellitus with diabetic peripheral angiopathy without gangrene; E87.6 Hypokalemia; E11.43 Type 2 diabetes mellitus with diabetic autonomic (poly)neuropathy; D69.6 Thrombocytopenia, unspecified; Z86.718 Personal history of other venous thrombosis and embolism; Z87.440 Personal history of urinary (tract) infections; Z87.891 Personal history of nicotine dependence; Z82.49 Family history of ischemic heart disease and other diseases of the circulatory system; Z83.3 Family history of diabetes mellitus; Z83.1 Family history of other infectious and parasitic diseases; Z79.899 Other long term (current) drug therapy

== ENCOUNTER → 2018-05-03 | Outpatient (CLI) | payer OTHER ==
[2018-05-03 14:30] LABS: CREATININE 3.74 mg/dL (0.70-1.30); POTASSIUM 3.9 mmol/L (3.5-5.1)
== END | disposition home or self-care (01) ==
LOC: LAB 13:47
PROVIDERS: Internal Medicine Nephrology
DX: N18.3 Chronic kidney disease, stage 3 (moderate) (principal)

== ENCOUNTER → 2018-07-07 | Outpatient (CLI) | payer MEDICARE ==
[~2018-07-07] MED LIST changes: +DULCOLAX5 M1 PO; +GOOD NEIGHBOR150 MG PO; +METOCLOPRAMIDE10 M1 PO; +POTASSIUM CHLOR8 ME1 PO
== END | disposition home or self-care (01) ==
LOC: RAD 14:28
DX: J90 Pleural effusion, not elsewhere classified (principal)

== ENCOUNTER → 2018-09-12 | Outpatient (CLI) | payer OTHER | END | disposition home or self-care (01) | LOC: RAD 11:16 | DX: J90 Pleural effusion, not elsewhere classified (principal); I11.0 Hypertensive heart disease with heart failure; I50.9 Heart failure, unspecified; E11.9 Type 2 diabetes mellitus without complications; F17.200 Nicotine dependence, unspecified, uncomplicated ==

== ENCOUNTER → 2018-09-20 | Outpatient (CLI) | payer MEDICARE ==
[2018-09-20 13:48] LABS: ALBUMIN 2.8 gm/dl (3.1-4.5); CREATININE 3.76 mg/dL (0.70-1.30); PHOSPHOROUS 3.8 mg/dL (2.5-4.9); POTASSIUM 3.8 mmol/L (3.5-5.1); TOTAL PROTEIN 6.8 gm/dL (6.4-8.2)
[2018-09-20 14:10] LABS: PTH INTACT 87.5 pg/mL (18.5-88.0)
== END | disposition home or self-care (01) ==
LOC: LAB 12:43
PROVIDERS: Internal Medicine Nephrology
DX: E55.9 Vitamin D deficiency, unspecified (principal); D64.9 Anemia, unspecified; N18.4 Chronic kidney disease, stage 4 (severe)

== ENCOUNTER 2018-10-31 15:10 | Inpatient (IN) | payer MEDICARE ==
[~2018-10-31] VITALS: Ht 177.8 cm; Wt 105.2 kg
--- NOTE | ~2018-10-31 | PR ---
[place], [place] PROGRESS NOTE NAME: ALIE CARUSO UNIT #: [id number] ROOM: 425 DOCTOR: ELVA JENSEN MD BIRTHDATE: [birth year] DOS: 11/06/2018 SUBJECTIVE: He is sitting comfortably and is not short of breath, but has oxygen on. He has had no nausea, abdominal pain. Appetite is reasonable. No chest pain or palpitations. Swelling remains pretty much the same. PHYSICAL EXAMINATION: GENERAL: The patient is alert, oriented. Complexion is pale. VITAL SIGNS: Pulse is 64 and regular, blood pressure 122/60. NECK: JVP is normal. AJR is positive. LUNGS: Breath sounds are diminished with lot of crackles bilaterally and there is dullness in the right lower half of the lung field. He has severe edema in both feet. LABORATORY DATA: BUN and creatinine is worsened from yesterday and his fluid balance was -600 mL. IMPRESSION: This patient has volume overload/diastolic heart failure and he is at a stage that he needs hemodialysis. This was discussed with him by Dr. Buck. If renal function deteriorates further. I think we need to back off the loop diuretic dose. ELVA JENSEN MD CM:PNTRANS 1122 [id number] ELVA JENSEN MD 11/07/18 0611 interface
--- NOTE | ~2018-10-31 | PR ---
[place], [place] PROGRESS NOTE NAME: ALIE CARUSO UNIT #: [id number] ROOM: 425 DOCTOR: ELVA JENSEN MD BIRTHDATE: [birth year] DOS: 11/05/2018 SUBJECTIVE: The patient is alert, oriented, sitting in a recliner. He is comfortable. He is not tachypneic. He does not complain of any nausea. Appetite is really good. Swelling in the legs is substantial. No palpitations or chest pain and has not had any abdominal pain. He has been on 80 mg of furosemide every 8 hours and his fluid balance was -750 mL for the last 24 hours and 2 days prior to that it was pretty much even. PHYSICAL EXAMINATION: GENERAL: The patient looks a little pale. VITAL SIGNS: Pulse is 64 and regular, blood pressure 126/52. NECK: JVP is normal. AJR appears to be mildly positive and he has 3-4+ bilateral pedal edema and 2+ pretibial edema. LUNGS: Breath sounds are diminished with substantially bilaterally with dullness in the right lower half of the lung field. LABORATORY DATA: Yesterday, hemoglobin was 10.1 g/dL, today BUN is 48 up from 46, creatinine 4.17 up from 3.91. IMPRESSION: This patient has volume overload and diastolic heart failure and kidneys are somewhat resistant to loop diuretics now and as I discussed with Dr. Buck, the patient need to be prepared for chronic hemodialysis with peritoneal dialysis. ELVA JENSEN MD CM:PNTRANS 1118 25 ELVA JENSEN MD 11/05/182124 interface
--- NOTE | ~2018-10-31 | WRIGHTHP ---
[place], [place] PATIENT HISTORY AND PHYSICAL EXAM NAME: ALIE CARUSO [facility] #: [id number] UNIT #: [id number] ROOM: 425 DOCTOR: NGHIA MALLORY MD BIRTHDATE: [birth year] DOS: 10/31/2018 CHIEF COMPLAINT: Shortness of breath, 4+ pedal edema. HISTORY OF PRESENTING ILLNESS: This is a 73-year-old patient with known history of diastolic congestive heart failure, volume overload and end-stage chronic kidney disease stage 3-4. The patient has been having progressive swelling of the legs and he has not responded to outpatient diuretics, on torsemide and metolazone (Xarelto). The patient at this time is being admitted to the hospital for IV diuresis. The patient is scheduled to get a fistula placed by Dr. Sprague. He follows with Dr. Buck as outpatient for Nephrology. The patient denies any chest pain, but he says that he feels as if his abdomen is bloated and he has acid reflux as well. The patient denies any nausea, denies any vomiting. No diarrhea. Otherwise, 10-point review of systems is negative. The patient told me that he cannot go on like this and something needs to be done. The patient has been admitted multiple times in the past for IV diuresis. PAST MEDICAL HISTORY: Significant for: 1. Diastolic heart failure. 2. Diabetes mellitus type 2 with diabetic nephropathy. 3. Chronic kidney disease stage 3-4. 4. Gastroesophageal reflux disease. 5. Hypertension. 6. Chronic diastolic heart failure. 7. Primary insomnia. 8. Anemia secondary to renal failure and volume overloaded state of heart. 9. The patient has bilateral kidney stones. 10. Hyperlipidemia. His 2D echo done showed ejection fraction of 55% in the past. Cardiac catheterization was done and the patient had mild stenosis of all the arteries (diffuse coronary artery disease). He has also vitamin D deficiency. He has peripheral vascular disease. He has moderate block in both iliofemoral arteries in the past. He has diabetic gastroparesis as well and it was very abnormal study. He had hematuria and had cystoscopy done by Dr. Madison has proteinuria and his baseline EKG shows T-wave changes in the anterior lateral leads. PAST SURGICAL HISTORY: Denies any surgical history. FAMILY HISTORY: Noncontributory. He has 2 brothers and 1 sister. One brother of heart attack. One sister of heart attack, so he lives alone. SOCIAL HISTORY: Nonsmoker, nonalcoholic, no illicit drug use. ALLERGIES: NORVASC causes pedal edema. [place], [place] PATIENT HISTORY AND PHYSICAL EXAM NAME: ALIE CARUSO UNIT #: [id number] ROOM: 425 DOCTOR: NGHIA MALLORY MD BIRTHDATE: [birth year] REVIEW OF SYSTEMS: As in the history of presenting illness. MEDICATIONS: He is on omeprazole 40 mg daily, allopurinol 100 mg daily, vitamin D3 2000 once a day, Lantus 55 units daily, melatonin 3 mg at bedtime, atorvastatin 80 mg daily, Singulair 10 mg daily, Coreg 25 mg b.i.d., torsemide 20 mg 2 tablets b.i.d., Klor-Con 8 mg once a day. He is on Coumadin 5 mg tablet on Tuesday, Tuesday, Tuesday and and he takes 2.5 mg on Tuesday, Tuesday and Tuesday. Lisinopril 40 mg daily, metolazone 5 mg once a day, ferrous sulfate 325 mg daily, hydroxyzine 25 mg q. 8 hours p.r.n. PHYSICAL EXAMINATION: VITAL SIGNS: Blood pressure is 118/58, heart rate is 65, temperature 97.4. His oxygen saturation is 98%. GENERAL: The patient is in mild distress. He is short of breath even when he talks. HEENT: Head: Normocephalic, atraumatic. Eyes: Pupils equal, round, reactive to light. Extraocular movements are intact. Ear, nose, and throat: No discharge noted. NECK: No JVD, no lymphadenopathy, no thyromegaly. CHEST: Clinically clear to auscultation bilaterally. HEART: S1, S2, regular rate and rhythm. No murmur, gallop or rub. LUNGS: Lungs are showing decreased breath sounds. ABDOMEN: Soft, nontender, maybe distended secondary to fat. EXTREMITIES: 4+ pedal edema. NEUROLOGIC: No focal deficit. ASSESSMENT: At this time; 1. Diastolic congestive heart failure with volume overload. We will start IV diuresis, Lasix 40 mg IV twice a day, get BMP, CMP, CBC with diff. 2. Diabetes mellitus type 2. We will get hemoglobin A1c. Monitor the blood sugars. Continue home insulin treatment. 3. Chronic kidney disease. We will consult Dr. Buck who follows him as outpatient. 4. Hypertension, which is controlled at this time. 5. Gastroesophageal reflux disease. We will continue omeprazole. 6. Vitamin D deficiency. 7. Hyperlipidemia. 8. History of hematuria in the past. PLAN OF CARE: 1. Continue all home medications. 2. IV diuresis. 3. Daily weight. 4. We will continue to follow the patient in the morning. [place], [place] PATIENT HISTORY AND PHYSICAL EXAM NAME: ALIE CARUSO UNIT #: [id number] ROOM: 425 DOCTOR: NGHIA MALLORY MD BIRTHDATE: [birth year] NGHIA MALLORY MD CM:HISPHYS:PATIENT HISTORY AND PHYSICAL EXAMINATION 1604 1627 NGHIA MALLORY MD 11/01/18 1612 interface
--- NOTE | ~2018-10-31 | EKG ---
[place], [place] ELECTROCARDIOGRAM REPORT NAME: ALIE CARUSO UNIT #: [id number] ROOM: 425 DOCTOR: JOANNA DRAFT REPORT BIRTHDATE: [birth year] [facility] Test Date: 2018-11-01 Test Time: 13:23:55 Pat Name: ALIE CARUSO Department: Room: 425 1 Gender: M Pocket Builder: : 1945 Requested By: JOAN AGUILERA Order Number: [id number] Reading MD: Jose Li MD Measurements Intervals [place] Rate: 56 P: MD: QRS: 11 QRSD: 84 T: 86 QT: 485 QTc: 469 Interpretive Statements Sinus rhythm Flattened T waves in V4-6, I and aVL Compared to ECG 03/24/2018 13:00:04 Prolonged QT interval no longer present Electronically Signed On 11-06-2018 7:53:53 PDT by Jose Li MD CM:EKGRPT:ELECTROCARDIOGRAM REPORT 1323 0753 JOAN MARSHALL DRAFT REPORT JOAN AGUILERA
--- NOTE | ~2018-10-31 | PR ---
[place], [place] PROGRESS NOTE NAME: ALIE CARUSO UNIT #: [id number] ROOM: 425 DOCTOR: EVELIA NUNEZ MD BIRTHDATE: [birth year] DOS: 11/07/2018 SUBJECTIVE: A 24-hour events noted. Discussed with the nursing staff. The patient continues to diurese. He is negative 1.3 liters again today. Repeat creatinine is pending today. The last creatinine is 4.5. He is on oxygen, does not look to be in acute distress, hemodynamically stable. Denies any chest discomfort or shortness of breath. Hemodynamically stable. REVIEW OF SYSTEMS: A 6-8 systems reviewed as per HPI, stable. HEAD, EYES, EARS, NOSE, AND THROAT: Unremarkable. NECK: Supple, no JVD. LUNGS: Diminished air entry with heart sounds are regular. EXTREMITIES: About 2+ edema. NEUROLOGIC: Stable. LABORATORY DATA: As mentioned creatinine is elevated. IMPRESSION: [id number]-aegydav congestive heart failure, volume overload, acute on chronic renal failure, diabetes mellitus, hypertension, and hyperlipidemia. RECOMMENDATIONS: Monitor the creatinine very closely. Probably decrease the diuretics because of the creatinine creeping up. The patient may end up with dialysis. Nephrology consultation is warranted if it is not done and we will follow up. EVELIA NUNEZ MD CM:PNTRANS 0723 1139 EVELIA NUNEZ MD 11/07/18 1138 interface
--- NOTE | ~2018-10-31 | PR ---
[place], [place] PROGRESS NOTE NAME: ALIE CARUSO UNIT #: [id number] ROOM: 425 DOCTOR: ELVA JENSEN MD BIRTHDATE: [birth year] DOS: 11/02/2018 SUBJECTIVE: He is mildly short of breath. He does not complain of any chest pain or palpitations and no pain, aching in the legs. He has no cough or fever and does not have any dizziness or loss of consciousness. He is on fair amount of furosemide and I's and O's have been very much even for the last 2 days. PHYSICAL EXAMINATION: GENERAL: The patient is alert, a little pale. VITAL SIGNS: Pulse is 60, blood pressure 126/46. NECK: JVP is +6 cm with a positive AJR. He has 1-2+ edema in lower extremities. RESPIRATORY: Breaths are diminished with crackles bilaterally. LABORATORY DATA: Chest x-ray was done today and was read as showing a moderate right and small left pleural effusion. Creatinine is 4.01, up from 3.79 yesterday. BUN is 42, up from 40 yesterday. IMPRESSION: This patient has diastolic heart failure and is near end-stage renal disease. I discussed the issues with Dr. Buck and we have decided to be more aggressive with diuretics to see if fluids can be unloaded. He is on lisinopril, which is being discontinued as it may impact renal function. ELVA JENSEN MD CM:PNTRANS 1214 1547 ELVA JENSEN MD 11/02/18 1546 interface
--- NOTE | ~2018-10-31 | CON ---
[place], [place] REPORT OF CONSULTATION NAME: ALIE CARUSO UNIT #: [id number] ROOM: 425 DOCTOR: ELVA JENSEN MD BIRTHDATE: [birth year] DOS: 11/01/2018 HISTORY OF PRESENT ILLNESS: This is a 73-year-old gentleman who is a and has been to [facility] for his care. Last time he was there was in July of last year. He was admitted to the hospital last year with diastolic heart failure. He had normal LV systolic function with ejection fraction of 60%. He has chronic kidney disease stage IV and COPD, although he quit smoking in 1993. He had a deep venous thrombosis of the right upper limb and has been on warfarin since that time, essential hypertension, type 2 diabetes mellitus, diabetic gastroparesis, GERD, hyperlipidemia. He has had thoracentesis, adenoidectomy and tonsillectomy in the past. He was admitted to the hospital from Dr. Garcia's office where he was found to be in heart failure. He has been complaining of increasing shortness of breath over the last 2-3 weeks, but no fever or chills or much of a cough. He does not have any palpitations. Did not pass out. He has had swelling in the legs that probably has been getting worse. He sleeps in the recliner, he gets short of breath when he is lying flat. HOME MEDICATIONS: Include allopurinol, carvedilol 25 b.i.d., cholecalciferol, lisinopril 20 daily, melatonin 3 mg at bedtime, metoclopramide 10 mg b.i.d., Singulair 10 mg daily, omeprazole 40 mg daily, potassium 8 mEq daily, terazosin 10 mg at bedtime, torsemide 40 mg b.i.d., warfarin 2.5 mg daily alternating with 5 mg, atorvastatin 40 mg daily. PHYSICAL EXAMINATION: GENERAL: This reveals a patient who is alert, oriented, comfortable. His complexion is little pale, but he is not diaphoretic. There is no thyromegaly or finger clubbing. He is not cyanotic, not jaundiced. CARDIOVASCULAR SYSTEM: Pulse is regular at 60 beats per minute, blood pressure 158/74. JVP is about 6 cm with definitely positive AJR. No carotid bruits are present. There is no cardiomegaly and there are no murmurs. Heart rate is regular. He has 2+ pretibial edema and 3-4+ bipedal edema. RESPIRATORY: He is not tachypneic, but dullness is present in the lower zones, more so on the right side with reduced breath sounds and crackles in both lungs. ABDOMEN: Bowel sounds are normal, supple and nontender. However, liver is may be 8-10 cm below costal margin, it is not tender. LABORATORY DATA: No ECG is available, but the monitor strips showed normal sinus with a heart rate in the 60s. Chest x-ray demonstrated bilateral pleural effusions with mild pulmonary edema. LABORATORY DATA: Hemoglobin 10.2 g/dL, MCV 98. BUN is 40, creatinine 3.79. It was 3.97 yesterday. Potassium 3.6. Serum albumin 2.7 g/dL. IMPRESSION: 1. This patient has some degree of volume overload and I think this is likely to be due to acute on chronic diastolic heart failure. He has fairly advanced renal insufficiency that may be contributing to this. [place], [place] REPORT OF CONSULTATION NAME: ALIE CARUSO UNIT #: [id number] ROOM: 425 DOCTOR: ELVA JENSEN MD BIRTHDATE: [birth year] 2. Coronary artery disease. He tells me that I performed a heart catheterization on him many years ago and I told him coronaries were okay, so I will try to get the report from [facility]. 3. Chronic kidney disease is fairly advanced, with a GFR of 50 mL per minute. RECOMMENDATIONS: IV furosemide should be used in doses that would produce negative fluid balance while monitoring renal function. An echocardiogram has been ordered and I will review this once it has been completed. He has moderate anemia. This is related to kidney disease. I thank you for this consult. ELVA JENSEN MD CM:CONSTR:REPORT OF CONSULTATION 1124 12/07/18 0751 interface
[~2018-10-31 15:10] MED LIST changes: -DULCOLAX5 M1 PO; -GOOD NEIGHBOR150 MG PO; -METOCLOPRAMIDE10 M1 PO; -POTASSIUM CHLOR8 ME1 PO
[2018-10-31 15:30] VITALS: BP 151/56
[2018-10-31] MEDS ORDERED: ALLOPURINOL100 MG PO (15:57)
[2018-10-31 16:00] VITALS: BP 151/56
[2018-10-31] MEDS ORDERED: POTASSIUM CHLOR8 ME1 PO (16:07)
[2018-10-31] MEDS ORDERED: METOCLOPRAMIDE10 M1 PO (16:09)
[2018-10-31 16:53] LABS: BILIRUBIN NEGATIVE (NEGATIVE); BLOOD TRACE-INTACT (NEGATIVE); CLARITY CLEAR (CLEAR); COLOR YELLOW (YELLOW); GLUCOSE NEGATIVE (NEGATIVE); KETONE NEGATIVE (NEGATIVE); LEUKO ESTERASE NEGATIVE (NEGATIVE); NITRITE NEGATIVE (NEGATIVE); PH 5.5 (5.0-9.0); UROBILINOGEN 0.2 E.U./dl (0.2-1.0)
[2018-10-31 16:59] LABS: BACTERIA 1+; HYALINE CAST 0-2; RBC 0-2 rbc/hpf (0-2)
[2018-10-31 17:05] LABS: ALBUMIN 2.7 gm/dl (3.1-4.5); CREATININE 3.97 mg/dL (0.70-1.30); POTASSIUM 3.3 mmol/L (3.5-5.1); TOTAL PROTEIN 6.6 gm/dL (6.4-8.2); URIC ACID 6.9 mg/dL (3.5-7.2)
[2018-10-31 17:13] LABS: THYROID STIM HORMONE (HS) 1.43 uIU/ml (0.358-4.75)
[2018-10-31 20:00] VITALS: BP 183/76
[2018-11-01] VITALS: BP 158/74
[2018-11-01 08:03] LABS: BASO % 0.5 % (0.0-1.0); EOS # 0.1 10*3/uL (0.0-0.4); EOS % 3.1 % (1.0-4.0); HEMATOCRIT 33.6 % (42.0-52.0); HEMOGLOBIN 10.2 g/dl (14.0-18.0); LYMPH # 0.9 10*3/uL (1.3-4.4); LYMPH % 22.4 % (27.0-41.0); MEAN CORPUSCULAR HGB 29.7 pg (27.0-31.0); MEAN CORPUSCULAR HGB CONC 30.4 g/dl (33.0-37.0); MONO # 0.4 10*3/uL (0.1-1.0); MONO % 10.9 % (3.0-9.0); NEUT # 2.4 10*3/uL (2.3-7.9); NEUT % 63.1 % (47.0-73.0); PLATELET COUNT AUTOMATED 116 10*3/uL (130-400); RED BLOOD COUNT 3.43 10*6/uL (4.50-5.90); RED CELL DISTRI WIDTH 13.6 % (0-14.5); WHITE BLOOD COUNT 3.8 10*3/uL (4.8-10.8)
[2018-11-01 08:28] LABS: CREATININE 3.79 mg/dL (0.70-1.30); POTASSIUM 3.6 mmol/L (3.5-5.1)
[2018-11-01 08:33] LABS: INTERNATIONAL NORM RATIO 1.9 (2.0-3.5)
[2018-11-01 12:00] VITALS: BP 162/70
[2018-11-01 16:00] VITALS: BP 129/50
[2018-11-01 20:00] VITALS: BP 153/71
[2018-11-02] VITALS: BP 119/49
[2018-11-02 06:27] LABS: BASO % 0.5 % (0.0-1.0); EOS # 0.3 10*3/uL (0.0-0.4); EOS % 6.6 % (1.0-4.0); HEMATOCRIT 32.9 % (42.0-52.0); HEMOGLOBIN 9.9 g/dl (14.0-18.0); LYMPH # 0.9 10*3/uL (1.3-4.4); LYMPH % 23.1 % (27.0-41.0); MEAN CORPUSCULAR HGB 30.1 pg (27.0-31.0); MEAN CORPUSCULAR HGB CONC 30.1 g/dl (33.0-37.0); MEAN PLATELET VOLUME 12.1 fl (9.6-12.3); MONO # 0.5 10*3/uL (0.1-1.0); MONO % 11.9 % (3.0-9.0); NEUT # 2.3 10*3/uL (2.3-7.9); NEUT % 57.6 % (47.0-73.0); PLATELET COUNT AUTOMATED 111 10*3/uL (130-400); RED BLOOD COUNT 3.29 10*6/uL (4.50-5.90); RED CELL DISTRI WIDTH 13.5 % (0-14.5); RETICULOCYTE % 0.83 % (0.50-2.50); WHITE BLOOD COUNT 3.9 10*3/uL (4.8-10.8)
[2018-11-02 06:30] LABS: CREATININE 4.01 mg/dL (0.70-1.30)
[2018-11-02 08:38] LABS: INTERNATIONAL NORM RATIO 2.5 (2.0-3.5)
[2018-11-02 09:56] VITALS: BP 126/46
[2018-11-02 12:00] VITALS: BP 124/44
[2018-11-02 16:00] VITALS: BP 137/48
[2018-11-02 20:00] VITALS: BP 155/66
[2018-11-03] VITALS: BP 136/56
[2018-11-03 07:33] LABS: INTERNATIONAL NORM RATIO 2.6 (2.0-3.5)
[2018-11-03 08:00] VITALS: BP 174/81
[2018-11-03 12:00] VITALS: BP 114/52
[2018-11-03 16:00] VITALS: BP 140/54
[2018-11-03 20:00] VITALS: BP 137/56; BP 160/68
[2018-11-04] VITALS: BP 148/58
[2018-11-04 05:03] LABS: TOTAL PROTEIN, SERUM 5.8 g/dL (6.0-8.5)
[2018-11-04 06:04] LABS: BASO % 0.5 % (0.0-1.0); EOS # 0.3 10*3/uL (0.0-0.4); EOS % 5.9 % (1.0-4.0); HEMATOCRIT 34.1 % (42.0-52.0); HEMOGLOBIN 10.1 g/dl (14.0-18.0); LYMPH # 0.9 10*3/uL (1.3-4.4); LYMPH % 19.1 % (27.0-41.0); MEAN CELL VOLUME 98.3 fl (80.0-94.0); MEAN CORPUSCULAR HGB 29.1 pg (27.0-31.0); MEAN CORPUSCULAR HGB CONC 29.6 g/dl (33.0-37.0); MEAN PLATELET VOLUME 12.2 fl (9.6-12.3); MONO # 0.5 10*3/uL (0.1-1.0); MONO % 10.1 % (3.0-9.0); NEUT # 2.9 10*3/uL (2.3-7.9); NEUT % 64.2 % (47.0-73.0); PLATELET COUNT AUTOMATED 120 10*3/uL (130-400); RED BLOOD COUNT 3.47 10*6/uL (4.50-5.90); RED CELL DISTRI WIDTH 13.5 % (0-14.5); WHITE BLOOD COUNT 4.4 10*3/uL (4.8-10.8)
[2018-11-04 06:31] LABS: POTASSIUM 3.7 mmol/L (3.5-5.1)
[2018-11-04 06:32] LABS: CREATININE 3.91 mg/dL (0.70-1.30)
[2018-11-04 06:53] LABS: INTERNATIONAL NORM RATIO 2.8 (2.0-3.5)
[2018-11-04 07:07] LABS: HEPATITIS B SURFACE AG Negative (Negative); HEPATITIS C VIRUS ANTIBODY <0.1 s/co (0.0-0.9)
[2018-11-04 08:00] VITALS: BP 134/58
[2018-11-04 08:09] LABS: CREATININE,URINE 92.3 mg/dL (Not Estab.); MICRO ALBUMIN/CRE RATIO 1001.6 (0.0-30.0)
[2018-11-04 12:00] VITALS: BP 116/50
[2018-11-04 16:00] VITALS: BP 138/56
[2018-11-04 20:00] VITALS: BP 140/70
[2018-11-05] VITALS: BP 130/50
[2018-11-05 06:34] LABS: CREATININE 4.17 mg/dL (0.70-1.30); POTASSIUM 3.6 mmol/L (3.5-5.1)
[2018-11-05 07:01] LABS: INTERNATIONAL NORM RATIO 2.7 (2.0-3.5)
[2018-11-05 08:00] VITALS: BP 122/58; BP 126/52
[2018-11-05 12:00] VITALS: BP 120/52
[2018-11-05 16:00] VITALS: BP 110/51
[2018-11-05 20:00] VITALS: BP 137/47
[2018-11-06] VITALS: BP 126/44
[2018-11-06 06:15] LABS: CREATININE 4.59 mg/dL (0.70-1.30); POTASSIUM 3.6 mmol/L (3.5-5.1)
[2018-11-06 08:00] VITALS: BP 122/60
[2018-11-06 12:00] VITALS: BP 127/50
[2018-11-06 13:07] LABS: A/G RATIO 0.9 (0.7-1.7); ALBUMIN 2.8 g/dL (2.9-4.4); ALPHA-1-GLOBULIN 0.2 g/dL (0.0-0.4); ALPHA-2-GLOBULIN 0.5 g/dL (0.4-1.0); BETA GLOBULIN 0.9 g/dL (0.7-1.3); GAMMA GLOBULIN 1.4 g/dL (0.4-1.8); M-SPIKE Not Observed g/dL (Not Observed)
[2018-11-06 16:00] VITALS: BP 147/57
[2018-11-06 20:00] VITALS: BP 167/70
[2018-11-07] VITALS: BP 126/45
[2018-11-07 07:30] LABS: POTASSIUM 3.5 mmol/L (3.5-5.1)
[2018-11-07 07:47] LABS: CREATININE 4.57 mg/dL (0.70-1.30); PHOSPHOROUS 3.9 mg/dL (2.5-4.9)
[2018-11-07 08:00] VITALS: BP 138/60
[2018-11-07 12:00] VITALS: BP 125/42
== END 2018-11-07 14:18 | disposition home or self-care (01) | DRG 291 ==
LOC: 4E 15:10
PROVIDERS: Internal Medicine; Internal Medicine Nephrology; ADMIT Internal Medicine
DX: I13.2 Hypertensive heart and chronic kidney disease with heart failure and with stage 5 chronic kidney disease, or end stage renal disease (principal); N17.0 Acute kidney failure with tubular necrosis; E43 Unspecified severe protein-calorie malnutrition; I50.33 Acute on chronic diastolic (congestive) heart failure; N18.6 End stage renal disease; D61.818 Other pancytopenia; I25.10 Atherosclerotic heart disease of native coronary artery without angina pectoris; R79.1 Abnormal coagulation profile; R79.81 Abnormal blood-gas level; K21.9 Gastro-esophageal reflux disease without esophagitis; E78.5 Hyperlipidemia, unspecified; E11.51 Type 2 diabetes mellitus with diabetic peripheral angiopathy without gangrene; M10.9 Gout, unspecified; E66.9 Obesity, unspecified; N40.0 Benign prostatic hyperplasia without lower urinary tract symptoms; D64.9 Anemia, unspecified; R31.9 Hematuria, unspecified; R00.1 Bradycardia, unspecified; E11.22 Type 2 diabetes mellitus with diabetic chronic kidney disease; E11.65 Type 2 diabetes mellitus with hyperglycemia; E87.6 Hypokalemia; E83.51 Hypocalcemia; Z79.4 Long term (current) use of insulin; Z87.442 Personal history of urinary calculi; Z82.49 Family history of ischemic heart disease and other diseases of the circulatory system; Z88.8 Allergy status to other drugs, medicaments and biological substances; Z87.891 Personal history of nicotine dependence; Z86.718 Personal history of other venous thrombosis and embolism; Z79.01 Long term (current) use of anticoagulants; Z83.1 Family history of other infectious and parasitic diseases; Z79.899 Other long term (current) drug therapy; Z68.34 Body mass index [BMI] 34.0-34.9, adult

== ENCOUNTER → 2018-11-28 | Outpatient (CLI) | payer MEDICARE ==
[~2018-11-28] MED LIST changes: +DULCOLAX5 M1 PO; +GOOD NEIGHBOR150 MG PO; +METOCLOPRAMIDE10 M1 PO; +POTASSIUM CHLOR8 ME1 PO
[2018-11-28 12:10] LABS: CREATININE 3.71 mg/dL (0.70-1.30); POTASSIUM 3.4 mmol/L (3.5-5.1)
== END | disposition home or self-care (01) ==
LOC: LAB 10:25
PROVIDERS: Internal Medicine Nephrology
DX: N18.4 Chronic kidney disease, stage 4 (severe) (principal)

== ENCOUNTER 2018-11-29 10:19 | Inpatient (IN) | payer MEDICARE ==
[~2018-11-29] VITALS: Ht 177.8 cm; Wt 100.4 kg
[~2018-11-29 10:19] MED LIST changes: -DULCOLAX5 M1 PO; -GOOD NEIGHBOR150 MG PO
[2018-11-29 10:48] VITALS: BP 192/84
[2018-11-29] MEDS ORDERED: DULCOLAX5 M1 PO (10:55)
--- NOTE | 2018-11-29 11:00 | NUR ---
A 73, admitted to 5E, under the services of NGHIA Ford MD with a diagnosis of DYSPNEA, PLEURAL EFFUSION, HEMODIALYSIS. Chief complaint is SHORTNESS OF BREATH AND SWELLING. Patient arrived via wheel chair from [place]. Monitor applied. Initial assessment completed. Vital signs taken and recorded. NGHIA FORD MD notified of admission to the unit. Orders received. See assessment for past medical history, medications and allergies. Patient and/or family oriented to unit. [address] visitation policy reviewed. Clothing/patient valuable form completed. ELLIE ALEJANDRO
[2018-11-29 11:47] LABS: BASO % 0.3 % (0.0-1.0); EOS % 0.3 % (1.0-4.0); HEMATOCRIT 35.4 % (42.0-52.0); HEMOGLOBIN 10.6 g/dl (14.0-18.0); LYMPH # 0.7 10*3/uL (1.3-4.4); LYMPH % 17.7 % (27.0-41.0); MEAN CELL VOLUME 99.2 fl (80.0-94.0); MEAN CORPUSCULAR HGB 29.7 pg (27.0-31.0); MEAN CORPUSCULAR HGB CONC 29.9 g/dl (33.0-37.0); MEAN PLATELET VOLUME 11.6 fl (9.6-12.3); MONO # 0.4 10*3/uL (0.1-1.0); MONO % 9.2 % (3.0-9.0); NEUT # 2.8 10*3/uL (2.3-7.9); NEUT % 72.5 % (47.0-73.0); PLATELET COUNT AUTOMATED 128 10*3/uL (130-400); RED BLOOD COUNT 3.57 10*6/uL (4.50-5.90); RED CELL DISTRI WIDTH 13.8 % (0-14.5); WHITE BLOOD COUNT 3.9 10*3/uL (4.8-10.8)
[2018-11-29 11:59] LABS: ALBUMIN 2.9 gm/dl (3.1-4.5); CREATININE 3.73 mg/dL (0.70-1.30); PHOSPHOROUS 3.3 mg/dL (2.5-4.9); POTASSIUM 3.4 mmol/L (3.5-5.1)
[2018-11-29 16:00] VITALS: BP 167/66
[2018-11-29 20:00] VITALS: BP 159/65
--- NOTE | 2018-11-29 22:10 | NUR ---
SPOKE WITH DR. OLSON AT THIS TIME, PATIENT REQUESTING SLEEPING PILL AND TAKES MELATONIN AT HOME, SHE STATED SHE WOULD PUT IN RESTORIL. ALSO STATED THAT PATIENT NEVER HAD AN INR DRAWN TODAY AND 2.5MG OF COUMADIN WAS ORDERED. SHE STATED SHE WOULD PUT IN FOR A LAB FOR NOW
[2018-11-29 22:45] LABS: INTERNATIONAL NORM RATIO 1.4 (2.0-3.5)
[2018-11-30] VITALS: BP 146/69
--- NOTE | 2018-11-30 07:27 | NUR ---
24 HR chart check completed.
--- NOTE | 2018-11-30 07:45 | NUR ---
Patient resting quietly with no c/o discomfort. Respirations easy and regular. Vital signs stable. No overt distress. ELLIE ALEJANDRO
[2018-11-30 08:00] VITALS: BP 129/55
--- NOTE | 2018-11-30 08:30 | NUR ---
PT IN DIALYSIS.
[2018-11-30 08:45] LABS: BASO % 0.3 % (0.0-1.0); EOS % 0.3 % (1.0-4.0); LYMPH # 0.7 10*3/uL (1.3-4.4); LYMPH % 18.4 % (27.0-41.0); MEAN CORPUSCULAR HGB 29.6 pg (27.0-31.0); MEAN PLATELET VOLUME 12.2 fl (9.6-12.3); MONO # 0.4 10*3/uL (0.1-1.0); MONO % 9.9 % (3.0-9.0); NEUT # 2.5 10*3/uL (2.3-7.9); NEUT % 70.8 % (47.0-73.0); PLATELET COUNT AUTOMATED 90 10*3/uL (130-400); RED BLOOD COUNT 3.04 10*6/uL (4.50-5.90); WHITE BLOOD COUNT 3.5 10*3/uL (4.8-10.8)
[2018-11-30 08:59] LABS: ALBUMIN 2.5 gm/dl (3.1-4.5); CREATININE 3.62 mg/dL (0.70-1.30); PHOSPHOROUS 4.8 mg/dL (2.5-4.9); POTASSIUM 4.1 mmol/L (3.5-5.1); TOTAL PROTEIN 6.2 gm/dL (6.4-8.2)
--- NOTE | 2018-11-30 09:00 | NUR ---
Configuration Analyst in to see patient. He is not in his room he is in the dialysis room. Will follow up at a later time. Discharge plan undecided at this time.
--- NOTE | 2018-11-30 10:00 | NUR ---
FAMILY PHONED IN AND UPDATED ON POC.
--- NOTE | 2018-11-30 12:04 | NUR ---
Patient remains in dialysis. Will follow up at a later time. Discharge plan undecided at this time.
--- NOTE | 2018-11-30 12:50 | NUR ---
Police Service Technician in to talk to patient. Patient states lives at home with his granddaughter. There are 15 steps in the home. Physician: Dr. Delbert Garcia Pharmacy: [facility] Home health services: none Patient's level of ADLs: INDEPENDENT Patient has working utilities: yes DME: none Follow-up physician's appointment after d/c: he prefers to make his own follow up appt after discharge Does patient want to access PORTAL?: no Discharge plan discussed with patient. He lives at home with his granddaughter. He is independent in his ADLs and ambulation. Discussed home health care services and he denies any home needs at this time. Discussed outpatient dialysis. Informed patient his insurance will cover [facility] [place] in [place] or [facility] in [place]. Patient states he doesn't drive that far. Discussed other transportation such as family or [facility]. He questioned how much [facility] would be. He states he has his granddaughter that lives with him but "she has to work too." animal care service worker notified and will reach out to patient's insurance. Discharge plan undecided at this time. KEVIN MONTEIRO
--- NOTE | 2018-11-30 13:34 | NUR ---
PEDRO PABLO reached out to the Patients insurance to confirm Dailysis coverage. Per conversation today Treva at [facility] stated that the patient nearest facility would be [facility] in [place], [place]. On Tuesday, a technical sales representative stated an addtional facilty, [facility] in [place], [place] would be covered as well. Dario DIANEDanilo is out of Network. The patient does not have any Out of Network Benefits. The patient does have transportation benefits and would have to call 24 hrs in advance to schedule pickup/drop off times. Call Ref# [id number]. -PEDRO PABLO Godoy
--- NOTE | 2018-11-30 14:25 | NUR ---
Spoke to patient regarding dialysis at [facility] and his insurance would be able to provide transportation for him to and from dialysis. He states he is not willing to go to [facility] three days a week. Explained [facility] is not covered by his insurance as he has no out of network benefits. Discussed even if his insurance covered dialysis at [facility], how would he get to his appointments, he is unable to answer what his transportation would be as he lives with his granddaughter who works. Notified Dr. Buck. and Dr. Buck will speak to patient again regarding dialysis in the morning.
[2018-11-30 16:00] VITALS: BP 110/42
--- NOTE | 2018-11-30 16:00 | NUR ---
Patient resting quietly with no c/o discomfort. Respirations easy and regular. Vital signs stable. No overt distress. ELLIE ALEJANDRO
[2018-11-30 20:00] VITALS: BP 113/48
[2018-12-01] VITALS: BP 125/57
[2018-12-01 06:35] LABS: BASO % 0.2 % (0.0-1.0); EOS % 0.7 % (1.0-4.0); HEMOGLOBIN 9.1 g/dl (14.0-18.0); LYMPH # 0.6 10*3/uL (1.3-4.4); LYMPH % 14.6 % (27.0-41.0); MEAN CELL VOLUME 103.6 fl (80.0-94.0); MEAN CORPUSCULAR HGB 29.4 pg (27.0-31.0); MEAN CORPUSCULAR HGB CONC 28.4 g/dl (33.0-37.0); MEAN PLATELET VOLUME 12.1 fl (9.6-12.3); MONO # 0.4 10*3/uL (0.1-1.0); MONO % 8.4 % (3.0-9.0); NEUT # 3.3 10*3/uL (2.3-7.9); NEUT % 75.6 % (47.0-73.0); PLATELET COUNT AUTOMATED 63 10*3/uL (130-400); RED BLOOD COUNT 3.09 10*6/uL (4.50-5.90); RED CELL DISTRI WIDTH 13.9 % (0-14.5); WHITE BLOOD COUNT 4.3 10*3/uL (4.8-10.8)
[2018-12-01 07:02] LABS: CREATININE 4.04 mg/dL (0.70-1.30); INTERNATIONAL NORM RATIO 1.5 (2.0-3.5); PHOSPHOROUS 5.1 mg/dL (2.5-4.9); POTASSIUM 4.6 mmol/L (3.5-5.1)
[2018-12-01 08:00] VITALS: BP 122/49
[2018-12-01 12:00] VITALS: BP 109/53
--- NOTE | 2018-12-01 14:00 | NUR ---
Construction Stonemason in to see patient. He is agreeable to [facility] in [place]. He states he doesn't have transportation. Transportation will be difficult to set up he lives in [facility] [facility] and the dialysis clinic is in [facility]. facility maintenance worker following. Attempted to reach out to his brother, Felix, at [phone] with no success, no voicemail.
--- NOTE | 2018-12-01 14:29 | NUR ---
HOUSING MANAGEMENT OFFICER reached out to patients Insurance to confirm the information given yesterday that [facility] is in network for the patient and that he does have a transportation with his policy. After speaking with Timoteo (Ref#[id number]) it was determined that [facility] was in network and that the patient DOES NOT have tranportation coverage after the previous call was review. HOUSING MANAGEMENT OFFICER reached out to [facility] and found that it is no longer under that name. The address and phone number go to [facility]. HOUSING MANAGEMENT OFFICER called the patient insurance back to confirm that [facility] is in network. HOUSING MANAGEMENT OFFICER spoke with [facility] (Ref#[id number]) HOUSING MANAGEMENT OFFICER was informed it is NOT in network with the patients insurance. HOUSING MANAGEMENT OFFICER and Sandblast Operator Roxie reached out [facility]. They do not provide transportation. HOUSING MANAGEMENT OFFICER left a message for [facility] to get a quote on the cost for the patient. -PEDRO PABLO Godoy
--- NOTE | 2018-12-01 14:31 | NUR ---
Spoke to Margaret at [facility], , regarding setting up a new referral. Faxing new referral documentation.
--- NOTE | 2018-12-01 14:35 | NUR ---
Spoke to patient regarding [facility] now known as [facility] not being in network with his insurance. Discussed his only option at this time is [facility] [place]. Patient states "I've never been to [place] before." Discussed social insurance adviser working on setting up transportation. Patient brought up [employer]. green end worker awaiting return call from [employer] for cost.
--- NOTE | 2018-12-01 15:04 | NUR ---
Completed and faxed new referral to [facility]. Awaiting response. Spoke to Dr. Garcia in regards to continue working on dialysis set up and transportation. Discussed with patient insurance.
--- NOTE | 2018-12-01 15:30 | NUR ---
REPORT RECIEVED FROM ZOYA PATTON. INITIAL ASSESSMENT COMPLETE.RESPS EASY ON 2LNC. VOICES NO NEEDS. ALARM INTACT. CALL LIGHT IN REACH.
[2018-12-01 16:00] VITALS: BP 149/51
[2018-12-01 20:00] VITALS: BP 116/43
[2018-12-02] VITALS: BP 120/50
--- NOTE | 2018-12-02 03:26 | NUR ---
24 HR chart check completed.
--- NOTE | 2018-12-02 04:06 | NUR ---
24 HR chart check completed.
[2018-12-02 06:17] LABS: EOS % 0.4 % (1.0-4.0); HEMATOCRIT 31.5 % (42.0-52.0); LYMPH # 0.7 10*3/uL (1.3-4.4); LYMPH % 14.4 % (27.0-41.0); MEAN CELL VOLUME 103.3 fl (80.0-94.0); MEAN CORPUSCULAR HGB 29.5 pg (27.0-31.0); MEAN CORPUSCULAR HGB CONC 28.6 g/dl (33.0-37.0); MEAN PLATELET VOLUME 12.4 fl (9.6-12.3); MONO # 0.4 10*3/uL (0.1-1.0); MONO % 7.5 % (3.0-9.0); NEUT # 3.6 10*3/uL (2.3-7.9); NEUT % 77.5 % (47.0-73.0); PLATELET COUNT AUTOMATED 63 10*3/uL (130-400); RED BLOOD COUNT 3.05 10*6/uL (4.50-5.90); RED CELL DISTRI WIDTH 13.9 % (0-14.5); WHITE BLOOD COUNT 4.7 10*3/uL (4.8-10.8)
[2018-12-02 06:31] LABS: POTASSIUM 4.2 mmol/L (3.5-5.1)
[2018-12-02 06:36] LABS: CREATININE 4.11 mg/dL (0.70-1.30)
[2018-12-02 07:40] LABS: INTERNATIONAL NORM RATIO 1.9 (2.0-3.5)
[2018-12-02 08:00] VITALS: BP 112/58
[2018-12-02 12:00] VITALS: BP 112/64
[2018-12-02 16:00] VITALS: BP 124/48
[2018-12-02 20:00] VITALS: BP 130/52
--- NOTE | 2018-12-02 20:30 | NUR ---
SLEEPING. NO DISTRESS NOTED. AWAKENS EASILY. RESPIRATIONS EASY. LUNGS DIMINISHED. PULSE OX 92% 2L. TESIO INTACT RIGHT CHEST. +3 BLE EDEMA, TUBI-MULTIMEDIA PROGRAMMER APPLIED. CALL LIGHT WITHIN REACH. NO VOICED COMPLAINTS
--- NOTE | 2018-12-02 21:05 | NUR ---
24 HR chart check completed.
[2018-12-03] VITALS: BP 128/51
--- NOTE | 2018-12-03 | NUR ---
SLEEPING. NO DISTRESS NOTED. RESPIRATIONS EASY. VSS. CALL LIGHT WITHIN REACH
[2018-12-03] MEDS ORDERED: GOOD NEIGHBOR150 MG PO (02:38)
--- NOTE | 2018-12-03 06:00 | NUR ---
SLEPT THROUGHOUT NIGHT WITH NO DISTRESS NOTED. RESPIRATIONS EASY. CALL LIGHT WITHIN REACH. NO VOICED COMPLAINTS THIS SHIFT
[2018-12-03 06:55] LABS: CREATININE 5.23 mg/dL (0.70-1.30); POTASSIUM 4.1 mmol/L (3.5-5.1)
[2018-12-03 07:39] LABS: INTERNATIONAL NORM RATIO 2.3 (2.0-3.5)
[2018-12-03 08:00] VITALS: BP 126/53
[2018-12-03 12:00] VITALS: BP 126/55
--- NOTE | 2018-12-03 14:54 | NUR ---
Discharge instructions reviewed with patient/family. Patient receptive and verbalizes understanding. Follow-up care arranged. Written instructions given to patient/family. PATIENT DISCHARGED HOME VIA WHEELCHAIR WITH GRANDDAUGHTER. DISCHARGE INSTRUCTIONS WENT OVER WITH PATIENT AND GRANDDAUGHTER AND KNOWS WHEN HIS FOLLOW UP APPT ARE. PADDY LIN
--- NOTE | 2018-12-04 09:49 | NUR ---
Spoke to Agnieszka at [facility]. Patient scheduled for dialysis tomorrow, December 05, at 1145 in [place]. Attempted to reach patient at [phone] with no success. Left voicemail. Awaiting return call.
--- NOTE | 2018-12-04 11:22 | NUR ---
CLIENT HR MANAGER reached out to the patient, there was no answer. Left voicemail for a return call. -PEDRO PABLO Godoy
--- NOTE | 2018-12-04 14:06 | NUR ---
PEDRO PABLO reached out to the patient in regards to his appointment tomorrow. There was no answer. No message was left as there has been 2 already today. The patient would qualify for a reduced fares with [employer]. An application would have to be submitted to [employer]. -PEDRO PABLO Godoy
--- NOTE | 2018-12-05 11:04 | NUR ---
Patient called. Discussed dialysis treatments have been set up for TTS at 1145. Patient is unsure of how he will make it to his appointments. blasting worker to call [facility]. [facility] has not returned previous calls. Spoke to Jonna at [facility] regarding patient not being able to start dialysis today as it is 1100 and patient was unaware of dialysis times due to unsuccessful multiple attempts to reach patient yesterday. Patient states he will not be able to make the dialysis treatment on either as he has his fistula surgery scheduled for at [place]. Jonna at [facility] notified of above also. Start of dialysis care has been pushed back to next Tuesday 12/12 per Jonna. blasting worker notified. Dr. Garcia's office notified.
--- NOTE | 2018-12-05 11:28 | NUR ---
PEDRO PABLO reached out to [employer] to schedule transportation for the patients appointment next week. VASCULAR MANAGER was transferred to the voicemail box of the care team coordinator scheduler. Requested call back. Will await for return call or will follow up. -PEDRO PABLO Godoy
--- NOTE | 2018-12-05 12:10 | NUR ---
PEDRO PABLO reached out to [facility] the patients first santos at [facility] is 12/12- [facility] is already booked this day. They would be able to machine pecan picker on start12/14. PEDRO PABLO reached out to [employer] to see about the fare expense it is [address] PEDRO PABLO reached out to the patient. It was explained to the patient [facility] would not be able to pick him up 12/12 and they do not run out of communities on Saturdays. The patient requested his Dialysis days be changed. PEDRO PABLO informed the patient he would have to contact the facility himself to have the days changed to accomadate his needs. The patient stated "I'm not doing all of that". Then the patient stated he would speak with his granddaughter Elizabeth about her work schedule, and to explain the situation to the patient. The patient did not have a way to write down my info, PEDRO PABLO explained would call back in an hour to discuss the matter with his granddaughter, he understood. -PEDRO PABLO Godoy
--- NOTE | 2018-12-05 12:48 | NUR ---
PEDRO PABLO spoke with the patient who gave the phone to his granddaughter Wong. PEDRO PABLO explained the situation. She stated she would contact the Dailysis clinic to see if she could have the days changed. She stated she would take the patient to the first appointment. PEDRO PABLO provided her with the [facility] website, she stated she did not want anything arranged in advance because she was going to see if the patient could change the days he has treatment. CAGE CASHIER provided her with contact information in case she would need assistance. -PEDRO PABLO Godoy
== END 2018-12-03 14:54 | disposition home or self-care (01) | DRG 291 ==
LOC: 5E 10:19
PROVIDERS: Internal Medicine Nephrology; Student in an Organized Health Care Education/Training Program; ADMIT Internal Medicine
DX: I13.2 Hypertensive heart and chronic kidney disease with heart failure and with stage 5 chronic kidney disease, or end stage renal disease (principal); N18.6 End stage renal disease; I50.33 Acute on chronic diastolic (congestive) heart failure; D61.818 Other pancytopenia; N17.9 Acute kidney failure, unspecified; T82.41XA Breakdown (mechanical) of vascular dialysis catheter, initial encounter; N04.9 Nephrotic syndrome with unspecified morphologic changes; F10.10 Alcohol abuse, uncomplicated; E66.9 Obesity, unspecified; D72.821 Monocytosis (symptomatic); I25.10 Atherosclerotic heart disease of native coronary artery without angina pectoris; N40.0 Benign prostatic hyperplasia without lower urinary tract symptoms; K21.9 Gastro-esophageal reflux disease without esophagitis; D64.9 Anemia, unspecified; M10.9 Gout, unspecified; E11.51 Type 2 diabetes mellitus with diabetic peripheral angiopathy without gangrene; E11.65 Type 2 diabetes mellitus with hyperglycemia; J44.9 Chronic obstructive pulmonary disease, unspecified; E11.22 Type 2 diabetes mellitus with diabetic chronic kidney disease; Y84.8 Other medical procedures as the cause of abnormal reaction of the patient, or of later complication, without mention of misadventure at the time of the procedure; E87.6 Hypokalemia; R79.81 Abnormal blood-gas level; E88.09 Other disorders of plasma-protein metabolism, not elsewhere classified; Z87.891 Personal history of nicotine dependence; Z79.4 Long term (current) use of insulin; Z86.718 Personal history of other venous thrombosis and embolism; Z79.01 Long term (current) use of anticoagulants; Z82.49 Family history of ischemic heart disease and other diseases of the circulatory system; Z84.89 Family history of other specified conditions; Z79.899 Other long term (current) drug therapy; Y92.89 Other specified places as the place of occurrence of the external cause; Z99.2 Dependence on renal dialysis; Z68.34 Body mass index [BMI] 34.0-34.9, adult

== ENCOUNTER → 2018-12-06 | Outpatient (CLI) | payer MEDICARE ==
[~2018-12-06] MED LIST changes: +DULCOLAX5 M1 PO; +GOOD NEIGHBOR150 MG PO
[2018-12-06 14:56] LABS: CREATININE 4.28 mg/dL (0.70-1.30); POTASSIUM 3.9 mmol/L (3.5-5.1)
== END | disposition home or self-care (01) ==
LOC: LAB 13:23
PROVIDERS: Internal Medicine
DX: E88.09 Other disorders of plasma-protein metabolism, not elsewhere classified (principal); E87.6 Hypokalemia; N18.3 Chronic kidney disease, stage 3 (moderate)

== ENCOUNTER → 2019-01-16 | Outpatient (CLI) | payer MEDICARE | END | disposition home or self-care (01) | LOC: RAD 12:02 | DX: J90 Pleural effusion, not elsewhere classified (principal) ==

== ENCOUNTER 2019-04-05 19:58 | Emergency (ER) | payer MEDICARE ==
[~2019-04-05] VITALS: Ht 177.8 cm; Wt 82.6 kg
[2019-04-05 20:36] LABS: BASO % 0.2 % (0.0-1.0); EOS # 0.3 10*3/uL (0.0-0.4); EOS % 6.3 % (1.0-4.0); HEMATOCRIT 41.9 % (42.0-52.0); HEMOGLOBIN 12.7 g/dl (14.0-18.0); LYMPH # 0.8 10*3/uL (1.3-4.4); LYMPH % 17.5 % (27.0-41.0); MEAN CELL VOLUME 98.4 fl (80.0-94.0); MEAN CORPUSCULAR HGB 29.8 pg (27.0-31.0); MEAN CORPUSCULAR HGB CONC 30.3 g/dl (33.0-37.0); MEAN PLATELET VOLUME 11.7 fl (9.6-12.3); MONO # 0.5 10*3/uL (0.1-1.0); MONO % 9.7 % (3.0-9.0); NEUT # 3.1 10*3/uL (2.3-7.9); NEUT % 66.1 % (47.0-73.0); PLATELET COUNT AUTOMATED 102 10*3/uL (130-400); RED BLOOD COUNT 4.26 10*6/uL (4.50-5.90); RED CELL DISTRI WIDTH 13.9 % (0-14.5); WHITE BLOOD COUNT 4.6 10*3/uL (4.8-10.8)
[2019-04-05 20:42] LABS: INTERNATIONAL NORM RATIO 1.2 (2.0-3.5)
== END 2019-04-05 21:25 | disposition home or self-care (01) ==
LOC: ED 19:58
PROVIDERS: Emergency Medicine
DX: T82.590A Other mechanical complication of surgically created arteriovenous fistula, initial encounter (principal); I25.10 Atherosclerotic heart disease of native coronary artery without angina pectoris; J44.9 Chronic obstructive pulmonary disease, unspecified; K21.9 Gastro-esophageal reflux disease without esophagitis; E11.40 Type 2 diabetes mellitus with diabetic neuropathy, unspecified; E11.22 Type 2 diabetes mellitus with diabetic chronic kidney disease; I13.2 Hypertensive heart and chronic kidney disease with heart failure and with stage 5 chronic kidney disease, or end stage renal disease; N18.6 End stage renal disease; I50.32 Chronic diastolic (congestive) heart failure; E78.00 Pure hypercholesterolemia, unspecified; Z99.2 Dependence on renal dialysis; Z87.891 Personal history of nicotine dependence; Z79.899 Other long term (current) drug therapy; Z79.4 Long term (current) use of insulin; Y83.8 Other surgical procedures as the cause of abnormal reaction of the patient, or of later complication, without mention of misadventure at the time of the procedure; Y92.89 Other specified places as the place of occurrence of the external cause

== ENCOUNTER 2019-08-17 07:56 | Emergency (ER) | payer MEDICARE ==
[~2019-08-17] VITALS: Ht 177.8 cm; Wt 122.5 kg
[2019-08-17 09:46] LABS: BASO % 0.2 % (0.0-1.0); EOS # 0.2 10*3/uL (0.0-0.4); EOS % 4.2 % (1.0-4.0); HEMATOCRIT 30.7 % (42.0-52.0); LYMPH # 0.7 10*3/uL (1.3-4.4); LYMPH % 16.1 % (27.0-41.0); MEAN CELL VOLUME 103.7 fl (80.0-94.0); MEAN CORPUSCULAR HGB 31.4 pg (27.0-31.0); MEAN CORPUSCULAR HGB CONC 30.3 g/dl (33.0-37.0); MEAN PLATELET VOLUME 11.4 fl (9.6-12.3); MONO # 0.3 10*3/uL (0.1-1.0); MONO % 6.8 % (3.0-9.0); NEUT # 3.3 10*3/uL (2.3-7.9); NEUT % 72.3 % (47.0-73.0); PLATELET COUNT AUTOMATED 98 10*3/uL (130-400); RED BLOOD COUNT 2.96 10*6/uL (4.50-5.90); RED CELL DISTRI WIDTH 14.2 % (0-14.5); WHITE BLOOD COUNT 4.5 10*3/uL (4.8-10.8)
[2019-08-17 09:53] LABS: ACT PARTIAL THROMBO TIME 27.5 SECONDS (20.0-32.1); INTERNATIONAL NORM RATIO 1.2 (2.0-3.5)
[2019-08-17 10:20] LABS: CREATININE 5.35 mg/dL (0.70-1.30); POTASSIUM 4.5 mmol/L (3.5-5.1)
== END 2019-08-17 12:16 | disposition short-term general hospital (02) ==
LOC: ED 07:56
PROVIDERS: Emergency Medicine
DX: T80.89XA Other complications following infusion, transfusion and therapeutic injection, initial encounter (principal); E78.00 Pure hypercholesterolemia, unspecified; I25.10 Atherosclerotic heart disease of native coronary artery without angina pectoris; I13.2 Hypertensive heart and chronic kidney disease with heart failure and with stage 5 chronic kidney disease, or end stage renal disease; E11.22 Type 2 diabetes mellitus with diabetic chronic kidney disease; I50.32 Chronic diastolic (congestive) heart failure; N18.6 End stage renal disease; Z79.899 Other long term (current) drug therapy; Z79.01 Long term (current) use of anticoagulants; Z79.2 Long term (current) use of antibiotics; Z99.2 Dependence on renal dialysis; Y92.89 Other specified places as the place of occurrence of the external cause

== ENCOUNTER 2019-09-24 13:30 | Emergency (ER) | payer MEDICARE ==
[~2019-09-24] VITALS: Ht 177.8 cm; Wt 98.9 kg
[2019-09-24 14:15] LABS: BASO % 0.5 % (0.0-1.0); EOS # 0.1 10*3/uL (0.0-0.4); EOS % 2.6 % (1.0-4.0); HEMATOCRIT 41.6 % (42.0-52.0); LYMPH # 0.8 10*3/uL (1.3-4.4); LYMPH % 19.6 % (27.0-41.0); MEAN CELL VOLUME 102.5 fl (80.0-94.0); MEAN CORPUSCULAR HGB CONC 31.3 g/dl (33.0-37.0); MEAN PLATELET VOLUME 11.1 fl (9.6-12.3); MONO # 0.5 10*3/uL (0.1-1.0); MONO % 13.4 % (3.0-9.0); NEUT # 2.5 10*3/uL (2.3-7.9); NEUT % 63.6 % (47.0-73.0); PLATELET COUNT AUTOMATED 117 10*3/uL (130-400); RED BLOOD COUNT 4.06 10*6/uL (4.50-5.90); RED CELL DISTRI WIDTH 14.6 % (0-14.5); WHITE BLOOD COUNT 3.9 10*3/uL (4.8-10.8)
[2019-09-24 14:23] LABS: ACT PARTIAL THROMBO TIME 41.3 SECONDS (20.0-32.1); INTERNATIONAL NORM RATIO 2.5 (2.0-3.5)
[2019-09-24 14:28] LABS: ALBUMIN 3.5 gm/dl (3.1-4.5); ALKALINE PHOSPHATASE 91 U/L (45-117); BUN 11 mg/dl (7-24); CHLORIDE 104 mmol/L (98-107); CREATININE 3.04 mg/dL (0.70-1.30); LIPASE 136 U/L (73-393); POTASSIUM 4.4 mmol/L (3.5-5.1); SGOT/AST 26 IU/L (3-35); SGPT/ALT 11 U/L (12-78); SODIUM 138 mmol/L (136-145); TOTAL PROTEIN 7.8 gm/dL (6.4-8.2)
[2019-09-24 14:29] LABS: TROPONIN I < 0.015 ng/ml (<0.045)
[2019-09-24 16:17] VITALS: BP 117/92
[2019-09-24 16:32] VITALS: BP 125/83
[2019-09-24 16:47] VITALS: BP 122/51
[2019-09-24 17:02] VITALS: BP 109/58
[2019-09-24 17:17] VITALS: BP 114/57
== END 2019-09-24 18:52 | disposition home or self-care (01) ==
LOC: ED 13:30
PROVIDERS: Emergency Medicine
DX: R58 Hemorrhage, not elsewhere classified (principal); I12.9 Hypertensive chronic kidney disease with stage 1 through stage 4 chronic kidney disease, or unspecified chronic kidney disease; E11.22 Type 2 diabetes mellitus with diabetic chronic kidney disease; N18.9 Chronic kidney disease, unspecified; M19.90 Unspecified osteoarthritis, unspecified site; E78.00 Pure hypercholesterolemia, unspecified; Z79.899 Other long term (current) drug therapy; Z79.01 Long term (current) use of anticoagulants; Z79.4 Long term (current) use of insulin

== ENCOUNTER → 2019-12-19 | Outpatient (CLI) | payer MEDICARE ==
[2019-12-19 13:03] LABS: BASO % 0.2 % (0.0-1.0); EOS # 0.2 10*3/uL (0.0-0.4); EOS % 4.6 % (1.0-4.0); HEMATOCRIT 42.3 % (42.0-52.0); LYMPH # 0.7 10*3/uL (1.3-4.4); LYMPH % 17.5 % (27.0-41.0); MEAN CELL VOLUME 96.4 fl (80.0-94.0); MEAN CORPUSCULAR HGB 29.6 pg (27.0-31.0); MEAN CORPUSCULAR HGB CONC 30.7 g/dl (33.0-37.0); MEAN PLATELET VOLUME 11.9 fl (9.6-12.3); MONO # 0.4 10*3/uL (0.1-1.0); MONO % 9.7 % (3.0-9.0); NEUT # 2.8 10*3/uL (2.3-7.9); NEUT % 67.8 % (47.0-73.0); PLATELET COUNT AUTOMATED 98 10*3/uL (130-400); RED BLOOD COUNT 4.39 10*6/uL (4.50-5.90); RED CELL DISTRI WIDTH 14.1 % (0-14.5); WHITE BLOOD COUNT 4.1 10*3/uL (4.8-10.8)
[2019-12-19 13:24] LABS: ALBUMIN 3.5 gm/dl (3.1-4.5); CREATININE 3.31 mg/dL (0.70-1.30); POTASSIUM 3.8 mmol/L (3.5-5.1); TOTAL PROTEIN 7.9 gm/dL (6.4-8.2)
== END | disposition home or self-care (01) ==
LOC: LAB 12:40
PROVIDERS: Podiatrist
DX: L08.1 Erythrasma (principal); I10 Essential (primary) hypertension

== ENCOUNTER → 2020-01-14 | Outpatient (CLI) | payer MEDICARE | END | disposition home or self-care (01) | LOC: MRI 12:44 | PROVIDERS: ATTEND Podiatrist | DX: S92.414A Nondisplaced fracture of proximal phalanx of right great toe, initial encounter for closed fracture (principal); S92.514A Nondisplaced fracture of proximal phalanx of right lesser toe(s), initial encounter for closed fracture; M86.171 Other acute osteomyelitis, right ankle and foot; R60.0 Localized edema; M79.89 Other specified soft tissue disorders; L03.031 Cellulitis of right toe; X58.XXXA Exposure to other specified factors, initial encounter; Y93.89 Activity, other specified; Y92.89 Other specified places as the place of occurrence of the external cause; Y99.8 Other external cause status ==

== ENCOUNTER → 2021-09-25 | Outpatient (CLI) | payer MEDICARE ==
[2021-09-25 10:56] LABS: FREE T4 1.18 ng/dl (0.76-1.46); THYROID STIM HORMONE (HS) 1.6 uIU/ml (0.358-4.75)
== END | disposition home or self-care (01) ==
LOC: LAB 10:02
PROVIDERS: ATTEND Internal Medicine
DX: E11.65 Type 2 diabetes mellitus with hyperglycemia (principal); I10 Essential (primary) hypertension

== ENCOUNTER 2022-03-19 10:39 | Emergency (ER) | payer MEDICARE ==
[~2022-03-19] VITALS: Ht 177.8 cm; Wt 112.0 kg
== END 2022-03-19 12:14 | disposition home or self-care (01) ==
LOC: ED 10:39
DX: I95.9 Hypotension, unspecified (principal); I12.9 Hypertensive chronic kidney disease with stage 1 through stage 4 chronic kidney disease, or unspecified chronic kidney disease; E11.22 Type 2 diabetes mellitus with diabetic chronic kidney disease; N18.9 Chronic kidney disease, unspecified; Z99.2 Dependence on renal dialysis; Z79.899 Other long term (current) drug therapy; Z90.89 Acquired absence of other organs; Z98.890 Other specified postprocedural states; Z87.891 Personal history of nicotine dependence

== ENCOUNTER → 2023-01-12 | Outpatient (CLI) | payer OTHER ==
[~2023-01-12] MED LIST changes: +ASPIRIN ADULT L81 M1 PO; +CALCIUM500 M1 PO; +CARVEDILOL12.5 MG PO; +FUROSEMIDE80 MG PO; +JANUVIA50 MG PO
== END | disposition home or self-care (01) ==
LOC: RAD 11:45
PROVIDERS: ATTEND Internal Medicine
DX: J90 Pleural effusion, not elsewhere classified (principal); I51.7 Cardiomegaly; I70.0 Atherosclerosis of aorta; R91.8 Other nonspecific abnormal finding of lung field; M47.814 Spondylosis without myelopathy or radiculopathy, thoracic region